=== PATIENT | male | born 1960 | race Caucasian/White ===

== ENCOUNTER 2019-08-24 11:05 | Inpatient (IN) | payer OTHER, SELFPAY ==
--- NOTE | 2019-08-24 11:40 | CT ---
CT BRAIN NONCONTRAST: DATE: 08/24/2019 HISTORY: 59-year-old male with altered mental status: Confusion FINDINGS: There is no evidence of acute intra-axial or extra-axial hemorrhage. There is no midline shift or any other mass effect. There is no extra-axial fluid collection. There is no evidence of obstructive hydrocephalus. Calvarium is intact. IMPRESSION: No acute intracranial findings.
[2019-08-24 11:41] LABS: #Basophils 0.1 thou/uL (0.0-0.2); #Eosinphils 0.4 thou/uL (0.0-0.7); #Lymphocytes 1.4 thou/uL (1.20-3.40); #Monocytes 0.5 thou/uL (0.11-0.59); #Neutrophils 2.5 thou/uL (1.40-6.50); %Basophils 1.4 % (0.0-1.0); %Eosinophils 8.7 % (0.0-10.0); %Lymphocytes 28.4 % (21.0-51.0); %Monocytes 10.5 % (0.0-10.0); %Neutrophils 51.1 % (42.0-75.0); Hemoglobin 10.7 g/dL (14.0-18.0); Mean Corpuscular HGB CONC 34.1 g/dL (32.0-36.0); Mean Corpuscular Hemoglobin 32.4 pg (27.0-31.0); Mean Corpuscular Volume 95.1 fL (78.0-98.0); Mean Platelet Volume 8.2 fL (7.4-10.4); Platelet Count 139 thou/uL (130-400); RBC Distribution Width 14.3 % (11.5-14.5)
[2019-08-24 12:03] LABS: ALT (SGPT) 17 U/L (8-55); AST (SGOT) 37 U/L (5-34); Albumin 2.2 g/dL (3.4-4.8); Alkaline Phosphatase 198 U/L (40-110); Anion Gap 8 mmol/L (10-20); BUN (Urea Nitrogen) 26 mg/dL (8.4-25.7); Bilirubin, Total 1.4 mg/dL (0.2-1.2); Calc. Creatinine Clearance 0 mL/min (70-130); Calcium 7.7 mg/dL (7.8-10.44); Carbon Dioxide 24 mmol/L (23-31); Chloride 112 mmol/L (98-107); Estimated GFR-MDRD 32; Globulin 3.9 g/dL (2.4-3.5); Glucose 101 mg/dL (80-115); Lipase 39 U/L (8-78); Protein, Total 6.1 g/dL (5.8-8.1); Sodium 140 mmol/L (136-145)
--- NOTE | 2019-08-24 12:27 | RAD ---
RADIOGRAPH CHEST 1 VIEW: DATE: 08/24/2019 TIME: 11:43 AM HISTORY: 59-year-old male with dyspnea COMPARISON: none FINDINGS: Dense opacification of lower half to lower two thirds of right lung, heterogeneously so at the right midlung zone. Right apex and all visualized left lung nunez are grossly clear of consolidation and edema. On one of the 2 AP images, there is an approximately 1.7 cm irregularly-shaped nodular densit y with stellate appearance overlying the left midlung zone. It is difficult to visualize on the other image. It could represent calcification at left fifth costochondral junction. However, a pulmon yoselin nodule is a possibility. No pneumothorax. IMPRESSION: 1. Opacification of right mid and lower lung zones. Possibilities include large right pleural effusio n and underlying consolidation or severe atelectasis, large diaphragmatic hernia, or elevated right hemidiaphragm. 2. Questionable spiculated left pulmonary nodule versus artifact. 3. Consider chest CT.
[2019-08-24 13:10] LABS: Bacteria/HPF None Seen HPF (None Seen); Bilirubin Negative (Negative); Blood, Urine 2+ (Negative); Clarity Clear (Clear); Glucose, Urine (Dipstick) Normal (Negative); Leukocyte Negative Leu/uL (Negative); Nitrite Negative (Negative); Protein, Urine (Dipstick) 70 mg/dL (Neg-Trace); RBC/HPF 21-50 HPF (0-3); Squamous Epithelial None Seen HPF (0-3); Urobilinogen 3 mg/dL (Less than 2); WBC/HPF 0-3 HPF (0-3); Yeast-Budding 1+ HPF (None Seen)
--- NOTE | 2019-08-24 13:48 | HP ---
PRIMARY CARE PHYSICIAN: [facility] Call admission. REASON FOR ADMISSION: Hepatic encephalopathy, anasarca. HISTORY OF PRESENT ILLNESS: A 59-year-old male who has underlying history of alcoholic cirrhosis of liver with portal hypertension, who is originally from [place] and he moved to [facility] about two weeks ago. Before coming to the [facility], the patient was admitted at [facility]. The patient required paracentesis and thoracentesis for hepatic hydrothorax and ascites. The patient was given Lasix and Aldactone after discharged from the hospital. The patient came two weeks ago at [facility]. Initially, he was doing okay, but for last 3 to 5 days, the patient has increasing shortness of breath and increasing confusion. The patient was more shaky. The patient did not have any fever. He denies any constipation or melena or hematochezia. He denies any having upper or lower endoscopy. The patient denies any hematemesis in the past. The patient denies any fever or chills or abdominal pain. The patient was evaluated at [facility] and from there, the patient was sent to emergency room. In the emergency room, his CT brain is negative. Chest x-ray showed right-sided pleural effusion. The patient had routine blood test, which showed anemia, chronic kidney disease with creatinine 2.10, but baseline kidney function is not known. The patient also has abnormal LFT. His ammonia level was elevated. The patient was also having asterixis in the emergency room and the patient is being admitted for further evaluation. REVIEW OF SYSTEMS: CONSTITUTIONAL: Negative for weight loss or gain, ability to conduct usual activities. SKIN: Negative for rash, itching. EYES: Negative for double vision, pain. ENT/MOUTH: Negative for nose bleeding, neck stiffness, pain, tenderness. CARDIOVASCULAR: Negative for palpitations, dyspnea on exertion, orthopnea. RESPIRATORY: Negative for shortness of breath, wheezing, cough, hemoptysis, fever or night sweats. GASTROINTESTINAL: Negative for poor appetite, abdominal pain, heartburn, nausea, vomiting, constipation, or diarrhea. GENITOURINARY: Negative for urgency, frequency, dysuria, nocturia. MUSCULOSKELETAL: Negative for pain, swelling. NEUROLOGIC/PSYCHIATRIC: Negative for anxiety, depression. ALLERGY/IMMUNOLOGIC: Negative for skin rash, bleeding tendency. Please see my HPI for pertinent positive and negative. All other review of systems reviewed and negative except as mentioned in the HPI. PAST MEDICAL HISTORY: Alcoholic liver disease with alcoholic cirrhosis with portal hypertension, pleural effusion and ascites, chronic kidney disease. PAST SURGICAL HISTORY: The patient had thoracentesis and paracentesis, but no other surgery. ALLERGIES: NO KNOWN DRUG ALLERGIES. CURRENT HOME MEDICATIONS: 1. Lasix 40 mg daily. 2. Aldactone 100 mg p.o. daily. FAMILY HISTORY: No strong family history of premature coronary artery disease, stroke, or cancer. SOCIAL HISTORY: The patient is originally from [place] and he recently moved to this town for new work, no smoking, he was very heavy alcoholic, but lately he reduced and quit drinking. He denies any other illicit drug abuse. EMERGENCY ROOM COURSE: Reviewed. PHYSICAL EXAMINATION: VITAL SIGNS: Currently, blood pressure 144/66, pulse 72, respiratory rate 16, temperature 98.8, saturation 99% on room air. Weight 99 kg. GENERAL: The patient is alert, awake, confused, chronically ill, no acute distress. HEAD: Normocephalic, atraumatic. EYES: Icterus noted. No nystagmus. Extraocular muscle intact. ENT: Oropharynx within normal limits. Moist mucous membranes. No pharyngeal erythema. No exudate. NECK: Supple. No JVD. No meningeal signs of irritation. LUNGS: Air entry reduced at the right side, no rales, no wheeze. No accessory muscles of respiration in use. CARDIAC: S1 and S2 regular, soft systolic murmur noted, PVCs noted on phototypesetting equipment monitor. ABDOMEN: Soft, bowel sounds present, nontender. No organomegaly. Ascites noted. No peritoneal sign. BACK: Unremarkable. No CVA tenderness. EXTREMITIES: Upper extremity; passive movement of all joints are normal. Asterixis noted. Lower extremity; bilateral lower extremity pitting edema noted. Good distal pulsation. SKIN: No skin rash. HEMATOLOGICAL SYSTEM: No lymphadenopathy. PSYCHIATRIC: Normal affect. NEUROLOGIC: Grossly nonfocal examination, but asterixis noted. SIGNIFICANT LABORATORY DATA: EKG showing bigeminy. Chest x-ray showing right pleural effusion. CT brain showing no acute intracranial process. CT chest also showing spiculated left pulmonary nodule. CBC; WBC 5.0, hemoglobin 10.7, platelet 139. BMP; sodium 140, potassium 4.0, chloride 112, carbon dioxide 24, anion gap 8, BUN 26, creatinine 2.10, glucose 101, calcium 7.7. LFT; AST 37, ALT 17, alkaline phosphatase 198, albumin 2.2, lipase 39. Troponin negative. Ammonia 98. Lactic acid 1.10. Alcohol level less than 10. ASSESSMENT: 1. Hepatic encephalopathy. 2. Acute kidney failure. 3. Anasarca due to cirrhosis of liver. 4. Hepatic hydrothorax. 5. Ascites. 6. Abnormal LFTs due to chronic liver disease. 7. Spiculated pulmonary nodule. PLAN: 1. Full admission to telemetry floor. Nephrologic consultation for acute kidney failure. Gastroenterology consultation for cirrhosis of liver. Lactulose 20 g q.i.d., rifaximin [address] chest without contrast to rule out a pulmonary nodule. The patient may need pulmonary consultation for thoracentesis if needed. We will monitor renal function. We will empirically start Rocephin 1 g q.24 hour. We will check alpha-fetoprotein level, HIV, hepatitis profile. Further investigation will defer to Neph regional engagement consultant. The patient will need medical records to be obtained from other hospital before deciding more testing. 2. Deep venous thrombosis prophylaxis, SCD boots. We will check coagulation panel. 3. Gastrointestinal prophylaxis, Protonix 40 mg IV daily. CODE STATUS: The patient is full code. DISPOSITION PLAN: Based on clinical course. We are expecting the patient stay in hospital more than 2 midnights. Plan of care discussed with the patient and family member at bedside. Job ID: [id number]
[2019-08-24] MEDS ORDERED: Sodium Chloride 0.65% Nasal 44 ML BOT EA NARE PRN (15:36)
[2019-08-24] MEDS ORDERED: Artificial Tears 18 DROP/0.9 ML EA EYE PRN (15:36)
[2019-08-24] MEDS ORDERED: Bisacodyl 10 MG SUPP PR PRN (15:36)
[2019-08-24] MEDS ORDERED: hydrALAZINE 20 MG/ML VIAL SLOW IVP PRN (15:36)
[2019-08-24] MEDS ORDERED: Calcium Carbonate 500 MG ChewTAB PO PRN (15:36)
[2019-08-24] MEDS ORDERED: Acetaminophen 325 MG TAB PO PRN (15:36)
[2019-08-24] MEDS ORDERED: Cepastat Lozenges 1 LOZ PO PRN (15:36)
[2019-08-24] MEDS ORDERED: Senokot S 8.6-50 MG TAB PO PRN (15:36)
[2019-08-24] MEDS ORDERED: Ondansetron ODT 4 MG TAB PO PRN (15:36)
[2019-08-24] MEDS ORDERED: Ondansetron PF 4 MG/2 ML Vial IVP PRN (15:36)
[2019-08-24 15:46] VITALS: BMI 32.1
[2019-08-24] MEDS ORDERED: Furosemide 40 MG/4 ML VIAL SLOW IVP SCH (16:45)
[2019-08-24 16:49] LABS: Creatinine, Urine 120.29 mg/dL (63-166)
[2019-08-24 16:59] LABS: INR-International Normal Ratio 1.2; Prothrombin Time 14.9 sec (12.0-14.7)
[2019-08-24] MEDS: cefTRIAXone\\ROCEPHIN 1 GM in Sodium Chloride 0.9% 100 ML IVPB SCH (17:00)
[2019-08-24 17:20] LABS: Protein, Urine Random Quant 107 mg/dL (1-14); Urea Nitrogen, Random Urine 636 mg/dl
[2019-08-24 17:37] LABS: Ferritin 287.29 ng/mL (22-322)
[2019-08-24 17:43] LABS: Vitamin B12 729 pg/mL (211-911)
[2019-08-24 17:51] LABS: HBCM Index 0.09 S/CO (0-0.79); HBSAg Index 0.17 S/CO (0-0.99); HIV (1/2) Antibody/Antigen Non-Reactive (NonReactive); HIV 1/2 INDEX 0.13 S/CO (<1.00); Hep A IgM AB Non-Reactive (NonReactive); Hep A IgM S/CO 0.12 S/CO (0-0.79); Hep B Surf Ag Non-Reactive S/CO (NonReactive); Hep C IgG Ab Non-Reactive (NonReactive); Hep C Index 0.39 S/CO (0-0.79); Hepatitis B Core IgM Abs Non-Reactive (NonReactive)
--- NOTE | 2019-08-24 21:00 | CON ---
DATE OF CONSULTATION: 08/24/2019 SERVICE: Nephrology. REASON FOR CONSULTATION: Renal failure and volume overload. REQUESTING PHYSICIAN: Dr. Awais Apodaca. HISTORY OF PRESENT ILLNESS: A 59-year-old male patient with known history of cirrhotic liver disease, chronic kidney disease, and anasarca requiring prior thoracentesis and paracentesis, brought into the hospital due to altered mental sensorium of worsening forgetfulness and some confusion as well as some shortness of breath. The patient reportedly was diagnosed with liver disease and chronic kidney disease in 2016 when he was hospitalized in a [place] [facility]. He was subsequently discharged, but has been off medication up until about 3 weeks ago when he was hospitalized in a hospital in [place] when he was diuresed and also had paracenteses and thoracentesis for anasarca and shortness of breath. Patient reportedly has been doing well since discharge from the hospital in [place], but in the last few days was noted to be having increasing shortness of breath as well as some increasing confusion and memory lapses, hence was asked to come to the hospital for further evaluation and treatment. The patient denied nausea, vomiting, abdominal pain, chest pain, change in bowel habits, dizziness, headache, dysuria, hematuria, hematochezia, hematemesis, or dizziness. He admitted to generalized swelling, but reported that it markedly improved compared to his situation before hospitalization in [place]. On evaluation in the emergency room, the patient was found to have abnormal LFT as well as elevated creatinine of 2.1, hence was admitted to the hospital. He also was found to have elevated ammonia, hence diagnosis of hepatic encephalopathy as well as renal failure was made and the patient was admitted for further evaluation and treatment. He denied fever, chills, or cough. PAST MEDICAL HISTORY: 1. Alcohol liver disease with cirrhosis associated with decompensation, portal hypertension, and paracentesis as well as recurrent pleural effusion. 2. Chronic kidney disease. 3. Prior history of diabetes as well as morbid obesity. 4. Chronic alcohol use. PAST SURGICAL HISTORY: 1. Thoracentesis. 2. Paracentesis. FAMILY HISTORY: No strong family history of premature coronary artery disease, stroke, or cancer. SOCIAL HISTORY: The patient is . He used to live in [place], but now in [place] living with friends. He used to be a heavy alcohol user, but quit about 3-1/2 years ago. He also denied recreational drug use. ALLERGIES: NO KNOWN DRUG ALLERGIES REPORTED. CURRENT HOME MEDICATIONS: 1. Lasix 40 mg p.o. daily. 2. Aldactone 100 mg p.o. daily. 3. The patient also reported having some lactulose at home that he may not be taking it regularly. REVIEW OF SYSTEMS: A 12-point review of system performed was negative other than pertinent positives and negatives included in the history of present illness. PHYSICAL EXAMINATION: VITAL SIGNS: Temperature 98.1, pulse 74, respiratory rate 20, SpO2 of 97% on room air, blood pressure is 159/78. GENERAL: Middle-age male, in no obvious distress. Afebrile, acyanotic. HEENT: Normocephalic, atraumatic. Oral mucosa is moist. NECK: Supple with no JVD. CARDIOVASCULAR: Irregularly irregular with bigeminal PVCs. Normal. heart sounds 1 and 2. RESPIRATORY SYSTEM: Good air entry bilaterally except right base posteriorly with decreased air entry. No obvious rhonchi or use of accessory muscles appreciated. GASTROINTESTINAL: Abdomen is enlarged, but nontender. Bowel sound is normoactive. EXTREMITIES: [id number] bilateral leg edema noted. No erythema or cyanosis was appreciated. CENTRAL NERVOUS SYSTEM: Conscious, alert, oriented x3 with appropriate mental status. Memory lapses were appreciated. Cranial nerves 2 through 12 are grossly intact. No obvious asterixis or tremor appreciated. DIAGNOSTIC DATA: LABORATORY RESULTS: CBC showed WBC count of 5.0, hemoglobin of 10.7, MCV of 95.1, platelets of 139. Coagulation panel showed PT 14.9, INR 1.2. Chemistry showed sodium 140, potassium 4.0 chloride 112, CO2 of 24, BUN 26, creatinine 2.10, glucose 101, calcium 7.7, total bilirubin 1.4, AST 37, ALT was 17, alkaline phosphatase 198, total protein 6.1, albumin 2.2. Ammonia level is 98. Troponin is less than 0.010. Lactic acid is 1.1. Urinalysis showed clear yellow urine with pH of 6.5, specific gravity of 1.015, urine protein 70, normal glucose, negative ketone, 2+ blood, negative nitrite, bilirubin, and leukocyte esterase. Microscopy showed 21 to 50 rbc's and 0 to 3 wbc's with no bacteria noted. IMAGING STUDIES: Chest x-ray showed opacification of the right mid and lower lung zones with possibilities including large right pleural effusion and underlining consolidation or severe atelectasis, large diaphragmatic hernia or elevated right hemidiaphragm. There is a questionable spiculated left pulmonary nodule versus artifact noted, hence CT scan of the chest is recommended. CT scan of the brain showed no acute intracranial finding. ASSESSMENT: 1. Elevated creatinine: The patient has known history of chronic kidney disease. Baseline creatinine is unknown. due to acute on chronic renal failure or stable chronic kidney disease. Renal insufficiency is most likely due to hepatorenal syndrome or diabetic nephropathy given prior history of diabetes, which has subsided when patient lost significant amount of weight. 2. Known chronic kidney disease of unclear baseline creatinine. 3. Anasarca: Due to decompensated liver cirrhosis. 4. Liver cirrhosis with portal hypertension: Decompensated associated with right hydrothorax and recurrent ascites, status post recent thoracentesis and paracentesis. 5. Hypoalbuminemia. 6. Hepatic encephalopathy: This seems to be mild mostly due to memory lapses. PLAN: 1. Agree with diuretic therapy with Lasix and Aldactone. 2. We will also get him urine protein creatinine ratio as well as urine electrolytes to calculate the fractional excretion of urea and sodium. 3. We will monitor intake and output as well as renal function and electrolytes. 4. Albumin therapy is contemplated. 5. We will also get medical records from [facility] as well as the hospital in [place]. 6. Further treatment to follow depending on hospital course. Job ID: [id number]
[2019-08-24] MEDS: Rifaximin 550 MG TAB PO SCH (21:05)
[2019-08-25 04:58] LABS: #Basophils 0.1 thou/uL (0.0-0.2); #Eosinphils 0.5 thou/uL (0.0-0.7); #Lymphocytes 1.4 thou/uL (1.20-3.40); #Monocytes 0.5 thou/uL (0.11-0.59); #Neutrophils 2.2 thou/uL (1.40-6.50); %Basophils 1.5 % (0.0-1.0); %Eosinophils 9.9 % (0.0-10.0); %Lymphocytes 29.6 % (21.0-51.0); Hemoglobin 9.7 g/dL (14.0-18.0); Mean Corpuscular HGB CONC 33.6 g/dL (32.0-36.0); Mean Corpuscular Hemoglobin 32.4 pg (27.0-31.0); Mean Corpuscular Volume 96.3 fL (78.0-98.0); Mean Platelet Volume 8.2 fL (7.4-10.4); Platelet Count 121 thou/uL (130-400); RBC Distribution Width 14.4 % (11.5-14.5); Red Blood Cell (RBC) Count 3.01 mill/uL (4.70-6.10); White Blood Cell (WBC) Count 4.6 thou/uL (4.8-10.8)
[2019-08-25] MEDS: Furosemide 40 MG/4 ML VIAL SLOW IVP SCH ×2 (05:12→13:19)
[2019-08-25 05:18] LABS: ALT (SGPT) 14 U/L (8-55); AST (SGOT) 32 U/L (5-34); Albumin 1.8 g/dL (3.4-4.8); Alkaline Phosphatase 143 U/L (40-110); Anion Gap 11 mmol/L (10-20); BUN (Urea Nitrogen) 25 mg/dL (8.4-25.7); Bilirubin, Total 1.3 mg/dL (0.2-1.2); Calc. Creatinine Clearance 57 mL/min (70-130); Calcium 7.3 mg/dL (7.8-10.44); Carbon Dioxide 21 mmol/L (23-31); Chloride 112 mmol/L (98-107); Estimated GFR-MDRD 34; Globulin 3.4 g/dL (2.4-3.5); Glucose 130 mg/dL (80-115); Potassium 3.7 mmol/L (3.5-5.1); Protein, Total 5.2 g/dL (5.8-8.1); Sodium 140 mmol/L (136-145)
[2019-08-25] MEDS: Albumin 25% 25 GM/100 ML BOT IVPB SCH ×3 (07:17→21:45)
[2019-08-25] MEDS ORDERED: Spironolactone 100 MG TAB PO SCH (08:00)
[2019-08-25] MEDS: Sodium Bicarbonate Tab 325 MG TAB PO SCH ×3 (08:29→21:44)
[2019-08-25] MEDS: Rifaximin 550 MG TAB PO SCH ×2 (08:29→21:44)
--- NOTE | 2019-08-25 13:15 | PDOC.HOSPP ---
- Subjective Encounter Date: 08/25/19 Encounter Time: 13:10 Subjective: f/u for decompensated hepatic cirrhosis with NIKI likely due to hepatorenal syndrome. States feeling better, no confusion, less swelling on legs. - Objective Vital Signs & Weight: Vital Signs (12 hours) Temp Pulse Resp BP BP Pulse Ox 08/25/19 11:16 98.0 F 70 16 139/77 96 08/25/19 07:43 98.0 F 72 16 130/76 97 08/25/19 03:31 97.7 F 54 L 20 118/72 98 Weight Weight 220 lb I&O: 08/24/19 08/25/19 08/26/19 06:59 06:59 06:59 Intake Total 400 Balance 400 Result Diagrams: 08/25/19 04:30 08/25/19 04:30 Additional Labs: Laboratory Tests 08/24/19 08/24/19 08/24/19 11:27 11:27 16:34 Creatinine 2.10 H Ammonia 98 H Lipase 39 Tumor Marker AFP Less than 2.0 Vitamin B12 Folate Hepatitis A IgM Ab Hep Bs Antigen Hep B Core IgM Ab Hepatitis C Antibody HIV 1&2 Antigen & Ab 08/24/19 08/24/19 16:34 16:35 Creatinine Ammonia Lipase Tumor Marker AFP Vitamin B12 729 Folate 8.60 Hepatitis A IgM Ab Non-Reactive Hep Bs Antigen Non-Reactive Hep B Core IgM Ab Non-Reactive Hepatitis C Antibody Non-Reactive HIV 1&2 Antigen & Ab Non-Reactive Radiology Reviewed by me: Yes (CT brain - no acute process) EKG Reviewed by me: Yes (Tele - SR) Hospitalist ROS - Medication Medications: Active Medications Generic Name Dose Route Start Last Admin Trade Name Freq PRN Reason Stop Dose Admin Albumin Human 25 gm 08/25/19 06:30 08/25/19 07:17 Albumin 25% IVPB 08/25/19 22:31 25 gm Q8H GUSTABO Administration Furosemide 40 mg 08/25/19 06:00 08/25/19 05:12 Lasix SLOW IVP 40 mg 0600,1400 GUSTABO Administration Ceftriaxone Sodium 1 gm/ 100 mls @ 200 mls/hr 08/24/19 17:00 08/24/19 17:00 Sodium Chloride IVPB 100 mls Q24HR GUSTABO Administration Lactulose 20 gm 08/24/19 17:00 08/25/19 08:29 Lactulose PO 20 gm QID GUSTABO Administration Pantoprazole Sodium 40 mg 08/25/19 09:00 08/25/19 08:29 Protonix PO 40 mg DAILY GUSTABO Administration Rifaximin 550 mg 08/24/19 21:00 08/25/19 08:29 Xifaxan PO 550 mg BID GUSTABO Administration Sodium Bicarbonate 650 mg 08/25/19 09:00 08/25/19 08:29 Bicarbonate, Sodium PO 650 mg TID GUSTABO Administration Spironolactone 100 mg 08/25/19 08:00 08/25/19 08:29 Aldactone PO 100 mg QAM-WM GUSTABO Administration - Exam General Appearance: NAD, awake alert Eye: PERRL, anicteric sclera ENT: normocephalic atraumatic, no oropharyngeal lesions Neck: supple, symmetric, no JVD, no thyromegaly Heart: RRR, no murmur, no gallops, no rubs, normal peripheral pulses Heart - other findings: S1, S2 Respiratory: CTAB, no wheezes, no rales, no ronchi, normal chest expansion, no tachypnea Gastrointestinal: soft, non-tender, normal bowel sounds, no guarding, no rigidity Gastrointestinal - other findings: mild distention Extremities: no cyanosis, no clubbing, 1+ LE edema Skin: normal turgor, no lesions Neurological: cranial nerve grossly intact, no new deficit Musculoskeletal: normal tone, normal strength Psychiatric: normal affect, A&O x 3 Hosp A/P (1) Acute hepatic encephalopathy Code(s): K72.00 - ACUTE AND SUBACUTE HEPATIC FAILURE WITHOUT COMA Status: Acute Plan: Improved, continue Lactulose, serial monitoring (2) Hepatic cirrhosis Code(s): K74.60 - UNSPECIFIED CIRRHOSIS OF LIVER Status: Chronic Qualifiers: Hepatic cirrhosis type: alcoholic cirrhosis Plan: Continue Aldactone/Rifaximin, low-Na+ diet (3) NIKI (acute kidney injury) Code(s): N17.9 - ACUTE KIDNEY FAILURE, UNSPECIFIED Status: Acute Plan: Slow improvement, continue current rx, avoid nephrotoxic meds/limit contrast exposure (4) Normocytic anemia Code(s): D64.9 - ANEMIA, UNSPECIFIED Status: Chronic Plan: No evidence of acute blood loss, serial H/H monitoring, PPI - Plan perinatal social worker, out of bed/ambulate, DVT proph w/SCDs Stable currently Continue Aldactone/Lasix Continue Xifaxan OOB/ambulate AM lab: CMP, CBC, Ammonia Likely home in 24h
--- NOTE | 2019-08-25 14:13 | CON ---
DATE OF CONSULTATION: 08/24/2019 REASON FOR CONSULTATION: Liver cirrhosis, mild tremors of the hands, and also swelling of the legs. HISTORY OF PRESENT ILLNESS: Mr. Diego Carlin is a 59-year-old male with history of liver cirrhosis due to alcohol abuse that was diagnosed about 3-1/2 years ago. The patient lived in [place] at that time. The patient was hospitalized after he ingested some alcohol and some medication and he was in . The patient tells me for several days. At that time, he was diagnosed with liver cirrhosis due to alcohol abuse. He also had done at that time and had to go back one more time. He also of the pleural effusion on the right side. The patient had done well after he stopped drinking. The patient has moved to [place] for a couple of years from [place]. He was taking diuretics before, but he stopped taking diuretics . The patient has done well over the last couple of years. He moved to [facility] two weeks ago. The patient's friend told him that he has leg swelling and also abdominal swelling and he told him to come to the ER. In the ER, he was also found to have mild asterixis of the upper extremities. Serum ammonia levels are elevated and he was hospitalized. The patient has no prior history of . No prior history of GI bleeding. He never had a colonoscopy, but he tells me he had EGD done 3-1/2 years ago in [place]. He does not recall varicose veins. The patient was drinking very heavily until about 3 years ago. After diagnosis of liver cirrhosis, he quit drinking completely. He is awake, alert, and communicative. He is able to give me a reasonably good history. He has no history of any drug use. His lab data showed serum ammonia level of 98, which is elevated. His Chem-7 is normal except for BUN of 26, creatinine of 2.10. His calcium level is 7.7, bilirubin 1.4, AST 37, ALT 17. He has no relevant history. ALLERGIES: NONE. SOCIAL HISTORY: The patient is . He does not smoke, but has history of alcohol abuse until three years ago. No history of drug abuse. MEDICAL ILLNESSES: Liver cirrhosis, ascites due to alcohol abuse. No history of hypertension. No diabetes. No kidney disease. No lung disease. PAST SURGICAL HISTORY: None except for the paracentesis and also EGD done. FAMILY HISTORY: No family history of cancer. No family history of liver cirrhosis, heart attack, or lung disease. MEDICATIONS: Reviewed, which include: 1. Aldactone 100 once a day. 2. Furosemide 40 once a day. REVIEW OF SYSTEMS: Ten-point system review: CONSTITUTIONAL: No history of any fever or chills. Has good exercise tolerance. However, he has been losing weight and lost about 10 pounds. HEAD: No chronic headache. EYES: No impaired vision. No diplopia. EARS: No hearing loss. No discharge. NOSE: No nose bleed. THROAT: No sore throat. No dysphagia. NECK: No stiffness or limitation of movement. LUNGS: No chronic coughing, hemoptysis, dyspnea. CARDIOVASCULAR SYSTEM: No chest pain. No palpitation. No dyspnea, orthopnea, PND. GI: No abdominal pain. No nausea, no vomiting. No hematochezia or melena. : No dysuria, hematuria. MUSCULOSKELETAL, NEUROLOGIC, ENDOCRINE, HEMATOLOGICAL: Not known. PHYSICAL EXAMINATION: GENERAL: He is a very pleasant male. He appears comfortable. He is able to give me a reasonably good history. He is awake, alert, and communicative. He knows the date, time, place and where he is at. VITAL SIGNS: Afebrile, pulse is 74, blood pressure 159/78. HEENT: Conjunctivae are clear. NECK: Supple. No adenitis or thyromegaly noted. CARDIOVASCULAR SYSTEM: First and second heart sounds heard. LUNGS: Clear to auscultation. ABDOMEN: Distended, but soft. Abdomen is not firm, nontender. No organomegaly. No masses. EXTREMITIES: Reveal 2+ edema. SECOND VP HR ASSESSMENT: Grossly within normal limits, however, he has mild tremors on both upper extremities. LABORATORY DATA: Lytes are normal. BUN is 26, creatinine 2.10, glucose 101, calcium 7.7. Bilirubin 1.4, AST 37, ALT 17, alkaline phosphatase 198. Ammonia is elevated at 98. Albumin is 2.2. CBC shows mild anemia, hemoglobin 10.7, hematocrit 31.4, MCV 95.1, platelet count 139,000, polymorphs 51, lymphocytes 28, monocytes 10. CLINICAL IMPRESSION: A 59-year-old male with liver cirrhosis, ascites. Liver cirrhosis because of alcohol abuse. The patient presents with high ammonia level and also mild tremors of upper extremities. It is possible RECOMMENDATIONS: Lactulose 30 mL every 2 to 3 hours until he has multiple stools. If he starts having multiple loose stools, may cut down the lactulose to may be every 6 hours. At the present time, he is not septic and he has no evidence of any bleeding. I will make further recommendation depending on the hospital course. Job ID: [id number]
--- NOTE | 2019-08-25 14:39 | PRG ---
DATE OF SERVICE: 08/25/2019 SUBJECTIVE: This is a 59-year-old male, hospitalized with anasarca and mild encephalopathy. His ammonia level was 98. He is on lactulose . He is doing much better today. He has had 2 stools today. There is no abdominal pain, no nausea or vomiting. OBJECTIVE: GENERAL: He is awake, alert, oriented to time, place and person. VITAL SIGNS: Temperature is 98 degrees Fahrenheit, pulse is 70, and blood pressure is 139/77. CARDIOVASCULAR: Normal heart sounds. LUNGS: Clear to auscultation. ABDOMEN: Distended, but soft to palpate. No organomegaly. No tenderness. EXTREMITIES: Trace edema. IMPRESSION: 1. Liver cirrhosis. 2. Ascites. 3. Right pleural effusion. 4. Mild encephalopathy. RECOMMENDATION: 1. Continue lactulose. 2. Continue Xifaxan. 3. Low-sodium diet and continue diuretics. Also, recommend liver parenchyma. Job ID: [id number]
--- NOTE | 2019-08-25 15:33 | PRG ---
DATE OF SERVICE: 08/25/2019 SERVICE: Nephrology. SUBJECTIVE: A 59-year-old male with liver cirrhosis, admitted due to shortness of breath and mental status change of confusion and memory lapses. Nephrology is seeing the patient for renal insufficiency and edema. The patient reports feeling better. Shortness of breath has subsided. Denied nausea, vomiting, dysuria, hematuria, hematemesis, change in bowel habit, headache, dizziness, and difficulty urinating. OBJECTIVE: VITAL SIGNS: Temperature 98.0, pulse rate 72, respiratory rate 16, SpO2 of 97% on room air, and blood pressure is 130/72. I and O in the last 24 hours showed only total intake of 400. No urine output was measured. GENERAL: Comfortable male patient, in no obvious distress. Afebrile. Anicteric. Acyanotic. HEENT: Normocephalic and atraumatic. Oral mucosa is moist. NECK: Supple with no JVD. CARDIOVASCULAR: Regular rhythm and rate with normal heart sounds 1 and 2. RESPIRATORY: Fair air entry bilaterally with no obvious rhonchi or use of accessory muscles. Air entry decreased posteriorly, right base. GI: Abdomen is enlarged, soft, nontender, and nondistended with normal bowel sounds. EXTREMITIES: [id number] bilateral leg edema noted. No erythema appreciated. 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 Cranial nerves II through XII are grossly intact. No obvious asterixis noted. DIAGNOSTIC DATA: CBC today showed WBC count of 4.6, hemoglobin of 9.7, MCV of 96.3, and platelet of 121. Chemistry today showed sodium 140, potassium 3.7, chloride 112, CO2 of 21, BUN 25, creatinine 2.02, glucose 130, calcium 7.3, total bilirubin 1.3, AST 32, ALT 14, alkaline phosphatase 143, total protein 5.2, and albumin 1.8. ASSESSMENT: 1. Renal insufficiency: Most likely chronic kidney disease. However, acute kidney injury cannot be ruled out. The patient reported knowledge of chronic kidney disease since 2016. 2. Presumed chronic kidney disease, stage 3. Baseline creatinine is unknown. 3. Volume overload: Due to decompensated liver cirrhosis. 4. Metabolic acidosis. 5. Hypoalbuminemia. 6. Hypocalcemia. 7. Decompensated liver cirrhosis with anasarca. PLAN: 1. We will continue diuretic therapy. We will however increase spironolactone to 100 mg b.i.d. while continuing current dose of Lasix. 2. We will also start the patient on albumin infusion. 3. We will also get vitamin D level and start vitamin D supplementation if indicated. 4. We will also start sodium bicarbonate due to metabolic acidosis. 5. We will recheck CMP in the morning. 6. Further treatment to follow depending on hospital course. Job ID: [id number]
[2019-08-25] MEDS: cefTRIAXone\\ROCEPHIN 1 GM in Sodium Chloride 0.9% 100 ML IVPB SCH (16:33)
[2019-08-25] MEDS ORDERED: Melatonin 3 MG TAB PO PRN (21:37)
[2019-08-25] MEDS: Spironolactone 100 MG TAB PO SCH (21:44)
[2019-08-26 04:37] LABS: ALT (SGPT) 13 U/L (8-55); AST (SGOT) 31 U/L (5-34); Albumin 2.5 g/dL (3.4-4.8); Alkaline Phosphatase 155 U/L (40-110); Anion Gap 10 mmol/L (10-20); BUN (Urea Nitrogen) 26 mg/dL (8.4-25.7); Bilirubin, Total 1.1 mg/dL (0.2-1.2); Calc. Creatinine Clearance 43 mL/min (70-130); Calcium 7.8 mg/dL (7.8-10.44); Carbon Dioxide 22 mmol/L (23-31); Chloride 112 mmol/L (98-107); Estimated GFR-MDRD 26; Globulin 3.3 g/dL (2.4-3.5); Glucose 116 mg/dL (80-115); Potassium 3.7 mmol/L (3.5-5.1); Protein, Total 5.8 g/dL (5.8-8.1); Sodium 140 mmol/L (136-145)
[2019-08-26] MEDS: Furosemide 40 MG/4 ML VIAL SLOW IVP SCH (05:32)
[2019-08-26 05:49] LABS: Band 2 % (5-11); Eosinophils 9 % (0-10); Hemoglobin 9.3 g/dL (14.0-18.0); Lymphocytes 29 % (21-51); MDiff Complete? YES; Mean Corpuscular HGB CONC 32.7 g/dL (32.0-36.0); Mean Corpuscular Volume 94.9 fL (78.0-98.0); Mean Platelet Volume 8.4 fL (7.4-10.4); Monocytes 8 % (0-10); Neutrophil 51 % (42-75); Platelet Count 121 thou/uL (130-400); Platelet Morphology Comment Appears Decreased; RBC Distribution Width 14.3 % (11.5-14.5); Red Blood Cell (RBC) Count 2.99 mill/uL (4.70-6.10)
[2019-08-26] MEDS: Sodium Bicarbonate Tab 325 MG TAB PO SCH (08:39)
[2019-08-26] MEDS: Spironolactone 100 MG TAB PO SCH (08:39)
[2019-08-26] MEDS: Rifaximin 550 MG TAB PO SCH (08:40)
[2019-08-26] MEDS ORDERED: Ergocalciferol 1.25 MG(50,000 UNITS) CAP PO SCH (09:00)
[2019-08-26 11:20] VITALS: BP 119/58; TEMP 98
--- NOTE | 2019-08-26 13:35 | PRG ---
DATE OF SERVICE: 08/26/2019 SERVICE: Nephrology. SUBJECTIVE: A 59-year-old male patient seen in followup for CKD management. The patient reports significant improvement in bilateral leg edema. Denied nausea, vomiting. Confusion and memory lapses have subsided. The patient desires to be discharged home today. OBJECTIVE: VITAL SIGNS: Temperature 98.0, pulse 73, respiratory rate 16, SpO2 of 96% on room air, blood pressure is 119/58. I and O in the last 24 hours showed total intake of 1972 with total output of 1150. Weight is down from 220 pounds yesterday to 217 pounds today. GENERAL: Middle-age male, in no distress. Afebrile. Anicteric. Acyanotic. HEENT: Normocephalic, atraumatic. Oral mucosa is moist. CARDIOVASCULAR: Regular rhythm and rate. Normal heart sounds 1 and 2. RESPIRATORY: Decreased air entry, right base posteriorly. Other lung zones have good air entry bilaterally. No obvious crackle or use of accessory muscles appreciated. GI: Mildly enlarged, soft, nontender, nondistended with normal bowel sounds. EXTREMITIES: Mild bilateral leg edema noted. No erythema appreciated. 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 Cranial nerves 2 through 12 are grossly intact. DIAGNOSTIC DATA: CBC showed WBC count of 4.0, hemoglobin of 9.3, platelet of 121. Chemistry showed sodium 140, potassium 3.7, chloride 112 CO2 of 22, BUN 26, creatinine 2.56, glucose 116, calcium 7.8, total bilirubin 1.1, AST 31, ALT 13, alkaline phosphatase 155, total protein 5.8, albumin 2.5. Ammonia is 61. Vitamin D level is 6.2. Of note, yesterday August 25, 2019, CO2 was 21, BUN 25, creatinine 2.02. ASSESSMENT: 1. Chronic kidney disease with acute reversible component. Acute elevation in creatinine from 2.02 to 2.56, most likely related to diuretic therapy. 2. Chronic kidney disease of unclear stage, most likely chronic kidney disease 3. 3. Hypoalbuminemia. 4. Metabolic acidosis. 5. Vitamin D deficiency. 6. Acute encephalopathy: Resolved. 7. Decompensated liver cirrhosis with mild ascites and right hydrothorax as well as volume overload. PLAN: 1. We will discontinue Lasix for now. We will however continue spironolactone. 2. We will start vitamin D supplementation. 3. Salt restriction was discussed with the patient. 4. Disposition: The patient can be discharged from Nephrology point of view. Outpatient followup in 2 weeks is recommended with repeat labs. Please call for any clarification or questions. If the patient; however, is not discharged today, we will get CMP in the morning. Job ID: [id number]
--- NOTE | 2019-08-26 13:44 | ULT ---
ABDOMINAL ULTRASOUND: Indications: Ascites with liver cirrhosis. Comparison: None FINDINGS: Gallbladder is not identified. Recommend correlation with history of cholecystectomy. Common bile duct is upper normal caliber measuring 7 mm. This may be normal if patient is post cholec ystectomy. Images of the liver reveal a lobular hypoechoic mass like area which appears to project medially from the right lobe of the liver measuring approximately 4 x 10 cm. Hepatic mass should be excluded and r ecommend further evaluation with CT abdomen with and without contrast. Spleen unremarkable. Visualized aorta and IVC unremarkable. The pancreas is obscured. Mild hydro involving the right kidney. The kidneys are otherwise unremarkable. Low volume ascites is noted. IMPRESSION: 1. Evidence of liver mass projecting medially. Recommend further evaluation with CT abdomen with and without contrast. 2. Mild right hydronephrosis. Recommend this be evaluated with CT abdomen and pelvis exam, which coul d be performed at the same time. 3. Small volume ascites. 4. The gallbladder is not identified. Recommend correlation regarding surgical history. POS: AGW
--- NOTE | 2019-08-26 13:45 | PRG ---
DATE OF SERVICE: 08/26/2019 SUBJECTIVE: This is a 59-year-old male hospitalized for 3 days ago with anasarca and also mild asterixis felt to be due to hepatic encephalopathy. The patient is on lactulose and also rifaximin. His mental status is back to baseline. He is alert, awake, and oriented to time, place, and person. He has no complaints. OBJECTIVE: VITAL SIGNS: His pulse is 73, blood pressure 119/58, afebrile. CARDIOVASCULAR SYSTEM: Normal heart sounds. LUNGS: Clear to auscultation. ABDOMEN: Soft to palpate. No organomegaly. No tenderness. No masses. Abdomen is mildly distended with minimal ascites. EXTREMITIES: He has 1+ edema. LABORATORY DATA: Today CBC: WBC 4000, hemoglobin 9.3, hematocrit 28.4, platelet count 121,000. Lytes normal. Chem-7; BUN is 26, creatinine 2.56, glucose 116, calcium 7.8, bilirubin 1.1, AST 31, ALT 39, alkaline phosphatase is 155. IMPRESSION: 1. Liver cirrhosis, ascites. 2. Hepatic encephalopathy, resolved. 3. Mild anemia. 4. Chronic kidney disease. RECOMMENDATION: 1. Continue lactulose and rifaximin. 2. Continue diuretics. 3. Low-sodium diet. 4. Fluid restriction to 1800 mL over 24 hours. The patient advised to come back to me in a week to 10 days time as outpatient. I have given my office number to call back for followup. Job ID: [id number]
--- NOTE | 2019-08-26 14:20 | DIS ---
DATE OF ADMISSION: 08/24/2019 DATE OF DISCHARGE: 08/26/2019 DISCHARGE DIAGNOSES: 1. Acute hepatic encephalopathy secondary to hepatic cirrhosis. 2. Hepatic cirrhosis, decompensated. 3. Acute kidney injury on chronic kidney disease, stage 3. 4. Normocytic anemia. 5. Metabolic acidosis. CONSULTATIONS: 1. Dr. Rosario with GI Service. 2. Dr. Sandoval with Nephrology Service. PERTINENT LABORATORY AND X-RAY FINDINGS: Carbon dioxide level ranged between 21 to 24. Creatinine ranged between 2.02 to 2.56. Estimated GFR ranged between 26 to 34. Ferritin 287. AST ranged between 31 to 32, ALT ranged between 13 to 14, alkaline phosphatase ranged between 143 to 155. Serum ammonia level ranged between 61 to 98. Albumin ranged between 1.8 to 2.5. AFP less than 2. Vitamin B12 level 729. Folate level 8.6. 25-hydroxy related vitamin D level 6.2. CBC showed a white blood cell count ranging between 4.0 to 5.0, hemoglobin ranged between 9.3 to 10.7. Hepatitis A, B, and C panel negative. HIV-1 and HIV-2 antigen and antibody nonreactive. Portable chest x-ray dated 08/24/2019 showed infiltrate of the right mid and lower lung zones, likely due to pleural effusion. CT of the brain without contrast dated 08/24/2019 showed no acute intracranial process. 2D transthoracic echocardiogram dated 08/25/2019 showed ejection fraction of 55% to 60%. Moderate mitral regurgitation. Abdominal ultrasound dated 08/26/2019, pending at the time of this dictation. HOSPITAL COURSE: The patient was initially admitted after presenting with altered mental status in the context of hepatic encephalopathy and hepatic cirrhosis. The patient was noted with elevated ammonia levels in the 90 range and placed on lactulose and rifaximin. The patient clinically improved with the addition of the rifaximin and lactulose and general supportive management. The patient was also treated with diuretic therapy including IV Lasix and spironolactone due to lower extremity edema and ascites. The patient's overall edema had improved by the time of discharge with medical therapy. The patient was evaluated by the GI Service with recommendations for ongoing medical management and no acute intervention recommended currently. The patient was also noted with elevated creatinine with concern for acute kidney injury and hepatorenal syndrome. The patient was titrated on his diuretic regimen with overall stabilization of the creatinine in the 2 to 2.5 range. Current recommendations are for serial monitoring and surveillance on an outpatient basis. The patient did receive albumin infusions to assist with edema management with overall weight loss of approximately 13 pounds by the time of discharge. Overall, the patient did remain clinically stable during the hospital course, tolerating regular oral intake. I have examined the patient and discussed followup instructions, which the patient verbalizes understanding and in agreement. The patient overall clinically stable and ready for discharge on 08/26/2019. DISCHARGE MEDICATIONS: 1. Ergocalciferol 1.25 mg p.o. q.7 days. 2. Lactulose 20 g p.o. b.i.d. 3. Sodium bicarbonate 650 mg p.o. t.i.d. 4. Lasix 20 mg p.o. daily. 5. Spironolactone 100 mg p.o. b.i.d. FOLLOWUP: The patient may follow up with [facility] in the [place], [place] area within 7 days of discharge. The patient will follow up with Dr. Sandoval with Nephrology Service on 09/11/2019 at 11:00 a.m. The patient may follow up with Dr. Rosario with GI Service. CONDITION ON DISCHARGE: Fair. ACTIVITY: Ad-rimma. DIET: Heart healthy. CODE STATUS: Full. DISPOSITION: Home on 08/26/2019. TIME SPENT: Total time preparing and coordinating discharge, 32 minutes. Job ID: [id number]
== END 2019-08-26 12:33 | disposition home or self-care (01) | DRG 441 ==
LOC: ERS 11:05 → ERHOLD 12:43 → 2NO 15:30
PROVIDERS: ADMIT Internal Medicine; ATTEND Internal Medicine
DX: K72.00 Acute and subacute hepatic failure without coma (principal); K76.7 Hepatorenal syndrome; N17.9 Acute kidney failure, unspecified; E87.2 Acidosis; K76.6 Portal hypertension; J94.8 Other specified pleural conditions; K70.31 Alcoholic cirrhosis of liver with ascites; N18.3 Chronic kidney disease, stage 3 (moderate); D63.1 Anemia in chronic kidney disease; F10.10 Alcohol abuse, uncomplicated; E55.9 Vitamin D deficiency, unspecified; E66.01 Morbid (severe) obesity due to excess calories; Z68.30 Body mass index [BMI] 30.0-30.9, adult; Z79.899 Other long term (current) drug therapy
CPT/HCPCS: 36415; 70450; 71045; 80053; 80074; 80307; 81003; 81015; 82105; 82140; 82306; 82390; 82570; 82607; 82728; 82746; 83605; 83690; 84156; 84300; 84484; 84540; 85007; 85025; 85027; 85610; 87389; 93005; 93306; 93975; 94760; J0696; J1940; J3490; P9047

== ENCOUNTER 2021-05-11 05:37 | Inpatient (IN) | payer MEDICARE, SELFPAY ==
[2021-05-11 07:44] LABS: #Basophils 0.1 thou/uL (0.0-0.2); #Eosinphils 0.6 thou/uL (0.0-0.7); #Lymphocytes 1.1 thou/uL (1.20-3.40); #Monocytes 0.7 thou/uL (0.11-0.59); #Neutrophils 3.7 thou/uL (1.40-6.50); %Eosinophils 9.4 % (0.0-10.0); %Lymphocytes 17.4 % (21.0-51.0); %Monocytes 11.2 % (0.0-10.0); %Neutrophils 60.9 % (42.0-75.0); Hemoglobin 8.7 g/dL (14.0-18.0); Mean Corpuscular HGB CONC 33.1 g/dL (32.0-36.0); Mean Corpuscular Hemoglobin 35.2 pg (27.0-31.0); Mean Platelet Volume 7.7 fL (7.4-10.4); Platelet Count 147 thou/uL (130-400); RBC Distribution Width 15.9 % (11.5-14.5); Red Blood Cell (RBC) Count 2.48 mill/uL (4.70-6.10)
[2021-05-11 07:59] LABS: ALT (SGPT) 13 U/L (8-55); AST (SGOT) 29 U/L (5-34); Albumin 1.9 g/dL (3.4-4.8); Alkaline Phosphatase 156 U/L (40-110); Anion Gap 12 mmol/L (10-20); BUN (Urea Nitrogen) 53 mg/dL (8.4-25.7); Bilirubin, Total 1.3 mg/dL (0.2-1.2); Calc. Creatinine Clearance 0 mL/min (70-130); Calcium 7.3 mg/dL (7.8-10.44); Carbon Dioxide 16 mmol/L (23-31); Chloride 115 mmol/L (98-107); Globulin 3.9 g/dL (2.4-3.5); Glucose 120 mg/dL (80-115); Magnesium 2.2 mg/dL (1.6-2.6); Potassium 4.8 mmol/L (3.5-5.1); Protein, Total 5.8 g/dL (5.8-8.1); Sodium 138 mmol/L (136-145)
[2021-05-11 08:17] LABS: MDiff Complete? YES; Macrocytosis SLIGHT = 6-15 cells (100X) (0-5/hpf); Platelet Morphology Comment Appears Adequate; Polychromasia SLIGHT = 2-3 cells (100X) (0-2/hpf)
[2021-05-11] MEDS ORDERED: Magnesium 2 GM/50 ML BAG (IN WATER) ONE (08:42)
[2021-05-11] MEDS ORDERED: Ondansetron PF 4 MG/2 ML Vial IVP PRN (09:12)
[2021-05-11] MEDS ORDERED: Morphine 2 MG/ML VIAL SLOW IVP PRN (09:14)
[2021-05-11 10:55] LABS: SARS-CoV-2 NAA Rapid Test Not Detected (NotDetected)
[2021-05-11] MEDS ORDERED: Albumin 25% 25 GM/100 ML BOT IVPB SCH (12:00)
[2021-05-11 12:57] LABS: INR-International Normal Ratio 1.3; Prothrombin Time 15.9 sec (12.0-14.7)
[2021-05-11 12:58] LABS: PTT 30.4 sec (22.9-36.1)
[2021-05-11 13:46] VITALS: BMI 34.5
[2021-05-11] MEDS ORDERED: Sodium Bicarbonate 2.5 MEQ/5 ML VIAL ONE ×2 (14:00→15:19)
[2021-05-11] MEDS ORDERED: Lidocaine 1% PF 5 ML VIAL ONE ×2 (14:00→15:19)
[2021-05-11] MEDS: Albumin 25% 25 GM/100 ML BOT IVPB SCH ×2 (17:32→23:09)
[2021-05-11] MEDS ORDERED: FLU VACC QS2021-22(6MOS UP)/PF 60 MCG/0.5 ML SYRINGE IM ONE (18:00)
[2021-05-11 19:37] LABS: Bacteria/HPF None Seen HPF (None Seen); Bilirubin Negative (Negative); Blood, Urine 2+ (Negative); Clarity Clear (Clear); Glucose, Urine (Dipstick) Normal (Negative); Ketone, Urine Negative (Negative); Leukocyte Negative Leu/uL (Negative); Nitrite Negative (Negative); Protein, Urine (Dipstick) 100 mg/dL (Neg-Trace); Specific Gravity, Urine 1.013 (1.002-1.036); Squamous Epithelial 0-3 HPF (0-3); Urobilinogen Normal mg/dL (Less than 2); WBC/HPF 0-3 HPF (0-3); pH, Urine 6.5 (5.0-9.0)
[2021-05-11 19:38] LABS: Urine Culture Reflex No No
[2021-05-11 19:56] LABS: Creatinine, Urine 60.42 mg/dL (63-166)
[2021-05-11] MEDS ORDERED: Melatonin 3 MG TAB PO PRN (20:03)
[2021-05-11] MEDS: Morphine 4 MG/ML VIAL SLOW IVP PRN (21:12)
[2021-05-11] MEDS: Metoprolol Tartrate 25 MG TAB PO SCH (21:13)
[2021-05-12] MEDS: Albumin 25% 25 GM/100 ML BOT IVPB SCH ×2 (05:02→12:12)
[2021-05-12 05:49] LABS: #Eosinphils 0.5 thou/uL (0.0-0.7); #Monocytes 0.6 thou/uL (0.11-0.59); #Neutrophils 2.7 thou/uL (1.40-6.50); %Basophils 0.9 % (0.0-1.0); %Eosinophils 9.6 % (0.0-10.0); %Lymphocytes 20.3 % (21.0-51.0); %Monocytes 13.1 % (0.0-10.0); %Neutrophils 56.2 % (42.0-75.0); Hemoglobin 7.7 g/dL (14.0-18.0); Mean Corpuscular HGB CONC 32.7 g/dL (32.0-36.0); Mean Corpuscular Hemoglobin 35.3 pg (27.0-31.0); Mean Platelet Volume 7.5 fL (7.4-10.4); Platelet Count 122 thou/uL (130-400); RBC Distribution Width 15.6 % (11.5-14.5); Red Blood Cell (RBC) Count 2.19 mill/uL (4.70-6.10); White Blood Cell (WBC) Count 4.9 thou/uL (4.8-10.8)
[2021-05-12 06:06] LABS: Iron 51 ug/dL (65-175); Iron Binding Capacity, Total 123 mcg/dL (261-462)
[2021-05-12 06:14] LABS: ALT (SGPT) 11 U/L (8-55); AST (SGOT) 24 U/L (5-34); Alkaline Phosphatase 109 U/L (40-110); Anion Gap 9 mmol/L (10-20); BUN (Urea Nitrogen) 50 mg/dL (8.4-25.7); Bilirubin, Total 1.2 mg/dL (0.2-1.2); Calc. Creatinine Clearance 26 mL/min (70-130); Calcium 7.4 mg/dL (7.8-10.44); Carbon Dioxide 18 mmol/L (23-31); Chloride 115 mmol/L (98-107); Glucose 109 mg/dL (80-115); Potassium 4.6 mmol/L (3.5-5.1); Sodium 137 mmol/L (136-145)
[2021-05-12] MEDS: Spironolactone 100 MG TAB PO SCH (08:34)
[2021-05-12] MEDS: Metoprolol Tartrate 25 MG TAB PO SCH ×2 (08:34→21:08)
[2021-05-12] MEDS: Morphine 4 MG/ML VIAL SLOW IVP PRN (08:34)
[2021-05-12] MEDS ORDERED: Furosemide 40 MG/4 ML VIAL SLOW IVP SCH (09:00)
[2021-05-13 04:49] LABS: #Eosinphils 0.5 thou/uL (0.0-0.7); #Monocytes 0.6 thou/uL (0.11-0.59); #Neutrophils 2.7 thou/uL (1.40-6.50); %Basophils 0.9 % (0.0-1.0); %Eosinophils 10.2 % (0.0-10.0); %Lymphocytes 20.9 % (21.0-51.0); %Neutrophils 56.1 % (42.0-75.0); Hemoglobin 7.6 g/dL (14.0-18.0); Mean Corpuscular HGB CONC 32.7 g/dL (32.0-36.0); Mean Corpuscular Hemoglobin 35.2 pg (27.0-31.0); Mean Platelet Volume 7.5 fL (7.4-10.4); Platelet Count 131 thou/uL (130-400); RBC Distribution Width 15.6 % (11.5-14.5); Red Blood Cell (RBC) Count 2.15 mill/uL (4.70-6.10); White Blood Cell (WBC) Count 4.7 thou/uL (4.8-10.8)
[2021-05-13 05:14] LABS: ALT (SGPT) 9 U/L (8-55); AST (SGOT) 22 U/L (5-34); Albumin 2.2 g/dL (3.4-4.8); Alkaline Phosphatase 98 U/L (40-110); Anion Gap 10 mmol/L (10-20); BUN (Urea Nitrogen) 49 mg/dL (8.4-25.7); Bilirubin, Total 1.4 mg/dL (0.2-1.2); Calc. Creatinine Clearance 26 mL/min (70-130); Calcium 7.6 mg/dL (7.8-10.44); Carbon Dioxide 17 mmol/L (23-31); Chloride 116 mmol/L (98-107); Globulin 2.7 g/dL (2.4-3.5); Glucose 111 mg/dL (80-115); Protein, Total 4.9 g/dL (5.8-8.1); Sodium 138 mmol/L (136-145)
[2021-05-13] MEDS: Metoprolol Tartrate 25 MG TAB PO SCH ×2 (09:15→21:36)
[2021-05-13] MEDS: Spironolactone 100 MG TAB PO SCH (09:16)
[2021-05-13] MEDS: Albumin 25% 25 GM/100 ML BOT IVPB SCH ×3 (11:44→21:36)
[2021-05-13] MEDS ORDERED: Ergocalciferol 1.25 MG(50,000 UNITS) CAP PO SCH (13:00)
[2021-05-13] MEDS: Sodium Bicarbonate Tab 325 MG TAB PO SCH ×2 (14:16→21:36)
[2021-05-13] MEDS ORDERED: Melatonin 3 MG TAB PO SCH (21:03)
[2021-05-14] MEDS: Albumin 25% 25 GM/100 ML BOT IVPB SCH ×4 (04:32→23:20)
[2021-05-14] MEDS: Spironolactone 100 MG TAB PO SCH (09:23)
[2021-05-14 09:24] LABS: Albumin 2.9 g/dL (3.4-4.8); Anion Gap 9 mmol/L (10-20); BUN (Urea Nitrogen) 53 mg/dL (8.4-25.7); Calc. Creatinine Clearance 27 mL/min (70-130); Calcium 8.3 mg/dL (7.8-10.44); Carbon Dioxide 18 mmol/L (23-31); Chloride 115 mmol/L (98-107); Glucose 126 mg/dL (80-115); Phosphorus 4.6 mg/dL (2.3-4.7); Potassium 5.1 mmol/L (3.5-5.1); Sodium 137 mmol/L (136-145)
[2021-05-14] MEDS: Metoprolol Tartrate 25 MG TAB PO SCH ×2 (09:24→20:33)
[2021-05-14] MEDS: Sodium Bicarbonate Tab 325 MG TAB PO SCH ×3 (09:24→20:33)
[2021-05-14] MEDS ORDERED: Amlodipine 5 MG TAB PO SCH (10:00)
[2021-05-14] MEDS: Heparin 5,000 UNITS/ML VIAL SC SCH (20:42)
[2021-05-14] MEDS ORDERED: traMADol HCl 50 MG TAB PO SCH (21:15)
[2021-05-15] MEDS: Albumin 25% 25 GM/100 ML BOT IVPB SCH ×3 (05:51→19:21)
[2021-05-15 06:43] LABS: Hemoglobin 7.4 g/dL (14.0-18.0); Mean Corpuscular HGB CONC 33.2 g/dL (32.0-36.0); Mean Corpuscular Hemoglobin 36.1 pg (27.0-31.0); Mean Platelet Volume 7.3 fL (7.4-10.4); Platelet Count 96 thou/uL (130-400); RBC Distribution Width 15.4 % (11.5-14.5); Red Blood Cell (RBC) Count 2.05 mill/uL (4.70-6.10); White Blood Cell (WBC) Count 5.1 thou/uL (4.8-10.8)
[2021-05-15 07:01] LABS: ALT (SGPT) 7 U/L (8-55); AST (SGOT) 18 U/L (5-34); Albumin 3.3 g/dL (3.4-4.8); Alkaline Phosphatase 80 U/L (40-110); Anion Gap 14 mmol/L (10-20); BUN (Urea Nitrogen) 51 mg/dL (8.4-25.7); Bilirubin, Total 2.3 mg/dL (0.2-1.2); Calc. Creatinine Clearance 29 mL/min (70-130); Calcium 8.2 mg/dL (7.8-10.44); Carbon Dioxide 14 mmol/L (23-31); Chloride 114 mmol/L (98-107); Globulin 2.5 g/dL (2.4-3.5); Glucose 113 mg/dL (80-115); Potassium 4.9 mmol/L (3.5-5.1); Protein, Total 5.8 g/dL (5.8-8.1); Sodium 137 mmol/L (136-145)
[2021-05-15] MEDS: Amlodipine 5 MG TAB PO SCH (08:58)
[2021-05-15] MEDS: Metoprolol Tartrate 25 MG TAB PO SCH ×2 (09:00→20:13)
[2021-05-15] MEDS: Sodium Bicarbonate Tab 325 MG TAB PO SCH ×3 (09:04→20:13)
[2021-05-15 11:15] LABS: Iron 29 ug/dL (65-175); Iron Binding Capacity, Total 96 mcg/dL (261-462)
[2021-05-15] MEDS: Heparin 5,000 UNITS/ML VIAL SC SCH ×2 (14:09→20:13)
[2021-05-15] MEDS ORDERED: Acetaminophen 325 MG TAB PO PRN (23:26)
[2021-05-16] MEDS: Albumin 25% 25 GM/100 ML BOT IVPB SCH ×2 (06:00)
[2021-05-16 06:31] LABS: ALT (SGPT) 7 U/L (8-55); AST (SGOT) 16 U/L (5-34); Albumin 3.3 g/dL (3.4-4.8); Alkaline Phosphatase 73 U/L (40-110); Anion Gap 12 mmol/L (10-20); BUN (Urea Nitrogen) 57 mg/dL (8.4-25.7); Bilirubin, Total 2.3 mg/dL (0.2-1.2); Calc. Creatinine Clearance 28 mL/min (70-130); Carbon Dioxide 16 mmol/L (23-31); Chloride 116 mmol/L (98-107); Globulin 2.3 g/dL (2.4-3.5); Glucose 135 mg/dL (80-115); Potassium 4.7 mmol/L (3.5-5.1); Protein, Total 5.6 g/dL (5.8-8.1); Sodium 139 mmol/L (136-145)
[2021-05-16] MEDS: Heparin 5,000 UNITS/ML VIAL SC SCH ×2 (08:27→20:48)
[2021-05-16] MEDS: Amlodipine 5 MG TAB PO SCH (08:29)
[2021-05-16] MEDS: Sodium Bicarbonate Tab 325 MG TAB PO SCH ×3 (08:30→20:48)
[2021-05-16] MEDS: Metoprolol Tartrate 25 MG TAB PO SCH ×2 (08:31→20:48)
[2021-05-16] MEDS ORDERED: EPOETIN ALFA-EPBX (ESRD) 10,000 UNIT/ML VIAL SC SCH (14:00)
[2021-05-16 14:40] LABS: INR-International Normal Ratio 1.5; PTT 37.4 sec (22.9-36.1); Prothrombin Time 17.9 sec (12.0-14.7)
[2021-05-16] MEDS ORDERED: Lidocaine 1% PF 5 ML VIAL ONE (16:43)
[2021-05-16] MEDS ORDERED: Sodium Bicarbonate 2.5 MEQ/5 ML VIAL ONE (16:43)
[2021-05-17 06:11] LABS: Hemoglobin 7.1 g/dL (14.0-18.0); Mean Platelet Volume 8.3 fL (7.4-10.4); Platelet Count 115 thou/uL (130-400); RBC Distribution Width 15.6 % (11.5-14.5); Red Blood Cell (RBC) Count 2.03 mill/uL (4.70-6.10)
[2021-05-17 06:30] LABS: Anion Gap 14 mmol/L (10-20); BUN (Urea Nitrogen) 56 mg/dL (8.4-25.7); BUN/Creatinine Ratio 14.89; Calc. Creatinine Clearance 28 mL/min (70-130); Carbon Dioxide 16 mmol/L (23-31); Chloride 116 mmol/L (98-107); Glucose 101 mg/dL (80-115); Phosphorus 3.9 mg/dL (2.3-4.7); Potassium 4.7 mmol/L (3.5-5.1); Sodium 141 mmol/L (136-145)
[2021-05-17 06:31] LABS: #Eosinphils 0.2 thou/uL (0.0-0.7); #Lymphocytes 0.8 thou/uL (1.20-3.40); #Monocytes 0.6 thou/uL (0.11-0.59); #Neutrophils 3.3 thou/uL (1.40-6.50); %Basophils 0.9 % (0.0-1.0); %Eosinophils 4.7 % (0.0-10.0); %Lymphocytes 16.3 % (21.0-51.0); %Monocytes 12.6 % (0.0-10.0); %Neutrophils 65.6 % (42.0-75.0); MDiff Complete? YES; Macrocytosis SLIGHT = 6-15 cells (100X) (0-5/hpf); Platelet Morphology Comment Appears Decreased
[2021-05-17] MEDS ORDERED: Furosemide 40 MG TAB PO SCH (07:30)
[2021-05-17] MEDS ORDERED: Spironolactone 100 MG TAB PO SCH (08:00)
[2021-05-17] MEDS ORDERED: Spironolactone 25 MG TAB PO SCH (08:00)
[2021-05-17] MEDS: Sodium Bicarbonate Tab 325 MG TAB PO SCH ×3 (09:23→20:41)
[2021-05-17] MEDS: Metoprolol Tartrate 25 MG TAB PO SCH ×2 (09:24→20:41)
[2021-05-17] MEDS: Amlodipine 5 MG TAB PO SCH (09:24)
[2021-05-17] MEDS: Heparin 5,000 UNITS/ML VIAL SC SCH ×2 (09:25→20:42)
[2021-05-17] MEDS: Torsemide 10 MG TAB PO SCH (12:30)
[2021-05-17] MEDS: Ferrex 150 Plus (iron poly cmplx) PO SCH (12:56)
[2021-05-18 00:33] LABS: SARS-CoV-2 PCR by NAA Not Detected (NotDetected)
[2021-05-18 08:09] LABS: Hemoglobin 7.3 g/dL (14.0-18.0); Mean Corpuscular HGB CONC 32.4 g/dL (32.0-36.0); Mean Corpuscular Hemoglobin 35.5 pg (27.0-31.0); Mean Platelet Volume 7.8 fL (7.4-10.4); Platelet Count 136 thou/uL (130-400); RBC Distribution Width 15.4 % (11.5-14.5); Red Blood Cell (RBC) Count 2.05 mill/uL (4.70-6.10); White Blood Cell (WBC) Count 4.8 thou/uL (4.8-10.8)
[2021-05-18] MEDS: Amlodipine 5 MG TAB PO SCH (08:10)
[2021-05-18] MEDS: Heparin 5,000 UNITS/ML VIAL SC SCH (08:13)
[2021-05-18] MEDS: Metoprolol Tartrate 25 MG TAB PO SCH (08:15)
[2021-05-18 08:21] VITALS: TEMP 98.2
[2021-05-18 08:25] LABS: Anion Gap 14 mmol/L (10-20); BUN (Urea Nitrogen) 55 mg/dL (8.4-25.7); Calc. Creatinine Clearance 28 mL/min (70-130); Calcium 8.2 mg/dL (7.8-10.44); Carbon Dioxide 17 mmol/L (23-31); Chloride 113 mmol/L (98-107); Glucose 92 mg/dL (80-115); Phosphorus 4.3 mg/dL (2.3-4.7); Potassium 4.7 mmol/L (3.5-5.1); Sodium 139 mmol/L (136-145)
[2021-05-18] MEDS ORDERED: Sodium Bicarbonate 2.5 MEQ/5 ML VIAL ONE (12:40)
[2021-05-18] MEDS ORDERED: Lidocaine 1% PF 5 ML VIAL ONE (12:40)
[2021-05-18] MEDS: Sodium Bicarbonate Tab 325 MG TAB PO SCH ×2 (14:51→14:56)
[2021-05-18] MEDS: Ferrex 150 Plus (iron poly cmplx) PO SCH (14:56)
[2021-05-18] MEDS: Torsemide 10 MG TAB PO SCH (14:56)
[2021-05-18 16:16] VITALS: BP 130/68
[2021-05-20] MEDS ORDERED: Ergocalciferol 1.25 MG(50,000 UNITS) CAP PO SCH (09:00)
== END 2021-05-18 17:27 | disposition home or self-care (01) | DRG 432 ==
LOC: ERS 05:37 → ERHOLD 08:53 → 2NO 13:27 → T4-B 05-14 14:37
PROVIDERS: ADMIT Internal Medicine; ATTEND Internal Medicine
PROC: 0W9G3ZZ Drainage of Peritoneal Cavity, Percutaneous Approach (ICD-10-PCS; principal; 2021-05-16)
PROC: 0W9G3ZZ Drainage of Peritoneal Cavity, Percutaneous Approach (ICD-10-PCS; 2021-05-18)
DX: K70.31 Alcoholic cirrhosis of liver with ascites (principal); K76.7 Hepatorenal syndrome; N17.9 Acute kidney failure, unspecified; J94.8 Other specified pleural conditions; K76.6 Portal hypertension; D61.818 Other pancytopenia; J90 Pleural effusion, not elsewhere classified; E87.2 Acidosis; Z20.822 Contact with and (suspected) exposure to COVID-19; N18.30 Chronic kidney disease, stage 3 unspecified; D63.1 Anemia in chronic kidney disease; R00.8 Other abnormalities of heart beat; M25.579 Pain in unspecified ankle and joints of unspecified foot; E86.9 Volume depletion, unspecified; E55.9 Vitamin D deficiency, unspecified; E88.09 Other disorders of plasma-protein metabolism, not elsewhere classified; Z28.21 Immunization not carried out because of patient refusal; Z79.899 Other long term (current) drug therapy
CPT/HCPCS: 32555; 36415; 36416; 49083; 71045; 71250; 76705; 80053; 80069; 81001; 82042; 82140; 82306; 82570; 82728; 83540; 83550; 83735; 83880; 84156; 84157; 84300; 84484; 84540; 85014; 85018; 85025; 85027; 85610; 85730; 93005; 96365; J1644; J2270; J3475; P9047; Q5105; U0002; U0003; U0005

== ENCOUNTER 2021-06-10 07:37 | Inpatient (IN) | payer MEDICARE, SELFPAY ==
[2021-06-10 07:53] LABS: #Lymphocytes 0.4 thou/uL (1.20-3.40); #Monocytes 0.3 thou/uL (0.11-0.59); #Neutrophils 3.5 thou/uL (1.40-6.50); %Basophils 0.3 % (0.0-1.0); %Eosinophils 0.9 % (0.0-10.0); %Lymphocytes 8.3 % (21.0-51.0); %Monocytes 6.6 % (0.0-10.0); %Neutrophils 83.9 % (42.0-75.0); Hemoglobin 9.4 g/dL (14.0-18.0); Mean Corpuscular HGB CONC 32.4 g/dL (32.0-36.0); Mean Corpuscular Hemoglobin 34.5 pg (27.0-31.0); Mean Platelet Volume 8.6 fL (7.4-10.4); Platelet Count 153 thou/uL (130-400); RBC Distribution Width 15.7 % (11.5-14.5); Red Blood Cell (RBC) Count 2.73 mill/uL (4.70-6.10); White Blood Cell (WBC) Count 4.2 thou/uL (4.8-10.8)
[2021-06-10 08:09] LABS: ALT (SGPT) 16 U/L (8-55); AST (SGOT) 32 U/L (5-34); Albumin 2.9 g/dL (3.4-4.8); Alkaline Phosphatase 167 U/L (40-110); Anion Gap 14 mmol/L (10-20); BUN (Urea Nitrogen) 61 mg/dL (8.4-25.7); Bilirubin, Total 1.3 mg/dL (0.2-1.2); Calc. Creatinine Clearance 0 mL/min (70-130); Calcium 7.7 mg/dL (7.8-10.44); Carbon Dioxide 14 mmol/L (23-31); Chloride 117 mmol/L (98-107); Globulin 3.9 g/dL (2.4-3.5); Glucose 188 mg/dL (80-115); Potassium 4.8 mmol/L (3.5-5.1); Protein, Total 6.8 g/dL (5.8-8.1); Sodium 140 mmol/L (136-145)
[2021-06-10 08:12] LABS: INR-International Normal Ratio 1.3; Prothrombin Time 16.6 sec (12.0-14.7)
[2021-06-10 08:22] LABS: Actual Bicarbonate (HCO3a) 13.8 mEq/L (22-28); Analyzer IN Cardio ER; Base Excess (BEa) -11.7 mEq/L (-2.0 to +3.0); CO2 Tension 29.7 mmHg (35.0-45.0); Calcium, Ionized (arterial) 1.11 mmol/L (1.12-1.30); Carboxyhemoglobin (COHb) 0.3 gm% (0.0-3.0); Hemoglobin (Hb) 8.9 g/dL (14.0-18.0); O2 Tension (PaO2), arterial 122.1 mmHg (> 80.0); Potassium - ABG Lab 4.89 mmol/L (3.70-5.30); Puncture Site RRA; pH, Arterial 7.29 (7.35-7.45)
[2021-06-10 08:23] LABS: ALV-art Gradient 125.975 mmHg (0-20)
[2021-06-10 08:28] LABS: Acetaminophen Less than 6.0 mcg/mL (10.0-30.0); Alcohol Less than 10 mg/dL (Less than 10); Salicylate Less than 8.0 mg/dL (15.0-30.0)
[2021-06-10 09:01] LABS: Bacteria/HPF None Seen HPF (None Seen); Bilirubin Negative (Negative); Blood, Urine 2+ (Negative); Clarity Clear (Clear); Glucose, Urine (Dipstick) 50 mg/dL (Negative); Ketone, Urine Negative (Negative); Leukocyte Negative Leu/uL (Negative); Nitrite Negative (Negative); Protein, Urine (Dipstick) 300 mg/dL (Neg-Trace); Specific Gravity, Urine 1.018 (1.002-1.036); Squamous Epithelial None Seen HPF (0-3); Urobilinogen Normal mg/dL (Less than 2); WBC/HPF 0-3 HPF (0-3)
[2021-06-10 09:03] LABS: Amphetamine Not Detected (NotDetected); Barbiturates Screen Not Detected (NotDetected); Benzodiazepine Screen Not Detected (NotDetected); Cocaine Metabolite Screen Not Detected (NotDetected); Methadone Not Detected (NotDetected); Methamphetamine Not Detected (NotDetected); Opiate Screen Detected (NotDetected); Oxycodone Screen Not Detected (NotDetected); Phencyclidine (PCP) Not Detected (NotDetected); THC/Cannabinoid Screen Not Detected (NotDetected); Tricyclic Screen Not Detected (NotDetected)
[2021-06-10] MEDS ORDERED: Iopamidol-370 76% 500 ML 1 ML ONE (10:20)
[2021-06-10] MEDS ORDERED: Propofol 1,000 MG/100 ML VIAL IV ONE (10:20)
[2021-06-10] MEDS ORDERED: Ondansetron PF 4 MG/2 ML Vial IVP PRN (10:21)
[2021-06-10] MEDS ORDERED: Ondansetron ODT 4 MG TAB PO PRN (10:21)
[2021-06-10] MEDS ORDERED: Electrolyte Replacement Protocol 1 EACH FS ONE (10:21)
[2021-06-10] MEDS ORDERED: Sodium Chloride 0.9% 1,000 ML IV SCH (10:21)
[2021-06-10] MEDS ORDERED: Vancomycin 1.5 GRAM/300 ML BAG 1.5 GM in Premix Bag 1 BAG IVPB SCH (10:30)
[2021-06-10] MEDS ORDERED: Furosemide 20 MG/2 ML VIAL SLOW IVP SCH (10:30)
[2021-06-10] MEDS ORDERED: Ventilator Sedation Protocol 1 EACH FS ONE (10:49)
[2021-06-10] MEDS ORDERED: VANC IVPB PRN (10:54)
[2021-06-10] MEDS ORDERED: [UNRECOGNIZED DRUG - OTHER] IVPB PRN (10:54)
[2021-06-10] MEDS ORDERED: Fentanyl BOLUS 250 ML IVPB PRN (11:00)
[2021-06-10] MEDS ORDERED: Propofol BOLUS 1,000 MG/100 ML VIAL IV PRN (11:00)
[2021-06-10] MEDS: Propofol 1,000 MG/100 ML VIAL IV PRN ×2 (11:06→23:31)
[2021-06-10 12:39] LABS: SARS-CoV-2 PCR by NAA DETECTED (NotDetected)
[2021-06-10] MEDS ORDERED: FLU VACC QS2021-22(6MOS UP)/PF 60 MCG/0.5 ML SYRINGE IM ONE (12:45)
[2021-06-10] MEDS ORDERED: Prevnar 13-Val Conj/PF 0.5 ML SYRINGE IM ONE (12:45)
[2021-06-10] MEDS ORDERED: Meropenem 1 GM in Sodium Chloride 0.9% 100 ML IVPB SCH (13:00)
[2021-06-10] MEDS: Thiamine HCl 200 MG/2 ML VIAL SLOW IVP SCH (13:28)
[2021-06-10] MEDS: Sodium Bicarbonate Tab 325 MG TAB PER TUBE SCH ×2 (13:28→20:10)
[2021-06-10] MEDS: Furosemide 20 MG/2 ML VIAL SLOW IVP SCH (13:30)
[2021-06-10] MEDS: Lidocaine 1% (PF) 30 ML VIAL ONE ×3 (13:36→15:53)
[2021-06-10] MEDS: Lidocaine 2% 20 ml MDV SC SCH ×2 (13:37→13:57)
[2021-06-10] MEDS ORDERED: Fentanyl 100 MCG/2 ML VIAL ONE (14:41)
[2021-06-10] MEDS ORDERED: Fentanyl 100 MCG/2 ML VIAL SLOW IVP SCH (15:30)
[2021-06-10 16:33] LABS: RBC Count-Automated (BF) 4742 /cu.mm; WBC/Nucleated-Auto (BF) 171 /cu.mm
[2021-06-10 16:34] LABS: BF Color Yellow; Body Fluid Source Pleural Fluid; Clarity Hazy (Clear); Tube # EDTA
[2021-06-10 16:35] LABS: Pleural Fluid, Protein 1.6 g/dL
[2021-06-10 16:55] LABS: BF Segmented Neutrophils 6 %; Cell Count Non Hematic 31 %; Lymphocytes 63 %
[2021-06-10] MEDS: Sodium Bicarbonate 150 MEQ in Dextrose 5% in Water 1,000 ML IV SCH (20:09)
[2021-06-10] MEDS: Famotidine/PF 20 mg/2ml Vial SLOW IVP SCH (20:10)
[2021-06-10] MEDS: Rifaximin 550 MG TAB PO SCH (20:10)
[2021-06-10] MEDS: Meropenem 500 MG in Sodium Chloride 0.9% 100 ML IVPB SCH (20:10)
[2021-06-11 03:42] LABS: #Basophils 0.1 thou/uL (0.0-0.2); #Eosinphils 0.5 thou/uL (0.0-0.7); #Lymphocytes 1.1 thou/uL (1.20-3.40); #Monocytes 0.6 thou/uL (0.11-0.59); #Neutrophils 2.6 thou/uL (1.40-6.50); %Basophils 1.3 % (0.0-1.0); %Eosinophils 9.5 % (0.0-10.0); %Lymphocytes 23.2 % (21.0-51.0); %Monocytes 11.4 % (0.0-10.0); %Neutrophils 54.6 % (42.0-75.0); Hemoglobin 8.4 g/dL (14.0-18.0); Mean Corpuscular HGB CONC 34.1 g/dL (32.0-36.0); Mean Corpuscular Hemoglobin 36.2 pg (27.0-31.0); Mean Platelet Volume 8.7 fL (7.4-10.4); Platelet Count 111 thou/uL (130-400); RBC Distribution Width 15.7 % (11.5-14.5); Red Blood Cell (RBC) Count 2.31 mill/uL (4.70-6.10); White Blood Cell (WBC) Count 4.8 thou/uL (4.8-10.8)
[2021-06-11 03:49] LABS: Hemoglobin A1c 4.5 % (4.0-6.0)
[2021-06-11 03:52] LABS: INR-International Normal Ratio 1.4; Prothrombin Time 17.6 sec (12.0-14.7)
[2021-06-11 03:53] LABS: PTT 31.4 sec (22.9-36.1)
[2021-06-11 04:16] LABS: ALT (SGPT) 13 U/L (8-55); AST (SGOT) 25 U/L (5-34); Alkaline Phosphatase 102 U/L (40-110); Anion Gap 13 mmol/L (10-20); BUN (Urea Nitrogen) 55 mg/dL (8.4-25.7); Calc. Creatinine Clearance 25 mL/min (70-130); Calcium 7.3 mg/dL (7.8-10.44); Carbon Dioxide 15 mmol/L (23-31); Chloride 120 mmol/L (98-107); Glucose 112 mg/dL (80-115); Magnesium 2.3 mg/dL (1.6-2.6); Phosphorus 4.9 mg/dL (2.3-4.7); Potassium 3.9 mmol/L (3.5-5.1); Sodium 144 mmol/L (136-145)
[2021-06-11] MEDS: Lorazepam 2 MG/ML VIAL SLOW IVP PRN ×3 (04:58→22:42)
[2021-06-11] MEDS: Propofol 1,000 MG/100 ML VIAL IV PRN ×4 (04:58→21:07)
[2021-06-11] MEDS: Furosemide 20 MG/2 ML VIAL SLOW IVP SCH (05:42)
[2021-06-11] MEDS: Sodium Bicarbonate 150 MEQ in Dextrose 5% in Water 1,000 ML IV SCH (07:49)
[2021-06-11] MEDS: Sodium Bicarbonate Tab 325 MG TAB PER TUBE SCH (07:50)
[2021-06-11] MEDS: Multivit, Therapeutic 1 TAB PO SCH (07:50)
[2021-06-11] MEDS: Folic Acid 1 MG TAB PO SCH (07:50)
[2021-06-11] MEDS: Rifaximin 550 MG TAB PO SCH ×2 (07:50→21:09)
[2021-06-11 08:49] LABS: Actual Bicarbonate (HCO3a) 17.4 mEq/L (22-28); Base Excess (BEa) -4.4 mEq/L (-2.0 to +3.0); Calcium, Ionized (arterial) 1.09 mmol/L (1.12-1.30); Hemoglobin (Hb) 7.9 g/dL (14.0-18.0); O2 Tension (PaO2), arterial 169.2 mmHg (> 80.0); Potassium - ABG Lab 3.48 mmol/L (3.70-5.30); pH, Arterial 7.53 (7.35-7.45)
[2021-06-11 08:58] LABS: CO2 Tension 21.6 mmHg (35.0-45.0); Puncture Site RRA
[2021-06-11] MEDS ORDERED: Pantoprazole 40 MG VIAL IVP SCH (09:00)
[2021-06-11] MEDS: Meropenem 500 MG in Sodium Chloride 0.9% 100 ML IVPB SCH ×2 (09:20→21:08)
[2021-06-11] MEDS: Thiamine HCl 200 MG/2 ML VIAL SLOW IVP SCH (11:37)
[2021-06-11] MEDS: Albumin 25% 25 GM/100 ML BOT IVPB SCH ×3 (11:39→23:55)
[2021-06-11] MEDS: Famotidine/PF 20 mg/2ml Vial SLOW IVP SCH (21:07)
[2021-06-11] MEDS: fentaNYL Citrate-0.9 % NaCl/PF 100 ML IV SCH (21:50)
[2021-06-12] MEDS: Lorazepam 2 MG/ML VIAL SLOW IVP PRN (04:56)
[2021-06-12] MEDS: Albumin 25% 25 GM/100 ML BOT IVPB SCH ×3 (05:00→22:22)
[2021-06-12] MEDS ORDERED: Vancomycin 1.5 GRAM/300 ML BAG 1.5 GM in Premix Bag 1 BAG IVPB SCH (07:30)
[2021-06-12 07:39] LABS: #Basophils 0.1 thou/uL (0.0-0.2); #Eosinphils 0.7 thou/uL (0.0-0.7); #Lymphocytes 0.9 thou/uL (1.20-3.40); #Monocytes 0.8 thou/uL (0.11-0.59); #Neutrophils 3.1 thou/uL (1.40-6.50); %Eosinophils 13.1 % (0.0-10.0); %Monocytes 14.2 % (0.0-10.0); %Neutrophils 55.7 % (42.0-75.0); Hemoglobin 9.8 g/dL (14.0-18.0); Mean Corpuscular HGB CONC 32.1 g/dL (32.0-36.0); Mean Corpuscular Hemoglobin 34.7 pg (27.0-31.0); Mean Platelet Volume 9.1 fL (7.4-10.4); Platelet Count 107 thou/uL (130-400); RBC Distribution Width 15.3 % (11.5-14.5); Red Blood Cell (RBC) Count 2.81 mill/uL (4.70-6.10); White Blood Cell (WBC) Count 5.6 thou/uL (4.8-10.8)
[2021-06-12 07:52] LABS: Actual Bicarbonate (HCO3a) 16.3 mEq/L (22-28); Calcium, Ionized (arterial) 1.14 mmol/L (1.12-1.30); Carboxyhemoglobin (COHb) 0.2 gm% (0.0-3.0); Hemoglobin (Hb) 8.5 g/dL (14.0-18.0); O2 Tension (PaO2), arterial 174.8 mmHg (> 80.0); Potassium - ABG Lab 4.04 mmol/L (3.70-5.30); pH, Arterial 7.43 (7.35-7.45)
[2021-06-12 08:00] LABS: Puncture Site RRA
[2021-06-12] MEDS: Heparin 5,000 UNITS/ML VIAL SC SCH ×2 (10:05→20:56)
[2021-06-12] MEDS: Meropenem 500 MG in Sodium Chloride 0.9% 100 ML IVPB SCH ×2 (10:08→21:34)
[2021-06-12 11:12] LABS: Vancomycin, Random 11.7 ug/mL (See Comment)
[2021-06-12 11:17] LABS: ALT (SGPT) 9 U/L (8-55); AST (SGOT) 21 U/L (5-34); Albumin 2.7 g/dL (3.4-4.8); Alkaline Phosphatase 89 U/L (40-110); BUN (Urea Nitrogen) 58 mg/dL (8.4-25.7); Bilirubin, Total 1.7 mg/dL (0.2-1.2); Calc. Creatinine Clearance 24 mL/min (70-130); Calcium 7.8 mg/dL (7.8-10.44); Carbon Dioxide 17 mmol/L (23-31); Chloride 118 mmol/L (98-107); Globulin 2.7 g/dL (2.4-3.5); Glucose 98 mg/dL (80-115); Magnesium 2.4 mg/dL (1.6-2.6); Phosphorus 5.7 mg/dL (2.3-4.7); Potassium 4.5 mmol/L (3.5-5.1); Protein, Total 5.4 g/dL (5.8-8.1); Sodium 143 mmol/L (136-145)
[2021-06-12] MEDS ORDERED: Vancomycin HCl 750 MG in Sodium Chloride 0.9% 250 ML 250 ML IVPB SCH (11:45)
[2021-06-12] MEDS: Multivit, Therapeutic 1 TAB PO SCH (13:36)
[2021-06-12] MEDS: Thiamine HCl 200 MG/2 ML VIAL SLOW IVP SCH (13:36)
[2021-06-12] MEDS: Folic Acid 1 MG TAB PO SCH (13:36)
[2021-06-12] MEDS: Rifaximin 550 MG TAB PO SCH ×2 (13:36→21:15)
[2021-06-12] MEDS ORDERED: Sodium Bicarbonate 150 MEQ in Dextrose 5% in Water 1,000 ML IV SCH (14:00)
[2021-06-12 18:57] LABS: Anion Gap 13 mmol/L (10-20)
[2021-06-12] MEDS: Famotidine/PF 20 mg/2ml Vial SLOW IVP SCH (20:53)
[2021-06-13] MEDS: fentaNYL Citrate-0.9 % NaCl/PF 100 ML IV SCH (00:03)
[2021-06-13 03:44] LABS: ALT (SGPT) 9 U/L (8-55); AST (SGOT) 24 U/L (5-34); Albumin 2.9 g/dL (3.4-4.8); Alkaline Phosphatase 75 U/L (40-110); Anion Gap 15 mmol/L (10-20); BUN (Urea Nitrogen) 60 mg/dL (8.4-25.7); Bilirubin, Total 1.9 mg/dL (0.2-1.2); Calc. Creatinine Clearance 23 mL/min (70-130); Calcium 7.8 mg/dL (7.8-10.44); Carbon Dioxide 16 mmol/L (23-31); Chloride 120 mmol/L (98-107); Globulin 2.6 g/dL (2.4-3.5); Glucose 87 mg/dL (80-115); Magnesium 2.3 mg/dL (1.6-2.6); Phosphorus 5.9 mg/dL (2.3-4.7); Potassium 4.5 mmol/L (3.5-5.1); Protein, Total 5.5 g/dL (5.8-8.1); Sodium 146 mmol/L (136-145)
[2021-06-13 03:49] LABS: INR-International Normal Ratio 1.5; Prothrombin Time 18.2 sec (12.0-14.7)
[2021-06-13 03:54] LABS: #Basophils 0.1 thou/uL (0.0-0.2); #Eosinphils 0.6 thou/uL (0.0-0.7); #Lymphocytes 0.9 thou/uL (1.20-3.40); #Monocytes 0.7 thou/uL (0.11-0.59); #Neutrophils 3.5 thou/uL (1.40-6.50); %Basophils 1.1 % (0.0-1.0); %Lymphocytes 15.4 % (21.0-51.0); %Monocytes 12.1 % (0.0-10.0); %Neutrophils 61.4 % (42.0-75.0); Hemoglobin 7.8 g/dL (14.0-18.0); Mean Corpuscular HGB CONC 33.5 g/dL (32.0-36.0); Mean Corpuscular Hemoglobin 35.5 pg (27.0-31.0); Mean Platelet Volume 8.8 fL (7.4-10.4); Platelet Count 99 thou/uL (130-400); RBC Distribution Width 14.9 % (11.5-14.5); Red Blood Cell (RBC) Count 2.19 mill/uL (4.70-6.10); White Blood Cell (WBC) Count 5.7 thou/uL (4.8-10.8)
[2021-06-13] MEDS: Levothyroxine 100 MCG SDV IVP SCH (05:55)
[2021-06-13] MEDS: Albumin 25% 25 GM/100 ML BOT IVPB SCH ×3 (05:55→20:27)
[2021-06-13] MEDS ORDERED: Furosemide 40 MG/4 ML VIAL SLOW IVP SCH (06:30)
[2021-06-13 07:54] LABS: Actual Bicarbonate (HCO3a) 18.4 mEq/L (22-28); CO2 Tension 31.8 mmHg (35.0-45.0); Calcium, Ionized (arterial) 1.15 mmol/L (1.12-1.30); Carboxyhemoglobin (COHb) 0.6 gm% (0.0-3.0); Hemoglobin (Hb) 7.9 g/dL (14.0-18.0); O2 Tension (PaO2), arterial 159.5 mmHg (> 80.0); pH, Arterial 7.38 (7.35-7.45)
[2021-06-13] MEDS: Dexmedetomidine In 0.9 % NaCl 100 ML IVPB SCH ×2 (09:49→21:10)
[2021-06-13] MEDS: Folic Acid 1 MG TAB PO SCH (09:49)
[2021-06-13] MEDS: Rifaximin 550 MG TAB PO SCH ×2 (09:49→20:27)
[2021-06-13] MEDS: Heparin 5,000 UNITS/ML VIAL SC SCH ×2 (09:50→21:10)
[2021-06-13] MEDS: Multivit, Therapeutic 1 TAB PO SCH (09:50)
[2021-06-13] MEDS: Meropenem 500 MG in Sodium Chloride 0.9% 100 ML IVPB SCH ×2 (09:51→20:26)
[2021-06-13] MEDS: Lorazepam 2 MG/ML VIAL SLOW IVP PRN (09:53)
[2021-06-13] MEDS: Thiamine 100 MG TAB PO SCH (12:30)
[2021-06-13] MEDS ORDERED: Sodium Bicarbonate 100 MEQ in Dextrose 5% in Water 1,000 ML IV SCH (12:30)
[2021-06-13 13:51] LABS: Vancomycin, Random 15.7 ug/mL (See Comment)
[2021-06-13] MEDS ORDERED: Lactulose 10 GM/15 ML Oral Solution PR SCH (14:30)
[2021-06-13] MEDS: Midodrine HCl 5 MG TAB PO SCH ×2 (14:54→20:27)
[2021-06-13] MEDS: Octreotide Acetate 1,250 MCG in Sodium Chloride 0.9% 250 ML 250 ML IVPB SCH (15:14)
[2021-06-13 16:29] LABS: Hemoglobin 7.2 g/dL (14.0-18.0); Mean Corpuscular HGB CONC 33.5 g/dL (32.0-36.0); Mean Corpuscular Hemoglobin 35.6 pg (27.0-31.0); Mean Platelet Volume 9.3 fL (7.4-10.4); Platelet Count 78 thou/uL (130-400); RBC Distribution Width 14.6 % (11.5-14.5); Red Blood Cell (RBC) Count 2.03 mill/uL (4.70-6.10); White Blood Cell (WBC) Count 4.6 thou/uL (4.8-10.8)
[2021-06-13] MEDS ORDERED: Vancomycin HCl 500 MG in Sodium Chloride 0.9% 100 ML IVPB SCH (18:30)
[2021-06-13] MEDS: Famotidine/PF 20 mg/2ml Vial SLOW IVP SCH (20:27)
[2021-06-14] MEDS: Lorazepam 2 MG/ML VIAL SLOW IVP PRN ×2 (03:52→20:58)
[2021-06-14 04:45] LABS: #Eosinphils 0.5 thou/uL (0.0-0.7); #Lymphocytes 0.7 thou/uL (1.20-3.40); #Monocytes 0.4 thou/uL (0.11-0.59); #Neutrophils 2.3 thou/uL (1.40-6.50); %Basophils 0.8 % (0.0-1.0); %Eosinophils 11.8 % (0.0-10.0); %Lymphocytes 18.7 % (21.0-51.0); %Monocytes 9.7 % (0.0-10.0); %Neutrophils 59.1 % (42.0-75.0); Hemoglobin 7.5 g/dL (14.0-18.0); Mean Corpuscular HGB CONC 33.8 g/dL (32.0-36.0); Mean Corpuscular Hemoglobin 35.4 pg (27.0-31.0); Mean Platelet Volume 9.3 fL (7.4-10.4); Platelet Count 74 thou/uL (130-400); RBC Distribution Width 14.4 % (11.5-14.5); Red Blood Cell (RBC) Count 2.11 mill/uL (4.70-6.10); White Blood Cell (WBC) Count 3.8 thou/uL (4.8-10.8)
[2021-06-14 04:57] LABS: ALT (SGPT) 7 U/L (8-55); AST (SGOT) 22 U/L (5-34); Albumin 3.1 g/dL (3.4-4.8); Alkaline Phosphatase 66 U/L (40-110); Anion Gap 16 mmol/L (10-20); BUN (Urea Nitrogen) 63 mg/dL (8.4-25.7); Bilirubin, Total 2.5 mg/dL (0.2-1.2); Calc. Creatinine Clearance 22 mL/min (70-130); Calcium 8.1 mg/dL (7.8-10.44); Carbon Dioxide 15 mmol/L (23-31); Chloride 120 mmol/L (98-107); Globulin 2.4 g/dL (2.4-3.5); Glucose 88 mg/dL (80-115); Magnesium 2.3 mg/dL (1.6-2.6); Potassium 4.7 mmol/L (3.5-5.1); Protein, Total 5.5 g/dL (5.8-8.1); Sodium 146 mmol/L (136-145)
[2021-06-14] MEDS: Albumin 25% 25 GM/100 ML BOT IVPB SCH ×4 (05:15→23:07)
[2021-06-14] MEDS: Levothyroxine 100 MCG SDV IVP SCH (05:15)
[2021-06-14 08:11] LABS: Actual Bicarbonate (HCO3a) 15.9 mEq/L (22-28); Base Excess (BEa) -7.7 mEq/L (-2.0 to +3.0); Calcium, Ionized (arterial) 1.15 mmol/L (1.12-1.30); Carboxyhemoglobin (COHb) 0.8 gm% (0.0-3.0); Hemoglobin (Hb) 7.6 g/dL (14.0-18.0); O2 Tension (PaO2), arterial 118.9 mmHg (> 80.0); Potassium - ABG Lab 4.75 mmol/L (3.70-5.30); pH, Arterial 7.42 (7.35-7.45)
[2021-06-14 08:14] LABS: CO2 Tension 25.3 mmHg (35.0-45.0)
[2021-06-14 08:15] LABS: ALV-art Gradient 134.675 mmHg (0-20); Puncture Site RRA
[2021-06-14] MEDS: Midodrine HCl 5 MG TAB PO SCH ×3 (08:57→21:55)
[2021-06-14] MEDS: Multivit, Therapeutic 1 TAB PO SCH (08:58)
[2021-06-14] MEDS: Folic Acid 1 MG TAB PO SCH (08:58)
[2021-06-14] MEDS: Rifaximin 550 MG TAB PO SCH ×2 (08:58→21:55)
[2021-06-14] MEDS: Meropenem 500 MG in Sodium Chloride 0.9% 100 ML IVPB SCH ×2 (08:59→21:54)
[2021-06-14] MEDS ORDERED: Sodium Bicarbonate Tab 325 MG TAB PER TUBE PRN (09:45)
[2021-06-14] MEDS ORDERED: Pancrelipase DR 12,000 1 CAP FS PRN (09:45)
[2021-06-14] MEDS ORDERED: Albumin 25% 25 GM/100 ML BOT IVPB SCH (10:45)
[2021-06-14] MEDS: Thiamine 100 MG TAB PO SCH (11:37)
[2021-06-14] MEDS: Dexmedetomidine In 0.9 % NaCl 100 ML IVPB SCH (11:39)
[2021-06-14 13:27] LABS: Vancomycin, Random 14.9 ug/mL (See Comment)
[2021-06-14] MEDS ORDERED: Vancomycin HCl 750 MG in Sodium Chloride 0.9% 250 ML 250 ML IVPB SCH (14:00)
[2021-06-14] MEDS: Sodium Bicarbonate Tab 325 MG TAB PER TUBE SCH ×2 (14:40→21:55)
[2021-06-14 16:13] LABS: Bacteria/HPF None Seen HPF (None Seen); Bilirubin Negative (Negative); Blood, Urine 3+ (Negative); Clarity Clear (Clear); Glucose, Urine (Dipstick) Normal (Negative); Ketone, Urine Negative (Negative); Leukocyte Negative Leu/uL (Negative); Nitrite Negative (Negative); Protein, Urine (Dipstick) 300 mg/dL (Neg-Trace); RBC/HPF 21-50 HPF (0-3); Specific Gravity, Urine 1.018 (1.002-1.036); Squamous Epithelial None Seen HPF (0-3); Urobilinogen Normal mg/dL (Less than 2)
[2021-06-14 16:29] LABS: Sodium, Urine 62 mmol/L (Not Available); Urea Nitrogen, Random Urine 538 mg/dl
[2021-06-14 16:30] LABS: Creatinine, Urine 89.68 mg/dL (63-166)
[2021-06-14] MEDS: Morphine 4 MG/ML VIAL SLOW IVP PRN (21:54)
[2021-06-14] MEDS: Famotidine/PF 20 mg/2ml Vial SLOW IVP SCH (21:55)
[2021-06-14] MEDS: hydrALAZINE 20 MG/ML VIAL SLOW IVP PRN (23:07)
[2021-06-15] MEDS: Dexmedetomidine In 0.9 % NaCl 100 ML IVPB SCH ×3 (00:36→21:34)
[2021-06-15] MEDS: Octreotide Acetate 1,250 MCG in Sodium Chloride 0.9% 250 ML 250 ML IVPB SCH (00:36)
[2021-06-15] MEDS: Albumin 25% 25 GM/100 ML BOT IVPB SCH ×2 (05:12→11:18)
[2021-06-15] MEDS: Levothyroxine 100 MCG SDV IVP SCH (05:12)
[2021-06-15 05:17] LABS: ALT (SGPT) 7 U/L (8-55); AST (SGOT) 21 U/L (5-34); Albumin 3.7 g/dL (3.4-4.8); Alkaline Phosphatase 62 U/L (40-110); Anion Gap 14 mmol/L (10-20); BUN (Urea Nitrogen) 69 mg/dL (8.4-25.7); Bilirubin, Total 2.3 mg/dL (0.2-1.2); Calc. Creatinine Clearance 22 mL/min (70-130); Calcium 8.5 mg/dL (7.8-10.44); Carbon Dioxide 18 mmol/L (23-31); Chloride 120 mmol/L (98-107); Globulin 2.1 g/dL (2.4-3.5); Glucose 129 mg/dL (80-115); Magnesium 2.3 mg/dL (1.6-2.6); Potassium 4.5 mmol/L (3.5-5.1); Protein, Total 5.8 g/dL (5.8-8.1); Sodium 147 mmol/L (136-145)
[2021-06-15 05:41] LABS: #Eosinphils 0.4 thou/uL (0.0-0.7); #Lymphocytes 0.5 thou/uL (1.20-3.40); #Monocytes 0.3 thou/uL (0.11-0.59); #Neutrophils 1.8 thou/uL (1.40-6.50); %Basophils 0.4 % (0.0-1.0); %Eosinophils 12.9 % (0.0-10.0); %Lymphocytes 16.2 % (21.0-51.0); %Monocytes 11.4 % (0.0-10.0); %Neutrophils 59.1 % (42.0-75.0); Hemoglobin 7.3 g/dL (14.0-18.0); Mean Corpuscular HGB CONC 33.9 g/dL (32.0-36.0); Mean Corpuscular Hemoglobin 35.4 pg (27.0-31.0); Mean Platelet Volume 8.6 fL (7.4-10.4); Platelet Count 73 thou/uL (130-400); RBC Distribution Width 14.2 % (11.5-14.5); Red Blood Cell (RBC) Count 2.06 mill/uL (4.70-6.10)
[2021-06-15 07:07] LABS: Actual Bicarbonate (HCO3a) 17.5 mEq/L (22-28); Base Excess (BEa) -5.8 mEq/L (-2.0 to +3.0); Calcium, Ionized (arterial) 1.15 mmol/L (1.12-1.30); O2 Tension (PaO2), arterial 121.9 mmHg (> 80.0); pH, Arterial 7.45 (7.35-7.45)
[2021-06-15 07:23] LABS: CO2 Tension 25.8 mmHg (35.0-45.0); Puncture Site RRA
[2021-06-15] MEDS: Meropenem 500 MG in Sodium Chloride 0.9% 100 ML IVPB SCH ×2 (08:29→21:34)
[2021-06-15] MEDS: Multivit, Therapeutic 1 TAB PO SCH (08:30)
[2021-06-15] MEDS: Sodium Bicarbonate Tab 325 MG TAB PER TUBE SCH ×3 (08:30→21:35)
[2021-06-15] MEDS: Midodrine HCl 5 MG TAB PO SCH ×3 (08:30→21:36)
[2021-06-15] MEDS: Rifaximin 550 MG TAB PO SCH ×2 (08:31→21:35)
[2021-06-15] MEDS: Folic Acid 1 MG TAB PO SCH (08:31)
[2021-06-15] MEDS: Thiamine 100 MG TAB PO SCH (11:18)
[2021-06-15 13:38] LABS: Vancomycin, Random 19.8 ug/mL (See Comment)
[2021-06-15] MEDS ORDERED: Vancomycin HCl 500 MG in Sodium Chloride 0.9% 100 ML IVPB SCH (14:30)
[2021-06-15] MEDS: Lorazepam 2 MG/ML VIAL SLOW IVP PRN ×2 (17:25→21:35)
[2021-06-15] MEDS: Morphine 4 MG/ML VIAL SLOW IVP PRN (20:22)
[2021-06-15] MEDS: Famotidine/PF 20 mg/2ml Vial SLOW IVP SCH (21:35)
[2021-06-16] MEDS: Octreotide Acetate 1,250 MCG in Sodium Chloride 0.9% 250 ML 250 ML IVPB SCH (00:33)
[2021-06-16 04:33] LABS: #Eosinphils 0.4 thou/uL (0.0-0.7); #Lymphocytes 0.6 thou/uL (1.20-3.40); #Monocytes 0.4 thou/uL (0.11-0.59); #Neutrophils 1.9 thou/uL (1.40-6.50); %Basophils 0.2 % (0.0-1.0); %Eosinophils 13.5 % (0.0-10.0); %Lymphocytes 18.6 % (21.0-51.0); %Monocytes 11.1 % (0.0-10.0); %Neutrophils 56.6 % (42.0-75.0); Hemoglobin 7.2 g/dL (14.0-18.0); Mean Corpuscular HGB CONC 33.4 g/dL (32.0-36.0); Mean Corpuscular Hemoglobin 34.9 pg (27.0-31.0); Platelet Count 75 thou/uL (130-400); RBC Distribution Width 14.1 % (11.5-14.5); Red Blood Cell (RBC) Count 2.05 mill/uL (4.70-6.10); White Blood Cell (WBC) Count 3.3 thou/uL (4.8-10.8)
[2021-06-16 04:48] LABS: ALT (SGPT) 8 U/L (8-55); AST (SGOT) 19 U/L (5-34); Albumin 3.5 g/dL (3.4-4.8); Alkaline Phosphatase 58 U/L (40-110); Anion Gap 14 mmol/L (10-20); BUN (Urea Nitrogen) 79 mg/dL (8.4-25.7); Bilirubin, Total 1.8 mg/dL (0.2-1.2); Calc. Creatinine Clearance 23 mL/min (70-130); Calcium 8.2 mg/dL (7.8-10.44); Carbon Dioxide 17 mmol/L (23-31); Chloride 122 mmol/L (98-107); Globulin 2.2 g/dL (2.4-3.5); Glucose 116 mg/dL (80-115); Magnesium 2.4 mg/dL (1.6-2.6); Potassium 4.3 mmol/L (3.5-5.1); Protein, Total 5.7 g/dL (5.8-8.1); Sodium 149 mmol/L (136-145)
[2021-06-16] MEDS: Levothyroxine Sodium 75 MCG TAB PO SCH (06:02)
[2021-06-16] MEDS: Albumin 25% 25 GM/100 ML BOT IVPB SCH ×3 (09:15→20:39)
[2021-06-16] MEDS: Meropenem 500 MG in Sodium Chloride 0.9% 100 ML IVPB SCH ×2 (09:17→20:39)
[2021-06-16] MEDS: Sodium Bicarbonate Tab 325 MG TAB PER TUBE SCH ×3 (09:18→20:39)
[2021-06-16] MEDS: Multivit, Therapeutic 1 TAB PO SCH (09:18)
[2021-06-16] MEDS: Folic Acid 1 MG TAB PO SCH (09:19)
[2021-06-16] MEDS: Rifaximin 550 MG TAB PO SCH ×2 (09:19→20:40)
[2021-06-16] MEDS: Midodrine HCl 5 MG TAB PO SCH ×3 (09:28→20:40)
[2021-06-16] MEDS: Dexmedetomidine In 0.9 % NaCl 100 ML IVPB SCH (10:22)
[2021-06-16] MEDS: Thiamine 100 MG TAB PO SCH (12:24)
[2021-06-16] MEDS: Lorazepam 2 MG/ML VIAL SLOW IVP PRN ×2 (12:38→18:57)
[2021-06-16 14:50] LABS: Vancomycin, Random 20.5 ug/mL (See Comment)
[2021-06-16] MEDS: Morphine 4 MG/ML VIAL SLOW IVP PRN (19:24)
[2021-06-16] MEDS: Famotidine/PF 20 mg/2ml Vial SLOW IVP SCH (20:40)
[2021-06-17] MEDS: Octreotide Acetate 1,250 MCG in Sodium Chloride 0.9% 250 ML 250 ML IVPB SCH (02:07)
[2021-06-17] MEDS: Lorazepam 2 MG/ML VIAL SLOW IVP PRN ×2 (02:07→22:20)
[2021-06-17] MEDS: Albumin 25% 25 GM/100 ML BOT IVPB SCH ×2 (02:07→10:26)
[2021-06-17 04:45] LABS: Iron 17 ug/dL (65-175); Iron Binding Capacity, Total 75 mcg/dL (261-462)
[2021-06-17 04:48] LABS: ALT (SGPT) Less than 7 U/L (8-55); AST (SGOT) 19 U/L (5-34); Albumin 3.9 g/dL (3.4-4.8); Alkaline Phosphatase 58 U/L (40-110); Anion Gap 14 mmol/L (10-20); BUN (Urea Nitrogen) 78 mg/dL (8.4-25.7); Bilirubin, Total 1.8 mg/dL (0.2-1.2); Calc. Creatinine Clearance 23 mL/min (70-130); Calcium 8.3 mg/dL (7.8-10.44); Carbon Dioxide 19 mmol/L (23-31); Chloride 121 mmol/L (98-107); Globulin 2.1 g/dL (2.4-3.5); Glucose 136 mg/dL (80-115); Magnesium 2.5 mg/dL (1.6-2.6); Potassium 4.4 mmol/L (3.5-5.1); Sodium 150 mmol/L (136-145)
[2021-06-17] MEDS: Levothyroxine Sodium 75 MCG TAB PO SCH (06:12)
[2021-06-17] MEDS: Dexmedetomidine In 0.9 % NaCl 100 ML IVPB SCH (06:12)
[2021-06-17 06:25] LABS: #Eosinphils 0.4 thou/uL (0.0-0.7); #Lymphocytes 0.5 thou/uL (1.20-3.40); #Monocytes 0.5 thou/uL (0.11-0.59); #Neutrophils 1.9 thou/uL (1.40-6.50); %Basophils 0.2 % (0.0-1.0); %Eosinophils 11.3 % (0.0-10.0); %Lymphocytes 16.2 % (21.0-51.0); %Monocytes 14.5 % (0.0-10.0); %Neutrophils 57.8 % (42.0-75.0); Anisocytosis SLIGHT = 6-15 cells (100X) (0-5/hpf); Hemoglobin 6.2 g/dL (14.0-18.0); MDiff Complete? YES; Macrocytosis SLIGHT = 6-15 cells (100X) (0-5/hpf); Mean Corpuscular Hemoglobin 35.8 pg (27.0-31.0); Mean Platelet Volume 8.7 fL (7.4-10.4); Platelet Count 63 thou/uL (130-400); RBC Distribution Width 14.1 % (11.5-14.5); Red Blood Cell (RBC) Count 1.74 mill/uL (4.70-6.10); White Blood Cell (WBC) Count 3.3 thou/uL (4.8-10.8)
[2021-06-17] MEDS ORDERED: Iron, Sodium Ferric Gluconate 250 MG in Sodium Chloride 0.9% 100 ML IVPB SCH (09:00)
[2021-06-17] MEDS: Midodrine HCl 5 MG TAB PO SCH ×3 (09:26→20:18)
[2021-06-17] MEDS: Sodium Bicarbonate Tab 325 MG TAB PER TUBE SCH ×3 (09:26→20:19)
[2021-06-17] MEDS: Multivit, Therapeutic 1 TAB PO SCH (09:27)
[2021-06-17] MEDS: Rifaximin 550 MG TAB PO SCH ×2 (09:27→20:18)
[2021-06-17] MEDS: Folic Acid 1 MG TAB PO SCH (09:28)
[2021-06-17] MEDS: Thiamine 100 MG TAB PO SCH (11:34)
[2021-06-17] MEDS: Iron, Sodium Ferric Gluconate 250 MG in Sodium Chloride 0.9% 250 ML 250 ML IVPB SCH (11:35)
[2021-06-17 14:21] LABS: Vancomycin, Random 16.9 ug/mL (See Comment)
[2021-06-17] MEDS ORDERED: Vancomycin HCl 500 MG in Sodium Chloride 0.9% 100 ML IVPB SCH (15:00)
[2021-06-17] MEDS ORDERED: Meropenem 500 MG in Sodium Chloride 0.9% 100 ML IVPB SCH (17:30)
[2021-06-17] MEDS: Meropenem 500 MG in Sodium Chloride 0.9% 100 ML IVPB SCH (17:35)
[2021-06-17] MEDS: Famotidine/PF 20 mg/2ml Vial SLOW IVP SCH (20:18)
[2021-06-18] MEDS: Dexmedetomidine In 0.9 % NaCl 100 ML IVPB SCH (02:10)
[2021-06-18] MEDS: Octreotide Acetate 1,250 MCG in Sodium Chloride 0.9% 250 ML 250 ML IVPB SCH (02:30)
[2021-06-18 03:50] LABS: INR-International Normal Ratio 1.7; Prothrombin Time 19.9 sec (12.0-14.7)
[2021-06-18 03:51] LABS: PTT 46.9 sec (22.9-36.1)
[2021-06-18 03:53] LABS: #Eosinphils 0.3 thou/uL (0.0-0.7); #Lymphocytes 0.7 thou/uL (1.20-3.40); #Monocytes 0.6 thou/uL (0.11-0.59); %Basophils 0.3 % (0.0-1.0); %Eosinophils 6.2 % (0.0-10.0); %Lymphocytes 12.1 % (21.0-51.0); %Monocytes 10.7 % (0.0-10.0); %Neutrophils 70.8 % (42.0-75.0); Hemoglobin 7.2 g/dL (14.0-18.0); Mean Corpuscular HGB CONC 32.7 g/dL (32.0-36.0); Mean Corpuscular Hemoglobin 33.3 pg (27.0-31.0); Platelet Count 71 thou/uL (130-400); RBC Distribution Width 15.1 % (11.5-14.5); Red Blood Cell (RBC) Count 2.16 mill/uL (4.70-6.10); White Blood Cell (WBC) Count 5.6 thou/uL (4.8-10.8)
[2021-06-18 03:54] LABS: ALT (SGPT) 7 U/L (8-55); AST (SGOT) 27 U/L (5-34); Albumin 3.9 g/dL (3.4-4.8); Alkaline Phosphatase 68 U/L (40-110); Anion Gap 16 mmol/L (10-20); BUN (Urea Nitrogen) 93 mg/dL (8.4-25.7); Bilirubin, Total 2.8 mg/dL (0.2-1.2); Calc. Creatinine Clearance 24 mL/min (70-130); Calcium 8.6 mg/dL (7.8-10.44); Carbon Dioxide 17 mmol/L (23-31); Chloride 122 mmol/L (98-107); Globulin 2.1 g/dL (2.4-3.5); Glucose 144 mg/dL (80-115); Magnesium 2.5 mg/dL (1.6-2.6); Potassium 4.3 mmol/L (3.5-5.1); Sodium 151 mmol/L (136-145)
[2021-06-18] MEDS ORDERED: Meropenem 500 MG in Sodium Chloride 0.9% 100 ML IVPB SCH (05:00)
[2021-06-18] MEDS: Levothyroxine Sodium 75 MCG TAB PO SCH (05:31)
[2021-06-18] MEDS: Folic Acid 1 MG TAB PO SCH (09:15)
[2021-06-18] MEDS: Multivit, Therapeutic 1 TAB PO SCH (09:15)
[2021-06-18] MEDS: Midodrine HCl 5 MG TAB PO SCH ×3 (09:15→20:49)
[2021-06-18] MEDS: Rifaximin 550 MG TAB PO SCH ×2 (09:15→20:49)
[2021-06-18] MEDS: Sodium Bicarbonate Tab 325 MG TAB PER TUBE SCH ×3 (09:16→20:49)
[2021-06-18] MEDS ORDERED: Haloperidol Lactate 5 MG/ML VIAL SLOW IVP SCH (11:45)
[2021-06-18] MEDS: Thiamine 100 MG TAB PO SCH (12:00)
[2021-06-18] MEDS: Iron, Sodium Ferric Gluconate 250 MG in Sodium Chloride 0.9% 250 ML 250 ML IVPB SCH (13:55)
[2021-06-18 14:30] LABS: Puncture Site RRA
[2021-06-18] MEDS: Albumin 25% 25 GM/100 ML BOT IVPB SCH ×3 (16:13→20:47)
[2021-06-18] MEDS ORDERED: Vancomycin HCl 500 MG in Sodium Chloride 0.9% 100 ML IVPB SCH (16:30)
[2021-06-18] MEDS: Dextrose 5% in Water 1,000 ML IV SCH (16:43)
[2021-06-18] MEDS: Famotidine/PF 20 mg/2ml Vial SLOW IVP SCH (20:50)
[2021-06-18] MEDS: Lorazepam 2 MG/ML VIAL SLOW IVP PRN (20:50)
[2021-06-18] MEDS: hydrALAZINE 20 MG/ML VIAL SLOW IVP PRN (22:14)
[2021-06-19] MEDS: Dextrose 5% in Water 1,000 ML IV SCH (03:25)
[2021-06-19] MEDS: Octreotide Acetate 1,250 MCG in Sodium Chloride 0.9% 250 ML 250 ML IVPB SCH (03:25)
[2021-06-19] MEDS: Albumin 25% 25 GM/100 ML BOT IVPB SCH (03:25)
[2021-06-19] MEDS: Levothyroxine Sodium 75 MCG TAB PO SCH (05:14)
[2021-06-19 06:02] LABS: INR-International Normal Ratio 1.7; Prothrombin Time 20.1 sec (12.0-14.7)
[2021-06-19 06:03] LABS: PTT 51.3 sec (22.9-36.1)
[2021-06-19 06:06] LABS: #Eosinphils 0.3 thou/uL (0.0-0.7); #Lymphocytes 0.5 thou/uL (1.20-3.40); #Monocytes 0.7 thou/uL (0.11-0.59); %Basophils 0.4 % (0.0-1.0); %Eosinophils 4.2 % (0.0-10.0); %Lymphocytes 7.1 % (21.0-51.0); %Monocytes 10.6 % (0.0-10.0); %Neutrophils 77.7 % (42.0-75.0); Hemoglobin 7.3 g/dL (14.0-18.0); MDiff Complete? YES; Macrocytosis MODERATE=16-30 cells (100X) (0-5/hpf); Mean Corpuscular HGB CONC 33.4 g/dL (32.0-36.0); Mean Corpuscular Hemoglobin 34.6 pg (27.0-31.0); Mean Platelet Volume 8.4 fL (7.4-10.4); Ovalocytes MODERATE= 6-15 cells (100X) (0-1/hpf); Platelet Count 58 thou/uL (130-400); Platelet Morphology Comment Appears Decreased; RBC Distribution Width 14.9 % (11.5-14.5); White Blood Cell (WBC) Count 6.4 thou/uL (4.8-10.8)
[2021-06-19] MEDS: Lorazepam 2 MG/ML VIAL SLOW IVP PRN (06:08)
[2021-06-19 06:13] LABS: ALT (SGPT) 8 U/L (8-55); AST (SGOT) 28 U/L (5-34); Albumin 4.4 g/dL (3.4-4.8); Alkaline Phosphatase 65 U/L (40-110); Anion Gap 17 mmol/L (10-20); BUN (Urea Nitrogen) 95 mg/dL (8.4-25.7); Bilirubin, Total 3.2 mg/dL (0.2-1.2); Calc. Creatinine Clearance 24 mL/min (70-130); Carbon Dioxide 16 mmol/L (23-31); Chloride 117 mmol/L (98-107); Globulin 2.2 g/dL (2.4-3.5); Glucose 155 mg/dL (80-115); Potassium 3.7 mmol/L (3.5-5.1); Protein, Total 6.6 g/dL (5.8-8.1); Sodium 146 mmol/L (136-145)
[2021-06-19 08:47] LABS: Actual Bicarbonate (HCO3a) 16.3 mEq/L (22-28); Base Excess (BEa) -7.3 mEq/L (-2.0 to +3.0); Calcium, Ionized (arterial) 1.17 mmol/L (1.12-1.30); Carboxyhemoglobin (COHb) 0.3 gm% (0.0-3.0); Hemoglobin (Hb) 7.2 g/dL (14.0-18.0); O2 Tension (PaO2), arterial 66.4 mmHg (> 80.0); Potassium - ABG Lab 3.71 mmol/L (3.70-5.30); pH, Arterial 7.42 (7.35-7.45)
[2021-06-19 08:48] LABS: CO2 Tension 25.5 mmHg (35.0-45.0); Puncture Site RRA
[2021-06-19] MEDS: Sodium Bicarbonate Tab 325 MG TAB PER TUBE SCH ×3 (08:56→20:18)
[2021-06-19] MEDS: Folic Acid 1 MG TAB PO SCH (08:56)
[2021-06-19] MEDS: Rifaximin 550 MG TAB PO SCH ×2 (08:56→20:19)
[2021-06-19] MEDS: Multivit, Therapeutic 1 TAB PO SCH (08:56)
[2021-06-19] MEDS ORDERED: Sodium Bicarbonate 150 MEQ in Dextrose 5% in Water 1,000 ML IV SCH (09:00)
[2021-06-19] MEDS: Iron, Sodium Ferric Gluconate 250 MG in Sodium Chloride 0.9% 250 ML 250 ML IVPB SCH (10:12)
[2021-06-19] MEDS ORDERED: Heparin 10,000 UNITS/ 10 ML VIAL ONE (10:15)
[2021-06-19] MEDS: Thiamine 100 MG TAB PO SCH (11:30)
[2021-06-19 12:23] LABS: HBSAB Concentration Less than 8.00 mIU/mL; HBSAg Index 0.24 S/CO (0-0.99); Hep B Core Total Ab Non-Reactive (NonReactive); Hep B Core Total Index 0.17 S/CO (0-0.79); Hep B Surf AB Non-Reactive (NonReactive); Hep B Surf Ag Non-Reactive S/CO (NonReactive)
[2021-06-19 13:11] LABS: Hep C IgG Ab Non-Reactive (NonReactive); Hep C Index 0.77 S/CO (0-0.79)
[2021-06-19] MEDS ORDERED: Lorazepam 0.5 MG TAB PER TUBE PRN (16:31)
[2021-06-19] MEDS: Famotidine/PF 20 mg/2ml Vial SLOW IVP SCH (20:18)
[2021-06-20 03:31] LABS: #Eosinphils 0.3 thou/uL (0.0-0.7); #Lymphocytes 0.6 thou/uL (1.20-3.40); #Monocytes 0.8 thou/uL (0.11-0.59); #Neutrophils 7.6 thou/uL (1.40-6.50); %Basophils 0.3 % (0.0-1.0); %Eosinophils 2.9 % (0.0-10.0); %Monocytes 8.8 % (0.0-10.0); Hemoglobin 7.3 g/dL (14.0-18.0); Mean Corpuscular HGB CONC 34.4 g/dL (32.0-36.0); Mean Corpuscular Hemoglobin 35.4 pg (27.0-31.0); Mean Platelet Volume 9.2 fL (7.4-10.4); Platelet Count 68 thou/uL (130-400); RBC Distribution Width 14.9 % (11.5-14.5); Red Blood Cell (RBC) Count 2.06 mill/uL (4.70-6.10); White Blood Cell (WBC) Count 9.3 thou/uL (4.8-10.8)
[2021-06-20 03:40] LABS: INR-International Normal Ratio 1.8; Prothrombin Time 21.2 sec (12.0-14.7)
[2021-06-20 03:41] LABS: PTT 61.3 sec (22.9-36.1)
[2021-06-20 03:53] LABS: ALT (SGPT) 9 U/L (8-55); AST (SGOT) 30 U/L (5-34); Albumin 3.9 g/dL (3.4-4.8); Alkaline Phosphatase 72 U/L (40-110); Anion Gap 17 mmol/L (10-20); BUN (Urea Nitrogen) 98 mg/dL (8.4-25.7); Bilirubin, Total 3.2 mg/dL (0.2-1.2); Calc. Creatinine Clearance 24 mL/min (70-130); Calcium 8.6 mg/dL (7.8-10.44); Carbon Dioxide 18 mmol/L (23-31); Chloride 116 mmol/L (98-107); Globulin 2.5 g/dL (2.4-3.5); Glucose 162 mg/dL (80-115); Potassium 3.5 mmol/L (3.5-5.1); Protein, Total 6.4 g/dL (5.8-8.1); Sodium 147 mmol/L (136-145)
[2021-06-20] MEDS: Levothyroxine Sodium 75 MCG TAB PO SCH (05:02)
[2021-06-20] MEDS: Multivit, Therapeutic 1 TAB PO SCH (08:18)
[2021-06-20] MEDS: Sodium Bicarbonate Tab 325 MG TAB PER TUBE SCH ×3 (08:18→20:10)
[2021-06-20] MEDS: Rifaximin 550 MG TAB PO SCH ×2 (08:18→20:10)
[2021-06-20] MEDS: Folic Acid 1 MG TAB PO SCH (08:18)
[2021-06-20 08:22] LABS: Actual Bicarbonate (HCO3a) 17.9 mEq/L (22-28); Base Excess (BEa) -5.2 mEq/L (-2.0 to +3.0); Calcium, Ionized (arterial) 1.13 mmol/L (1.12-1.30); Carboxyhemoglobin (COHb) 0.6 gm% (0.0-3.0); Potassium - ABG Lab 3.41 mmol/L (3.70-5.30); pH, Arterial 7.47 (7.35-7.45)
[2021-06-20 08:29] LABS: CO2 Tension 25.3 mmHg (35.0-45.0); Puncture Site RRA
[2021-06-20 08:30] LABS: ALV-art Gradient 61.275 mmHg (0-20)
[2021-06-20] MEDS ORDERED: Heparin 10,000 UNITS/ 10 ML VIAL ONE (10:17)
[2021-06-20] MEDS ORDERED: methylPREDNISolone Sod Succ 40 MG VIAL IVP SCH (10:45)
[2021-06-20] MEDS: Thiamine 100 MG TAB PO SCH (11:04)
[2021-06-20] MEDS ORDERED: Lorazepam 2 MG/ML VIAL SLOW IVP PRN (11:16)
[2021-06-20 12:04] LABS: Base Excess 6.4 mEq/L (-2.0 to +3.0); Calcium, Ionized (venous) 1.12 mmol/L (1.16-1.32); Chloride (VBG) 98 mmol/L (98-106); Hemoglobin (Hb) 8.8 g/dL (13.1-17.2); Potassium (VBG) 2.97 mmol/L (3.70-5.30); Sodium 139.3 mmol/L (133-146); pH (venous) 7.38 (7.32-7.43)
[2021-06-20] MEDS: EPOETIN ALFA-EPBX (ESRD) 40,000 UNIT/ML VIAL IVP SCH (13:46)
[2021-06-20 14:29] LABS: Actual Bicarbonate (HCO3v) 33 mEq/L (22-28)
[2021-06-20] MEDS ORDERED: Potassium Bicarbonate/Cit Ac 20 MEQ TAB PER TUBE SCH (15:00)
[2021-06-20] MEDS: Famotidine/PF 20 mg/2ml Vial SLOW IVP SCH (20:10)
[2021-06-21 04:20] LABS: #Lymphocytes 0.6 thou/uL (1.20-3.40); #Monocytes 0.8 thou/uL (0.11-0.59); #Neutrophils 6.6 thou/uL (1.40-6.50); %Eosinophils 0.2 % (0.0-10.0); %Lymphocytes 7.1 % (21.0-51.0); %Neutrophils 82.8 % (42.0-75.0); Mean Corpuscular HGB CONC 32.9 g/dL (32.0-36.0); Mean Corpuscular Hemoglobin 33.8 pg (27.0-31.0); Mean Platelet Volume 9.1 fL (7.4-10.4); Platelet Count 78 thou/uL (130-400); RBC Distribution Width 14.6 % (11.5-14.5); Red Blood Cell (RBC) Count 2.06 mill/uL (4.70-6.10)
[2021-06-21 04:35] LABS: ALT (SGPT) 9 U/L (8-55); AST (SGOT) 28 U/L (5-34); Albumin 3.6 g/dL (3.4-4.8); Alkaline Phosphatase 80 U/L (40-110); Anion Gap 14 mmol/L (10-20); BUN (Urea Nitrogen) 72 mg/dL (8.4-25.7); Bilirubin, Total 2.5 mg/dL (0.2-1.2); Calc. Creatinine Clearance 31 mL/min (70-130); Calcium 8.4 mg/dL (7.8-10.44); Carbon Dioxide 28 mmol/L (23-31); Chloride 105 mmol/L (98-107); Globulin 2.5 g/dL (2.4-3.5); Glucose 176 mg/dL (80-115); Potassium 3.6 mmol/L (3.5-5.1); Protein, Total 6.1 g/dL (5.8-8.1); Sodium 143 mmol/L (136-145)
[2021-06-21] MEDS: Levothyroxine Sodium 75 MCG TAB PO SCH (06:46)
[2021-06-21] MEDS: Sodium Bicarbonate Tab 325 MG TAB PER TUBE SCH ×3 (08:13→21:52)
[2021-06-21] MEDS: Multivit, Therapeutic 1 TAB PO SCH (08:13)
[2021-06-21] MEDS: Folic Acid 1 MG TAB PO SCH (08:13)
[2021-06-21] MEDS: methylPREDNISolone Sod Succ 40 MG VIAL IVP SCH (08:14)
[2021-06-21] MEDS ORDERED: Heparin 10,000 UNITS/ 10 ML VIAL ONE (10:13)
[2021-06-21] MEDS ORDERED: Iron Sucrose Complex 200 MG in Sodium Chloride 0.9% 100 ML IVPB SCH (10:30)
[2021-06-21] MEDS: Thiamine 100 MG TAB PO SCH (10:49)
[2021-06-21] MEDS: Dextrose 5% in Water 1,000 ML IV SCH (10:50)
[2021-06-21] MEDS ORDERED: Iron, Sodium Ferric Gluconate 250 MG, Admixture Fee 1 EACH in Sodium Chloride 0.9% 250 ... IVPB SCH (12:00)
[2021-06-21] MEDS: Famotidine/PF 20 mg/2ml Vial SLOW IVP SCH (21:52)
[2021-06-21] MEDS: Rifaximin 550 MG TAB PO SCH (21:52)
[2021-06-22 03:57] LABS: #Lymphocytes 0.6 thou/uL (1.20-3.40); #Monocytes 0.7 thou/uL (0.11-0.59); #Neutrophils 7.6 thou/uL (1.40-6.50); %Eosinophils 0.1 % (0.0-10.0); %Lymphocytes 6.3 % (21.0-51.0); %Neutrophils 85.6 % (42.0-75.0); Mean Corpuscular HGB CONC 31.6 g/dL (32.0-36.0); Mean Corpuscular Hemoglobin 32.6 pg (27.0-31.0); Mean Platelet Volume 9.2 fL (7.4-10.4); Platelet Count 91 thou/uL (130-400); Red Blood Cell (RBC) Count 2.15 mill/uL (4.70-6.10); White Blood Cell (WBC) Count 8.8 thou/uL (4.8-10.8)
[2021-06-22 04:16] LABS: ALT (SGPT) 12 U/L (8-55); AST (SGOT) 27 U/L (5-34); Albumin 3.4 g/dL (3.4-4.8); Alkaline Phosphatase 93 U/L (40-110); Anion Gap 14 mmol/L (10-20); BUN (Urea Nitrogen) 53 mg/dL (8.4-25.7); Bilirubin, Total 1.7 mg/dL (0.2-1.2); Calc. Creatinine Clearance 34 mL/min (70-130); Calcium 8.2 mg/dL (7.8-10.44); Carbon Dioxide 27 mmol/L (23-31); Chloride 101 mmol/L (98-107); Globulin 2.4 g/dL (2.4-3.5); Glucose 177 mg/dL (80-115); Potassium 3.5 mmol/L (3.5-5.1); Protein, Total 5.8 g/dL (5.8-8.1); Sodium 138 mmol/L (136-145)
[2021-06-22] MEDS: Dextrose 5% in Water 1,000 ML IV SCH (04:48)
[2021-06-22] MEDS: Levothyroxine Sodium 75 MCG TAB PO SCH (05:57)
[2021-06-22] MEDS: Rifaximin 550 MG TAB PO SCH ×2 (08:18→21:54)
[2021-06-22] MEDS: Folic Acid 1 MG TAB PO SCH (08:18)
[2021-06-22] MEDS: Multivit, Therapeutic 1 TAB PO SCH (08:18)
[2021-06-22] MEDS: methylPREDNISolone Sod Succ 40 MG VIAL IVP SCH (08:18)
[2021-06-22] MEDS: Sodium Bicarbonate Tab 325 MG TAB PER TUBE SCH (08:18)
[2021-06-22] MEDS ORDERED: Tuberculin PPD 0.1 ML VIAL I-DERMAL SCH (10:00)
[2021-06-22] MEDS: Thiamine 100 MG TAB PO SCH (12:43)
[2021-06-22] MEDS: Famotidine 20 MG TAB PER TUBE SCH (21:54)
[2021-06-23] MEDS: Dextrose 5% in Water 1,000 ML IV SCH (01:01)
[2021-06-23] MEDS: Levothyroxine Sodium 75 MCG TAB PO SCH (05:27)
[2021-06-23 05:39] LABS: #Lymphocytes 0.7 thou/uL (1.20-3.40); #Monocytes 0.7 thou/uL (0.11-0.59); #Neutrophils 6.5 thou/uL (1.40-6.50); %Basophils 0.1 % (0.0-1.0); %Eosinophils 0.3 % (0.0-10.0); %Lymphocytes 8.4 % (21.0-51.0); %Monocytes 8.5 % (0.0-10.0); %Neutrophils 82.8 % (42.0-75.0); Mean Corpuscular HGB CONC 32.9 g/dL (32.0-36.0); Mean Corpuscular Hemoglobin 34.2 pg (27.0-31.0); Mean Platelet Volume 8.9 fL (7.4-10.4); Platelet Count 85 thou/uL (130-400); Red Blood Cell (RBC) Count 2.06 mill/uL (4.70-6.10); White Blood Cell (WBC) Count 7.8 thou/uL (4.8-10.8)
[2021-06-23 06:00] LABS: ALT (SGPT) 12 U/L (8-55); AST (SGOT) 25 U/L (5-34); Albumin 3.3 g/dL (3.4-4.8); Alkaline Phosphatase 91 U/L (40-110); Anion Gap 13 mmol/L (10-20); BUN (Urea Nitrogen) 73 mg/dL (8.4-25.7); Bilirubin, Total 1.5 mg/dL (0.2-1.2); Calc. Creatinine Clearance 24 mL/min (70-130); Calcium 7.9 mg/dL (7.8-10.44); Carbon Dioxide 27 mmol/L (23-31); Chloride 99 mmol/L (98-107); Globulin 2.4 g/dL (2.4-3.5); Glucose 174 mg/dL (80-115); Potassium 3.3 mmol/L (3.5-5.1); Protein, Total 5.7 g/dL (5.8-8.1); Sodium 136 mmol/L (136-145)
[2021-06-23] MEDS ORDERED: Potassium Chloride 20 MEQ TAB PO SCH (06:30)
[2021-06-23] MEDS: Folic Acid 1 MG TAB PO SCH (08:42)
[2021-06-23] MEDS: Multivit, Therapeutic 1 TAB PO SCH (08:42)
[2021-06-23] MEDS: Rifaximin 550 MG TAB PO SCH ×2 (08:42→21:23)
[2021-06-23] MEDS ORDERED: Heparin 10,000 UNITS/ 10 ML VIAL ONE (09:13)
[2021-06-23] MEDS: Thiamine 100 MG TAB PO SCH (15:15)
[2021-06-23] MEDS: EPOETIN ALFA-EPBX (ESRD) 40,000 UNIT/ML VIAL IVP SCH (15:16)
[2021-06-23] MEDS: Acetaminophen 500 MG TAB PO PRN (21:22)
[2021-06-23] MEDS: Famotidine 20 MG TAB PER TUBE SCH (21:23)
[2021-06-24] MEDS: Levothyroxine Sodium 75 MCG TAB PO SCH (05:31)
[2021-06-24] MEDS ORDERED: CEFAZOLIN 2 GM, Admixture Fee 1 EACH in Sodium Chloride 0.9% 100 ML IVPB SCH (08:30)
[2021-06-24] MEDS: Rifaximin 550 MG TAB PO SCH ×2 (09:03→21:04)
[2021-06-24] MEDS: Multivit, Therapeutic 1 TAB PO SCH (09:03)
[2021-06-24] MEDS: Folic Acid 1 MG TAB PO SCH (09:03)
[2021-06-24 10:11] LABS: Anion Gap 11 mmol/L (10-20); BUN (Urea Nitrogen) 49 mg/dL (8.4-25.7); Calc. Creatinine Clearance 27 mL/min (70-130); Calcium 7.5 mg/dL (7.8-10.44); Carbon Dioxide 28 mmol/L (23-31); Chloride 102 mmol/L (98-107); Glucose 104 mg/dL (80-115); Magnesium 2.1 mg/dL (1.6-2.6); Potassium 3.3 mmol/L (3.5-5.1); Sodium 138 mmol/L (136-145)
[2021-06-24 10:13] LABS: Hemoglobin 7.7 g/dL (14.0-18.0); Mean Corpuscular HGB CONC 33.7 g/dL (32.0-36.0); Mean Corpuscular Hemoglobin 35.3 pg (27.0-31.0); Mean Platelet Volume 8.6 fL (7.4-10.4); Platelet Count 102 thou/uL (130-400); RBC Distribution Width 15.8 % (11.5-14.5); Red Blood Cell (RBC) Count 2.19 mill/uL (4.70-6.10); White Blood Cell (WBC) Count 6.4 thou/uL (4.8-10.8)
[2021-06-24] MEDS: Thiamine 100 MG TAB PO SCH (10:38)
[2021-06-24 12:08] VITALS: BMI 28.6
[2021-06-24] MEDS ORDERED: Polyethylene Glycol 3350 17 GM Packet PO PRN (12:26)
[2021-06-24] MEDS ORDERED: Docusate 100 MG CAP PO PRN (12:26)
[2021-06-24] MEDS ORDERED: Potassium Chloride 20 MEQ TAB PO SCH (12:30)
[2021-06-24] MEDS ORDERED: Spironolactone 25 MG TAB PO SCH (12:30)
[2021-06-24] MEDS ORDERED: Heparin 5,000 UNITS/ML VIAL ONE (16:35)
[2021-06-24] MEDS ORDERED: ceFAZolin 2 GM/Dextrose 50 ML 2 GM in Premix Bag 1 BAG IVPB SCH (16:45)
[2021-06-24] MEDS: Famotidine 20 MG TAB PER TUBE SCH (21:04)
[2021-06-24] MEDS: Acetaminophen 500 MG TAB PO PRN (21:10)
[2021-06-25] MEDS: Levothyroxine Sodium 75 MCG TAB PO SCH (05:06)
[2021-06-25 05:22] LABS: Hemoglobin 7.7 g/dL (14.0-18.0); Mean Corpuscular HGB CONC 33.3 g/dL (32.0-36.0); Mean Corpuscular Hemoglobin 34.7 pg (27.0-31.0); Mean Platelet Volume 8.5 fL (7.4-10.4); Platelet Count 109 thou/uL (130-400); Red Blood Cell (RBC) Count 2.23 mill/uL (4.70-6.10)
[2021-06-25 05:44] LABS: Anion Gap 13 mmol/L (10-20); BUN (Urea Nitrogen) 58 mg/dL (8.4-25.7); Calc. Creatinine Clearance 21 mL/min (70-130); Calcium 7.6 mg/dL (7.8-10.44); Carbon Dioxide 26 mmol/L (23-31); Chloride 104 mmol/L (98-107); Glucose 107 mg/dL (80-115); Potassium 3.5 mmol/L (3.5-5.1); Sodium 139 mmol/L (136-145)
[2021-06-25] MEDS ORDERED: Lidocaine 1% w/Epinephrine 1:100K 20 ML VIAL ONE (06:31)
[2021-06-25] MEDS ORDERED: Heparin 10,000 UNITS/ 10 ML VIAL ONE ×2 (06:31→08:52)
[2021-06-25] MEDS ORDERED: Bupivacaine 0.25% 10 ML VIAL ONE (06:31)
[2021-06-25] MEDS ORDERED: Heparin 5,000 UNITS/ML VIAL ONE (06:31)
[2021-06-25] MEDS ORDERED: Protamine Sulfate 50 MG/5 ML VIAL ONE (06:31)
[2021-06-25] MEDS ORDERED: PROPOFOL 0 ML ONE (06:53)
[2021-06-25] MEDS ORDERED: Famotidine/PF 20 mg/2ml Vial ONE (06:53)
[2021-06-25] MEDS ORDERED: Fentanyl 100 MCG/2 ML VIAL ONE (06:53)
[2021-06-25] MEDS ORDERED: PHENYLEPHRINE-NS 100 MCG/ML 10 ML SYRINGE ONE ×2 (07:18→07:26)
[2021-06-25] MEDS ORDERED: ceFAZolin (BATCH) 2 GM/100 ML BAG ONE (07:21)
[2021-06-25] MEDS ORDERED: PROPOFOL 200 MG/20 ML VIAL ONE (07:26)
[2021-06-25] MEDS ORDERED: ePHEDrine 50 MG/ML VIAL ONE (07:26)
[2021-06-25] MEDS ORDERED: Ondansetron PF 4 MG/2 ML Vial ONE (07:26)
[2021-06-25] MEDS ORDERED: Lidocaine 1% PF 5 ML VIAL ONE (07:26)
[2021-06-25] MEDS ORDERED: Ondansetron HCl/PF 4 MG/2 ML Vial IVP PRN (08:37)
[2021-06-25] MEDS: Folic Acid 1 MG TAB PO SCH (10:38)
[2021-06-25] MEDS: Rifaximin 550 MG TAB PO SCH ×2 (10:38→19:47)
[2021-06-25] MEDS: Multivit, Therapeutic 1 TAB PO SCH (10:38)
[2021-06-25] MEDS: Spironolactone 25 MG TAB PO SCH (10:38)
[2021-06-25] MEDS ORDERED: Heparin 5,000 UNITS/ML VIAL SLOW IVP SCH (11:15)
[2021-06-25] MEDS: Thiamine 100 MG TAB PO SCH (15:08)
[2021-06-25] MEDS: EPOETIN ALFA-EPBX (ESRD) 40,000 UNIT/ML VIAL IVP SCH (15:09)
[2021-06-25] MEDS: Famotidine 20 MG TAB PER TUBE SCH (19:47)
[2021-06-26] MEDS: Acetaminophen 500 MG TAB PO PRN (01:26)
[2021-06-26] MEDS: Levothyroxine Sodium 75 MCG TAB PO SCH (05:13)
[2021-06-26 05:49] LABS: Anion Gap 13 mmol/L (10-20); BUN (Urea Nitrogen) 39 mg/dL (8.4-25.7); Calc. Creatinine Clearance 21 mL/min (70-130); Calcium 7.4 mg/dL (7.8-10.44); Carbon Dioxide 28 mmol/L (23-31); Chloride 100 mmol/L (98-107); Glucose 182 mg/dL (80-115); Potassium 3.6 mmol/L (3.5-5.1); Sodium 137 mmol/L (136-145)
[2021-06-26] MEDS: Multivit, Therapeutic 1 TAB PO SCH (08:38)
[2021-06-26] MEDS: Spironolactone 25 MG TAB PO SCH (08:38)
[2021-06-26] MEDS: Rifaximin 550 MG TAB PO SCH ×2 (08:38→20:19)
[2021-06-26] MEDS: Folic Acid 1 MG TAB PO SCH (08:39)
[2021-06-26] MEDS ORDERED: Spironolactone 25 MG TAB PO SCH (11:00)
[2021-06-26] MEDS: Thiamine 100 MG TAB PO SCH (12:01)
[2021-06-26] MEDS: Famotidine 20 MG TAB PER TUBE SCH (20:19)
[2021-06-26] MEDS ORDERED: Melatonin 3 MG TAB PO SCH (20:38)
[2021-06-26] MEDS: traMADol HCl 50 MG TAB PO PRN (23:11)
[2021-06-27] MEDS ORDERED: Melatonin 3 MG TAB PO SCH (01:00)
[2021-06-27] MEDS: Levothyroxine Sodium 75 MCG TAB PO SCH (05:19)
[2021-06-27 05:47] LABS: Hemoglobin 6.2 g/dL (14.0-18.0); Mean Corpuscular HGB CONC 33.4 g/dL (32.0-36.0); Mean Corpuscular Hemoglobin 35.7 pg (27.0-31.0); Mean Platelet Volume 8.5 fL (7.4-10.4); Platelet Count 83 thou/uL (130-400); RBC Distribution Width 17.1 % (11.5-14.5); Red Blood Cell (RBC) Count 1.74 mill/uL (4.70-6.10); White Blood Cell (WBC) Count 4.6 thou/uL (4.8-10.8)
[2021-06-27 06:02] LABS: Anion Gap 16 mmol/L (10-20); BUN (Urea Nitrogen) 47 mg/dL (8.4-25.7); Calc. Creatinine Clearance 18 mL/min (70-130); Calcium 7.5 mg/dL (7.8-10.44); Carbon Dioxide 25 mmol/L (23-31); Chloride 101 mmol/L (98-107); Glucose 151 mg/dL (80-115); Potassium 3.8 mmol/L (3.5-5.1); Sodium 138 mmol/L (136-145)
[2021-06-27 06:24] LABS: Hemoglobin 6.2 g/dL (14.0-18.0)
[2021-06-27] MEDS ORDERED: Spironolactone 25 MG TAB PO SCH (08:00)
[2021-06-27] MEDS ORDERED: Heparin 10,000 UNITS/ 10 ML VIAL ONE (08:56)
[2021-06-27] MEDS: Thiamine 100 MG TAB PO SCH (11:00)
[2021-06-27] MEDS: traMADol HCl 50 MG TAB PO PRN (11:00)
[2021-06-27] MEDS: Multivit, Therapeutic 1 TAB PO SCH (11:00)
[2021-06-27] MEDS: Rifaximin 550 MG TAB PO SCH (11:00)
[2021-06-27] MEDS: Folic Acid 1 MG TAB PO SCH (11:00)
[2021-06-27] MEDS: EPOETIN ALFA-EPBX (ESRD) 40,000 UNIT/ML VIAL IVP SCH (11:37)
[2021-06-27] MEDS ORDERED: Ergocalciferol 1.25 MG(50,000 UNITS) CAP PO SCH (13:30)
[2021-06-27 16:04] LABS: Hemoglobin 7.8 g/dL (14.0-18.0)
[2021-06-27 18:11] VITALS: BP 141/57; TEMP 98.5
[2021-07-04] MEDS ORDERED: Ergocalciferol 1.25 MG(50,000 UNITS) CAP PO SCH (09:00)
== END 2021-06-27 19:12 | disposition home or self-care (01) | DRG 981 ==
LOC: ERS 07:37 → CCU 09:52 → IMCU/EMU 06-21 19:28 → T4-A 06-22 17:48
PROVIDERS: ADMIT Family Medicine; ATTEND Internal Medicine
PROC: 5A1955Z Respiratory Ventilation, Greater than 96 Consecutive Hours (ICD-10-PCS; 2021-06-10)
PROC: 8E0ZXY6 Isolation (ICD-10-PCS; 2021-06-10)
PROC: 0D9670Z Drainage of Stomach with Drainage Device, Via Natural or Artificial Opening (ICD-10-PCS; 2021-06-10)
PROC: 0W993ZX Drainage of Right Pleural Cavity, Percutaneous Approach, Diagnostic (ICD-10-PCS; 2021-06-10)
PROC: 3E0G76Z Introduction of Nutritional Substance into Upper GI, Via Natural or Artificial Opening (ICD-10-PCS; 2021-06-10)
PROC: 30233N1 Transfusion of Nonautologous Red Blood Cells into Peripheral Vein, Percutaneous Approach (ICD-10-PCS; 2021-06-17)
PROC: 5A1D70Z Performance of Urinary Filtration, Intermittent, Less than 6 Hours Per Day (ICD-10-PCS; 2021-06-19)
PROC: 5A09357 Assistance with Respiratory Ventilation, Less than 24 Consecutive Hours, Continuous Positive Airway Pressure (ICD-10-PCS; 2021-06-19)
PROC: 06HY33Z Insertion of Infusion Device into Lower Vein, Percutaneous Approach (ICD-10-PCS; 2021-06-19)
PROC: HZ2ZZZZ Detoxification Services for Substance Abuse Treatment (ICD-10-PCS; 2021-06-21)
PROC: 031B0ZF Bypass Right Radial Artery to Lower Arm Vein, Open Approach (ICD-10-PCS; principal; 2021-06-25)
PROC: 0JH63XZ Insertion of Tunneled Vascular Access Device into Chest Subcutaneous Tissue and Fascia, Percutaneous Approach (ICD-10-PCS; 2021-06-25)
PROC: 02HV33Z Insertion of Infusion Device into Superior Vena Cava, Percutaneous Approach (ICD-10-PCS; 2021-06-25)
PROC: B5181ZA Fluoroscopy of Superior Vena Cava using Low Osmolar Contrast, Guidance (ICD-10-PCS; 2021-06-25)
PROC: 02HV33Z Insertion of Infusion Device into Superior Vena Cava, Percutaneous Approach (ICD-10-PCS; 2021-06-25)
PROC: B548ZZA Ultrasonography of Superior Vena Cava, Guidance (ICD-10-PCS; 2021-06-25)
DX: K70.31 Alcoholic cirrhosis of liver with ascites (principal); J96.01 Acute respiratory failure with hypoxia; K72.00 Acute and subacute hepatic failure without coma; U07.1 COVID-19; J12.82 Pneumonia due to coronavirus disease 2019; N18.6 End stage renal disease; K76.7 Hepatorenal syndrome; G92.8 Other toxic encephalopathy; K65.2 Spontaneous bacterial peritonitis; N17.0 Acute kidney failure with tubular necrosis; K56.7 Ileus, unspecified; E87.0 Hyperosmolality and hypernatremia; K76.6 Portal hypertension; J98.11 Atelectasis; E87.2 Acidosis; J94.8 Other specified pleural conditions; E87.3 Alkalosis; I47.2 Ventricular tachycardia; D61.818 Other pancytopenia; E87.1 Hypo-osmolality and hyponatremia; D68.4 Acquired coagulation factor deficiency; F10.239 Alcohol dependence with withdrawal, unspecified; D62 Acute posthemorrhagic anemia; J91.8 Pleural effusion in other conditions classified elsewhere; Z66 Do not resuscitate; D63.1 Anemia in chronic kidney disease; E03.9 Hypothyroidism, unspecified; R68.0 Hypothermia, not associated with low environmental temperature; F15.10 Other stimulant abuse, uncomplicated; I67.1 Cerebral aneurysm, nonruptured; E86.9 Volume depletion, unspecified; I08.3 Combined rheumatic disorders of mitral, aortic and tricuspid valves; E88.09 Other disorders of plasma-protein metabolism, not elsewhere classified; D53.9 Nutritional anemia, unspecified; D50.9 Iron deficiency anemia, unspecified; D73.1 Hypersplenism; E55.9 Vitamin D deficiency, unspecified; I49.3 Ventricular premature depolarization; Z78.1 Physical restraint status; Z99.2 Dependence on renal dialysis; Z79.899 Other long term (current) drug therapy; Z98.890 Other specified postprocedural states
CPT/HCPCS: 36415; 36416; 36430; 36600; 51702; 70450; 70496; 70498; 71045; 71260; 72125; 74018; 74177; 76705; 80048; 80053; 80202; 80306; 80307; 81001; 81003; 81015; 82105; 82140; 82570; 82728; 82805; 82945; 83036; 83540; 83550; 83735; 84100; 84145; 84156; 84157; 84300; 84439; 84443; 84540; 85025; 85027; 85060; 85610; 85730; 86140; 86704; 86706; 86803; 86850; 86900; 86901; 87040; 87070; 87086; 87205; 87340; 88112; 88305; 89051; 90935; 93005; 93306; 93970; 94002; 94003; 94640; 94660; 94760; C1713; C1751; C1752; C1776; G0257; J0360; J0690; J1630; J1642; J1644; J1940; J2001; J2060; J2185; J2270; J2354; J2405; J2704; J2720; J2916; J2920; J3010; J3370; J3411; J3490; J7050; J7070; J7620; P9016; P9047; Q5105; Q9967; S0020; S0028; U0003; U0005

== ENCOUNTER 2022-02-10 05:35 | Day surgery (SDC) | payer MEDICARE ==
[2022-02-09 11:15] VITALS: BMI 28.5
[2022-02-10] MEDS ORDERED: Lidocaine 2% PF 5 ML VIAL ONE (06:36)
[2022-02-10] MEDS ORDERED: Protamine Sulfate 50 MG/5 ML VIAL ONE (06:36)
[2022-02-10] MEDS ORDERED: Heparin 5,000 UNITS/ML VIAL ONE (06:36)
[2022-02-10] MEDS ORDERED: Bupivacaine HCl 0.5%/Epinephrine 1:200,000/PF 30 ml Vial ONE (06:36)
[2022-02-10 06:43] LABS: #Eosinphils 0.5 thou/uL (0.0-0.7); #Monocytes 0.4 thou/uL (0.11-0.59); #Neutrophils 2.8 thou/uL (1.40-6.50); %Basophils 0.7 % (0.0-1.0); %Eosinophils 10.7 % (0.0-10.0); %Lymphocytes 19.9 % (21.0-51.0); %Monocytes 9.3 % (0.0-10.0); %Neutrophils 59.4 % (42.0-75.0); Hemoglobin 8.2 g/dL (14.0-18.0); Mean Corpuscular HGB CONC 32.4 g/dL (32.0-36.0); Mean Corpuscular Hemoglobin 31.3 pg (27.0-31.0); Mean Corpuscular Volume 96.8 fl (78.0-98.0); Mean Platelet Volume 9.6 fL (7.4-10.4); Platelet Count 107 10x3/uL (130-400); RBC Distribution Width 16.7 % (11.5-14.5); Red Blood Cell (RBC) Count 2.61 mill/uL (4.70-6.10); White Blood Cell (WBC) Count 4.8 10x3/uL (4.8-10.8)
[2022-02-10] MEDS ORDERED: Propofol 500 MG/50 ML VIAL ONE (06:52)
[2022-02-10] MEDS ORDERED: Midazolam HCl 2 mg/2 ml Vial ONE (06:52)
[2022-02-10] MEDS ORDERED: fentaNYL PF 100 MCG/2 ML SYRINGE ONE ×2 (06:52→07:31)
[2022-02-10 06:58] LABS: Anion Gap 16 mmol/L (10-20); BUN (Urea Nitrogen) 72 mg/dL (8.4-25.7); Calc. Creatinine Clearance 11 mL/min (70-130); Calcium 7.8 mg/dL (7.8-10.44); Carbon Dioxide 16 mmol/L (23-31); Chloride 113 mmol/L (98-107); Estimated GFR 6; Glucose 112 mg/dL (80-115); Potassium 4.7 mmol/L (3.5-5.1); Sodium 140 mmol/L (136-145)
[2022-02-10] MEDS ORDERED: Lidocaine Jelly 2% Urojet 10 ML ONE (07:04)
[2022-02-10] MEDS ORDERED: CEFAZOLIN 2 GM VIAL ONE (07:14)
[2022-02-10] MEDS ORDERED: Sodium Chloride 0.9% 100 ML ONE (07:14)
[2022-02-10] MEDS ORDERED: Ropivacaine 0.5% HCl/PF (150 MG/30 ML VIAL) ONE (07:30)
[2022-02-10] MEDS ORDERED: Albumin 5% 250 ML ONE (09:13)
[2022-02-10] MEDS ORDERED: HYDROcodone/Acetaminophen 5/325 mg Tablet ONE (11:14)
[2022-02-10] MEDS ORDERED: Heparin 1,000 UNITS/ML VIAL ONE (12:53)
== END 2022-02-10 14:00 | disposition home or self-care (01) ==
LOC: SDC 05:35
PROVIDERS: ATTEND Specialist
PROC: 05SB0ZZ Reposition Right Basilic Vein, Open Approach (ICD-10-PCS; principal; 2022-02-10)
DX: N18.6 End stage renal disease (principal); T82.590A Other mechanical complication of surgically created arteriovenous fistula, initial encounter; Z79.899 Other long term (current) drug therapy; Y81.3 Surgical instruments, materials and general- and plastic-surgery devices (including sutures) associated with adverse incidents
CPT/HCPCS: 36430; 36819; 80048; 85025; 86850; 86900; 86901; 86920; C1713; C1776; P9016; P9045; J1644; J2001; J2250; J2704; J2720; J2795; J3490

== ENCOUNTER 2022-03-01 03:42 | Inpatient (IN) | payer MEDICARE ==
[2022-03-01 04:22] LABS: #Basophils 0.1 thou/uL (0.0-0.2); #Eosinphils 0.6 thou/uL (0.0-0.7); #Monocytes 0.5 thou/uL (0.11-0.59); #Neutrophils 3.6 thou/uL (1.40-6.50); %Basophils 1.1 % (0.0-1.0); %Eosinophils 9.9 % (0.0-10.0); %Lymphocytes 17.3 % (21.0-51.0); %Monocytes 9.3 % (0.0-10.0); %Neutrophils 62.4 % (42.0-75.0); Hemoglobin 8.4 g/dL (14.0-18.0); Mean Corpuscular HGB CONC 33.1 g/dL (32.0-36.0); Mean Corpuscular Hemoglobin 32.4 pg (27.0-31.0); Mean Platelet Volume 10.3 fL (7.4-10.4); Platelet Count 114 10x3/uL (130-400); RBC Distribution Width 19.5 % (11.5-14.5); White Blood Cell (WBC) Count 5.8 10x3/uL (4.8-10.8)
[2022-03-01 04:40] LABS: ALT (SGPT) 21 U/L (8-55); AST (SGOT) 48 U/L (5-34); Albumin 2.3 g/dL (3.4-4.8); Alkaline Phosphatase 188 U/L (40-110); Anion Gap 18 mmol/L (10-20); BUN (Urea Nitrogen) 86 mg/dL (8.4-25.7); Bilirubin, Total 1.4 mg/dL (0.2-1.2); Calc. Creatinine Clearance 0 mL/min (70-130); Calcium 7.5 mg/dL (7.8-10.44); Carbon Dioxide 14 mmol/L (23-31); Chloride 116 mmol/L (98-107); Estimated GFR 7; Globulin 3.5 g/dL (2.4-3.5); Glucose 133 mg/dL (80-115); Potassium 5.1 mmol/L (3.5-5.1); Protein, Total 5.8 g/dL (5.8-8.1); Sodium 143 mmol/L (136-145)
[2022-03-01 05:03] LABS: CKMB 4.7 ng/mL (0-6.6)
[2022-03-01] MEDS ORDERED: Ondansetron PF 4 MG/2 ML Vial IVP PRN (05:39)
[2022-03-01] MEDS ORDERED: Furosemide 100 MG/10 ML VIAL SLOW IVP SCH (06:30)
[2022-03-01] MEDS ORDERED: Furosemide 40 MG/4 ML VIAL ONE (06:36)
[2022-03-01 07:18] LABS: Amphetamine Not Detected (NotDetected); Barbiturates Screen Not Detected (NotDetected); Benzodiazepine Screen Not Detected (NotDetected); Cocaine Metabolite Screen Detected (NotDetected); Methadone Not Detected (NotDetected); Methamphetamine Not Detected (NotDetected); Opiate Screen Detected (NotDetected); Oxycodone Screen Not Detected (NotDetected); Phencyclidine (PCP) Not Detected (NotDetected); THC/Cannabinoid Screen Not Detected (NotDetected); Tricyclic Screen Not Detected (NotDetected)
[2022-03-01 08:09] LABS: Troponin I 0.032 ng/mL (< 0.028)
[2022-03-01 10:00] LABS: INR-International Normal Ratio 1.3; PTT 30.3 sec (22.9-36.1)
[2022-03-01 10:46] LABS: Troponin I 0.029 ng/mL (< 0.028)
[2022-03-01 13:09] LABS: HBSAB Concentration Less than 8.00 mIU/mL; HBSAg Index 0.36 S/CO (0-0.99); Hep B Core Total Ab Non-Reactive (NonReactive); Hep B Core Total Index 0.18 S/CO (0-0.79); Hep B Surf AB Non-Reactive (NonReactive); Hep B Surf Ag Non-Reactive S/CO (NonReactive); Hep C IgG Ab Non-Reactive (NonReactive); Hep C Index 0.21 S/CO (0-0.79)
[2022-03-01] MEDS ORDERED: Lidocaine 2% PF 5 ML VIAL ONE (13:29)
[2022-03-01] MEDS ORDERED: Sodium Bicarbonate 2.5 MEQ/5 ML VIAL ONE (13:29)
[2022-03-01] MEDS ORDERED: Furosemide 40 MG/4 ML VIAL SLOW IVP SCH (14:00)
[2022-03-01] MEDS ORDERED: Heparin 10,000 UNITS/ 10 ML VIAL ONE (14:00)
[2022-03-01 15:55] LABS: RBC Count-Automated (BF) 950 /cu.mm; WBC/Nucleated-Auto (BF) 65 /cu.mm
[2022-03-01 16:15] LABS: BF Color Yellow; Body Fluid Source Pleural Fluid; Clarity Hazy (Clear); Tube # EDTA
[2022-03-01] MEDS ORDERED: Sterile Water 10 ML VIAL IVP SCH ×2 (16:15→16:30)
[2022-03-01] MEDS ORDERED: Activase 2 MG VIAL CATH SCH ×2 (16:15→16:30)
[2022-03-01 16:44] LABS: BF Segmented Neutrophils 7 %; Cell Count Non Hematic 48 %; Eosinophils 1 %; Lymphocytes 44 %
[2022-03-02 04:41] LABS: #Eosinphils 0.3 thou/uL (0.0-0.7); #Lymphocytes 0.9 thou/uL (1.20-3.40); #Monocytes 0.5 thou/uL (0.11-0.59); #Neutrophils 2.7 thou/uL (1.40-6.50); %Eosinophils 7.7 % (0.0-10.0); %Lymphocytes 20.8 % (21.0-51.0); %Monocytes 11.2 % (0.0-10.0); %Neutrophils 59.3 % (42.0-75.0); Hemoglobin 7.8 g/dL (14.0-18.0); Mean Corpuscular HGB CONC 31.7 g/dL (32.0-36.0); Mean Corpuscular Hemoglobin 31.3 pg (27.0-31.0); Mean Corpuscular Volume 98.6 fl (78.0-98.0); Mean Platelet Volume 10.7 fL (7.4-10.4); Platelet Count 87 10x3/uL (130-400); RBC Distribution Width 20.1 % (11.5-14.5); Red Blood Cell (RBC) Count 2.49 mill/uL (4.70-6.10); White Blood Cell (WBC) Count 4.5 10x3/uL (4.8-10.8)
[2022-03-02 04:50] LABS: INR-International Normal Ratio 1.3; PTT 32.8 sec (22.9-36.1)
[2022-03-02 04:56] LABS: Anion Gap 14 mmol/L (10-20); BUN (Urea Nitrogen) 67 mg/dL (8.4-25.7); Calc. Creatinine Clearance 17 mL/min (70-130); Calcium 7.3 mg/dL (7.8-10.44); Carbon Dioxide 20 mmol/L (23-31); Chloride 113 mmol/L (98-107); Estimated GFR 9; Glucose 94 mg/dL (80-115); Potassium 4.9 mmol/L (3.5-5.1); Sodium 142 mmol/L (136-145)
[2022-03-02 05:02] LABS: ALT (SGPT) 18 U/L (8-55); AST (SGOT) 36 U/L (5-34); Alkaline Phosphatase 168 U/L (40-110); Bilirubin, Direct 0.7 mg/dL (0.1-0.3); Bilirubin, Total 1.5 mg/dL (0.2-1.2); Protein, Total 5.4 g/dL (5.8-8.1)
[2022-03-02] MEDS ORDERED: EPOETIN ALFA-EPBX (ESRD) 10,000 UNIT/ML VIAL SC SCH (09:00)
[2022-03-02] MEDS: Spironolactone 25 MG TAB PO SCH (09:09)
[2022-03-02] MEDS: Epoetin (ESRD) 10,000 UNITS/ML VIAL SC SCH (09:09)
[2022-03-02] MEDS: Furosemide 20 MG TAB PO SCH (09:09)
[2022-03-02] MEDS ORDERED: Lidocaine 2% PF 5 ML VIAL ONE (09:40)
[2022-03-02] MEDS ORDERED: Sodium Bicarbonate 2.5 MEQ/5 ML VIAL ONE (09:40)
[2022-03-02] MEDS ORDERED: Ondansetron ODT 4 MG TAB PO PRN (09:48)
[2022-03-02] MEDS ORDERED: Lorazepam 1 MG TAB PO PRN (09:48)
[2022-03-02] MEDS ORDERED: Lorazepam 2 MG/ML VIAL IM PRN (09:48)
[2022-03-02] MEDS ORDERED: Electrolyte Replacement Protocol 1 EACH FS SCH (10:00)
[2022-03-02] MEDS ORDERED: Ergocalciferol 1.25 MG(50,000 UNITS) CAP PO SCH (10:15)
[2022-03-02] MEDS: Lorazepam 1 MG TAB PO SCH ×3 (11:29→23:27)
[2022-03-02] MEDS: Thiamine HCl 200 MG/2 ML VIAL SLOW IVP SCH (11:29)
[2022-03-02] MEDS ORDERED: Heparin 10,000 UNITS/ 10 ML VIAL ONE (14:42)
[2022-03-02] MEDS ORDERED: Tuberculin PPD 0.1 ML VIAL I-DERMAL SCH (16:00)
[2022-03-03 04:42] LABS: #Eosinphils 0.3 thou/uL (0.0-0.7); #Lymphocytes 0.9 thou/uL (1.20-3.40); #Monocytes 0.5 thou/uL (0.11-0.59); #Neutrophils 2.2 thou/uL (1.40-6.50); %Basophils 0.8 % (0.0-1.0); %Eosinophils 7.2 % (0.0-10.0); %Lymphocytes 22.1 % (21.0-51.0); %Monocytes 13.7 % (0.0-10.0); %Neutrophils 56.1 % (42.0-75.0); Hemoglobin 7.5 g/dL (14.0-18.0); Mean Corpuscular HGB CONC 32.7 g/dL (32.0-36.0); Mean Corpuscular Hemoglobin 32.3 pg (27.0-31.0); Mean Corpuscular Volume 98.5 fl (78.0-98.0); Mean Platelet Volume 10.7 fL (7.4-10.4); Platelet Count 75 10x3/uL (130-400); RBC Distribution Width 19.2 % (11.5-14.5); Red Blood Cell (RBC) Count 2.33 mill/uL (4.70-6.10)
[2022-03-03 05:05] LABS: Phosphorus 5.1 mg/dL (2.3-4.7)
[2022-03-03 05:07] LABS: Anion Gap 13 mmol/L (10-20); BUN (Urea Nitrogen) 42 mg/dL (8.4-25.7); Calc. Creatinine Clearance 22 mL/min (70-130); Calcium 7.4 mg/dL (7.8-10.44); Carbon Dioxide 23 mmol/L (23-31); Chloride 108 mmol/L (98-107); Estimated GFR 14; Glucose 96 mg/dL (80-115); Magnesium 1.9 mg/dL (1.6-2.6); Potassium 4.1 mmol/L (3.5-5.1); Sodium 140 mmol/L (136-145)
[2022-03-03] MEDS: Lorazepam 1 MG TAB PO SCH ×3 (06:03→17:55)
[2022-03-03] MEDS: Multivit, Therapeutic 1 TAB PO SCH (09:33)
[2022-03-03] MEDS: Folic Acid 1 MG TAB PO SCH (09:34)
[2022-03-03] MEDS: Thiamine HCl 200 MG/2 ML VIAL SLOW IVP SCH (09:34)
[2022-03-03] MEDS ORDERED: Lorazepam 1 MG TAB PO PRN (09:48)
[2022-03-03] MEDS: Spironolactone 25 MG TAB PO SCH (12:48)
[2022-03-03] MEDS: Furosemide 20 MG TAB PO SCH (12:48)
[2022-03-03] MEDS ORDERED: Heparin 10,000 UNITS/ 10 ML VIAL ONE (14:38)
[2022-03-04] MEDS: Lorazepam 1 MG TAB PO SCH ×3 (00:37→12:07)
[2022-03-04 04:48] LABS: Hemoglobin 7.5 g/dL (14.0-18.0); Mean Corpuscular HGB CONC 32.6 g/dL (32.0-36.0); Mean Corpuscular Hemoglobin 32.4 pg (27.0-31.0); Mean Corpuscular Volume 99.5 fl (78.0-98.0); Platelet Count 73 10x3/uL (130-400); RBC Distribution Width 18.8 % (11.5-14.5); White Blood Cell (WBC) Count 4.2 10x3/uL (4.8-10.8)
[2022-03-04 05:04] LABS: Anion Gap 12 mmol/L (10-20); BUN (Urea Nitrogen) 28 mg/dL (8.4-25.7); Calc. Creatinine Clearance 24 mL/min (70-130); Calcium 7.6 mg/dL (7.8-10.44); Carbon Dioxide 25 mmol/L (23-31); Chloride 104 mmol/L (98-107); Estimated GFR 16; Glucose 85 mg/dL (80-115); Sodium 137 mmol/L (136-145)
[2022-03-04 05:49] LABS: Anisocytosis SLIGHT = 6-15 cells (100X) (0-5/hpf); Band 2 % (5-11); Eosinophils 11 % (0-10); Lymphocytes 16 % (21-51); MDiff Complete? YES; Macrocytosis SLIGHT = 6-15 cells (100X) (0-5/hpf); Monocytes 12 % (0-10); Neutrophil 58 % (42-75); Ovalocytes SLIGHT = 2-5 cells (100X) (0-1/hpf); Platelet Morphology Comment Appears Decreased
[2022-03-04] MEDS: Furosemide 20 MG TAB PO SCH (09:10)
[2022-03-04] MEDS: Multivit, Therapeutic 1 TAB PO SCH (09:10)
[2022-03-04] MEDS: Folic Acid 1 MG TAB PO SCH (09:10)
[2022-03-04] MEDS: Spironolactone 25 MG TAB PO SCH (09:10)
[2022-03-04] MEDS ORDERED: Lorazepam 1 MG TAB PO PRN (09:48)
[2022-03-04] MEDS: Thiamine HCl 200 MG/2 ML VIAL SLOW IVP SCH (10:23)
[2022-03-04] MEDS: Epoetin (ESRD) 10,000 UNITS/ML VIAL SC SCH (10:24)
[2022-03-04] MEDS ORDERED: Spironolactone 25 MG TAB PO SCH (10:30)
[2022-03-04] MEDS ORDERED: Lorazepam 0.5 MG TAB PO SCH (18:00)
[2022-03-05 03:35] LABS: INR-International Normal Ratio 1.2; Prothrombin Time 15.6 sec (12.0-14.7)
[2022-03-05 03:45] LABS: ALT (SGPT) 14 U/L (8-55); AST (SGOT) 33 U/L (5-34); Albumin 2.1 g/dL (3.4-4.8); Alkaline Phosphatase 160 U/L (40-110); Anion Gap 13 mmol/L (10-20); BUN (Urea Nitrogen) 36 mg/dL (8.4-25.7); Bilirubin, Total 1.5 mg/dL (0.2-1.2); Calc. Creatinine Clearance 18 mL/min (70-130); Carbon Dioxide 24 mmol/L (23-31); Chloride 106 mmol/L (98-107); Estimated GFR 11; Globulin 3.7 g/dL (2.4-3.5); Glucose 127 mg/dL (80-115); Magnesium 2.2 mg/dL (1.6-2.6); Phosphorus 5.7 mg/dL (2.3-4.7); Potassium 4.1 mmol/L (3.5-5.1); Protein, Total 5.8 g/dL (5.8-8.1); Sodium 139 mmol/L (136-145)
[2022-03-05 05:20] LABS: Anisocytosis SLIGHT = 6-15 cells (100X) (0-5/hpf); Band 6 % (5-11); Eosinophils 7 % (0-10); Hemoglobin 7.7 g/dL (14.0-18.0); Lymphocytes 24 % (21-51); MDiff Complete? YES; Mean Corpuscular HGB CONC 32.2 g/dL (32.0-36.0); Mean Corpuscular Hemoglobin 31.9 pg (27.0-31.0); Mean Corpuscular Volume 98.9 fl (78.0-98.0); Mean Platelet Volume 5.3 fL (7.4-10.4); Monocytes 5 % (0-10); Neutrophil 58 % (42-75); Ovalocytes SLIGHT = 2-5 cells (100X) (0-1/hpf); Platelet Count 67 10x3/uL (130-400); Platelet Morphology Comment Appears Decreased; RBC Distribution Width 18.8 % (11.5-14.5); Red Blood Cell (RBC) Count 2.41 mill/uL (4.70-6.10); White Blood Cell (WBC) Count 4.2 10x3/uL (4.8-10.8)
[2022-03-05] MEDS ORDERED: READ PPD TEST SITE PO SCH (09:00)
[2022-03-05] MEDS ORDERED: Rifaximin 550 MG TAB PO SCH (09:30)
[2022-03-05] MEDS ORDERED: Lorazepam 0.5 MG TAB PO PRN (09:48)
[2022-03-05] MEDS: Spironolactone 25 MG TAB PO SCH ×2 (10:54→14:25)
[2022-03-05] MEDS: Multivit, Therapeutic 1 TAB PO SCH ×2 (10:55→14:25)
[2022-03-05] MEDS: Furosemide 20 MG TAB PO SCH ×2 (10:55→14:25)
[2022-03-05] MEDS: Thiamine 100 MG TAB PO SCH ×2 (10:55→14:26)
[2022-03-05] MEDS: Folic Acid 1 MG TAB PO SCH ×2 (10:55→14:25)
[2022-03-05] MEDS ORDERED: Lactulose 10 GM/15 ML Oral Solution PO SCH (13:00)
[2022-03-05] MEDS: Lactulose 10 GM/15 ML Oral Solution PR SCH ×2 (14:24→23:23)
[2022-03-05] MEDS ORDERED: Haloperidol Lactate 5 MG/ML VIAL IM SCH (14:45)
[2022-03-05] MEDS ORDERED: Lorazepam 2 MG/ML VIAL SLOW IVP SCH (17:15)
[2022-03-05] MEDS: Rifaximin 550 MG TAB PO SCH (22:51)
[2022-03-06] MEDS ORDERED: Lorazepam 2 MG/ML VIAL SLOW IVP SCH (02:00)
[2022-03-06 03:40] LABS: #Eosinphils 0.2 thou/uL (0.0-0.7); #Lymphocytes 0.8 thou/uL (1.20-3.40); #Monocytes 0.7 thou/uL (0.11-0.59); %Basophils 0.8 % (0.0-1.0); %Eosinophils 2.9 % (0.0-10.0); %Lymphocytes 13.7 % (21.0-51.0); %Monocytes 12.2 % (0.0-10.0); %Neutrophils 70.5 % (42.0-75.0); Hemoglobin 8.4 g/dL (14.0-18.0); Mean Corpuscular HGB CONC 31.8 g/dL (32.0-36.0); Mean Corpuscular Hemoglobin 31.3 pg (27.0-31.0); Mean Corpuscular Volume 98.6 fl (78.0-98.0); Mean Platelet Volume 10.7 fL (7.4-10.4); Platelet Count 91 10x3/uL (130-400); RBC Distribution Width 18.7 % (11.5-14.5); Red Blood Cell (RBC) Count 2.66 mill/uL (4.70-6.10); White Blood Cell (WBC) Count 5.7 10x3/uL (4.8-10.8)
[2022-03-06 04:13] LABS: ALT (SGPT) 15 U/L (8-55); AST (SGOT) 37 U/L (5-34); Albumin 2.4 g/dL (3.4-4.8); Alkaline Phosphatase 158 U/L (40-110); Anion Gap 17 mmol/L (10-20); BUN (Urea Nitrogen) 17 mg/dL (8.4-25.7); Calc. Creatinine Clearance 24 mL/min (70-130); Calcium 8.7 mg/dL (7.8-10.44); Carbon Dioxide 25 mmol/L (23-31); Chloride 101 mmol/L (98-107); Estimated GFR 18; Globulin 4.1 g/dL (2.4-3.5); Glucose 117 mg/dL (80-115); Potassium 3.9 mmol/L (3.5-5.1); Protein, Total 6.5 g/dL (5.8-8.1); Sodium 139 mmol/L (136-145)
[2022-03-06 06:38] LABS: Bilirubin, Total 2.5 mg/dL (0.2-1.2)
[2022-03-06] MEDS: Lactulose 10 GM/15 ML Oral Solution PR SCH (08:02)
[2022-03-06] MEDS: Epoetin (ESRD) 10,000 UNITS/ML VIAL SC SCH (08:34)
[2022-03-06] MEDS: Furosemide 20 MG TAB PO SCH (08:35)
[2022-03-06] MEDS: Folic Acid 1 MG TAB PO SCH (08:41)
[2022-03-06] MEDS: Spironolactone 25 MG TAB PO SCH (08:42)
[2022-03-06] MEDS: Multivit, Therapeutic 1 TAB PO SCH (08:43)
[2022-03-06] MEDS: Rifaximin 550 MG TAB PO SCH ×2 (08:43→21:39)
[2022-03-06] MEDS: Thiamine 100 MG TAB PO SCH (08:43)
[2022-03-06] MEDS ORDERED: Amlodipine 5 MG TAB PO SCH (13:00)
[2022-03-06] MEDS: Amlodipine 5 MG TAB PO SCH (14:08)
[2022-03-07] MEDS: Melatonin 3 MG TAB PO PRN (00:22)
[2022-03-07 04:35] LABS: ALT (SGPT) 13 U/L (8-55); AST (SGOT) 35 U/L (5-34); Alkaline Phosphatase 132 U/L (40-110); Anion Gap 13 mmol/L (10-20); BUN (Urea Nitrogen) 25 mg/dL (8.4-25.7); Bilirubin, Total 1.6 mg/dL (0.2-1.2); Calc. Creatinine Clearance 15 mL/min (70-130); Calcium 8.1 mg/dL (7.8-10.44); Carbon Dioxide 27 mmol/L (23-31); Chloride 104 mmol/L (98-107); Estimated GFR 11; Globulin 3.5 g/dL (2.4-3.5); Glucose 135 mg/dL (80-115); Potassium 3.5 mmol/L (3.5-5.1); Protein, Total 5.5 g/dL (5.8-8.1); Sodium 140 mmol/L (136-145)
[2022-03-07] MEDS: Folic Acid 1 MG TAB PO SCH (10:03)
[2022-03-07] MEDS: Multivit, Therapeutic 1 TAB PO SCH (10:04)
[2022-03-07] MEDS: Spironolactone 25 MG TAB PO SCH (10:04)
[2022-03-07] MEDS: Thiamine 100 MG TAB PO SCH (10:04)
[2022-03-07] MEDS: Amlodipine 5 MG TAB PO SCH (10:05)
[2022-03-07] MEDS: Furosemide 20 MG TAB PO SCH (10:06)
[2022-03-07] MEDS: Rifaximin 550 MG TAB PO SCH ×2 (10:06→21:44)
[2022-03-07 10:33] LABS: Bacteria/HPF 2+ HPF (None Seen); Bilirubin Negative (Negative); Blood, Urine 1+ (Negative); CAUTI Indications for Culture Alt mental st,lethar; Clarity Clear (Clear); Glucose, Urine (Dipstick) 30 mg/dL (Negative); Ketone, Urine Negative (Negative); Leukocyte Negative Leu/uL (Negative); Nitrite Negative (Negative); Protein, Urine (Dipstick) 300 mg/dL (Neg-Trace); Specific Gravity, Urine 1.013 (1.002-1.036); Squamous Epithelial 0-3 HPF (0-3); WBC/HPF 0-3 HPF (0-3); pH, Urine 7.5 (5.0-9.0)
[2022-03-07 10:35] LABS: Urine Culture Reflex No No
[2022-03-08] MEDS ORDERED: traZODone HCl 50 MG TAB PO SCH (01:00)
[2022-03-08] MEDS: Acetaminophen 500 MG TAB PO PRN ×2 (04:59→22:07)
[2022-03-08 06:17] LABS: Anion Gap 14 mmol/L (10-20); BUN (Urea Nitrogen) 28 mg/dL (8.4-25.7); Calc. Creatinine Clearance 12 mL/min (70-130); Calcium 7.8 mg/dL (7.8-10.44); Carbon Dioxide 25 mmol/L (23-31); Chloride 99 mmol/L (98-107); Estimated GFR 9; Glucose 167 mg/dL (80-115); Potassium 3.7 mmol/L (3.5-5.1); Sodium 134 mmol/L (136-145)
[2022-03-08] MEDS ORDERED: Ergocalciferol 1.25 MG(50,000 UNITS) CAP PO SCH (09:00)
[2022-03-08] MEDS: Furosemide 20 MG TAB PO SCH (09:07)
[2022-03-08] MEDS: Folic Acid 1 MG TAB PO SCH (09:08)
[2022-03-08] MEDS: Multivit, Therapeutic 1 TAB PO SCH (09:08)
[2022-03-08] MEDS: Spironolactone 25 MG TAB PO SCH (09:08)
[2022-03-08] MEDS: Thiamine 100 MG TAB PO SCH (09:08)
[2022-03-08] MEDS: Amlodipine 5 MG TAB PO SCH (09:09)
[2022-03-08] MEDS: Rifaximin 550 MG TAB PO SCH ×2 (09:09→22:08)
[2022-03-08] MEDS ORDERED: Heparin 10,000 UNITS/ 10 ML VIAL ONE (10:25)
[2022-03-08 11:03] VITALS: BMI 25.0
[2022-03-08] MEDS: Melatonin 3 MG TAB PO PRN (22:07)
[2022-03-09 04:21] LABS: ALT (SGPT) 13 U/L (8-55); AST (SGOT) 29 U/L (5-34); Alkaline Phosphatase 149 U/L (40-110); Anion Gap 11 mmol/L (10-20); BUN (Urea Nitrogen) 18 mg/dL (8.4-25.7); Bilirubin, Total 0.9 mg/dL (0.2-1.2); Calc. Creatinine Clearance 18 mL/min (70-130); Calcium 7.3 mg/dL (7.8-10.44); Carbon Dioxide 26 mmol/L (23-31); Chloride 103 mmol/L (98-107); Estimated GFR 13; Globulin 3.5 g/dL (2.4-3.5); Glucose 130 mg/dL (80-115); Potassium 4.2 mmol/L (3.5-5.1); Protein, Total 5.5 g/dL (5.8-8.1); Sodium 136 mmol/L (136-145)
[2022-03-09] MEDS: Acetaminophen 500 MG TAB PO PRN (04:29)
[2022-03-09] MEDS: Thiamine 100 MG TAB PO SCH (09:50)
[2022-03-09] MEDS: Multivit, Therapeutic 1 TAB PO SCH (09:50)
[2022-03-09] MEDS: Spironolactone 25 MG TAB PO SCH (09:50)
[2022-03-09] MEDS: Folic Acid 1 MG TAB PO SCH (09:51)
[2022-03-09] MEDS: Amlodipine 5 MG TAB PO SCH (09:51)
[2022-03-09] MEDS: Rifaximin 550 MG TAB PO SCH (09:52)
[2022-03-09] MEDS: Furosemide 20 MG TAB PO SCH (09:52)
[2022-03-09 13:18] VITALS: TEMP 97.7
[2022-03-09 13:33] VITALS: BP 115/57
[2022-03-09] MEDS: Epoetin (ESRD) 10,000 UNITS/ML VIAL SC SCH (17:33)
== END 2022-03-09 18:04 | disposition home or self-care (01) | DRG 432 ==
LOC: ERS 03:42 → ERHOLD 05:39 → 2NO 20:54
PROVIDERS: ADMIT Family Medicine; ATTEND Family Medicine
PROC: 0W993ZZ Drainage of Right Pleural Cavity, Percutaneous Approach (ICD-10-PCS; principal; 2022-03-01)
DX: K70.31 Alcoholic cirrhosis of liver with ascites (principal); Z20.822 Contact with and (suspected) exposure to COVID-19; J96.01 Acute respiratory failure with hypoxia; N18.6 End stage renal disease; J94.8 Other specified pleural conditions; J91.8 Pleural effusion in other conditions classified elsewhere; E87.20 Acidosis, unspecified; I50.32 Chronic diastolic (congestive) heart failure; N17.9 Acute kidney failure, unspecified; F14.13 Cocaine abuse, unspecified with withdrawal; F15.13 Other stimulant abuse with withdrawal; K76.82 Hepatic encephalopathy; D63.1 Anemia in chronic kidney disease; E87.70 Fluid overload, unspecified; R77.8 Other specified abnormalities of plasma proteins; Z91.15 Patient's noncompliance with renal dialysis; Z99.2 Dependence on renal dialysis; Z79.899 Other long term (current) drug therapy
CPT/HCPCS: 32555; 36415; 36416; 49083; 71045; 76604; 80048; 80053; 80076; 80306; 81001; 82140; 82553; 83735; 83880; 84100; 84484; 85025; 85060; 85610; 85730; 86580; 86704; 87070; 87205; 87811; 89051; 90935; 93005; G0257; J1630; J1644; J1940; J2001; J2060; J3411; Q4081; U0003; U0005

== ENCOUNTER 2022-03-10 15:56 | Inpatient (IN) | payer MEDICARE ==
[~2022-03-10 15:56] MED LIST: Iopamidol-370 76% 500 ML 1 ML ONE
[2022-03-10 16:53] LABS: Bacteria/HPF None Seen HPF (None Seen); Bilirubin Negative (Negative); Blood, Urine 1+ (Negative); Clarity Clear (Clear); Glucose, Urine (Dipstick) 50 mg/dL (Negative); Ketone, Urine Negative (Negative); Leukocyte Negative Leu/uL (Negative); Nitrite Negative (Negative); Protein, Urine (Dipstick) 300 mg/dL (Neg-Trace); Specific Gravity, Urine 1.014 (1.002-1.036); Squamous Epithelial None Seen HPF (0-3); Urobilinogen Normal mg/dL (Less than 2); WBC/HPF 0-3 HPF (0-3); pH, Urine 7.5 (5.0-9.0)
[2022-03-10 16:58] LABS: INR-International Normal Ratio 1.2; Prothrombin Time 15.4 sec (12.0-14.7)
[2022-03-10 17:06] LABS: ALT (SGPT) 17 U/L (8-55); AST (SGOT) 28 U/L (5-34); Albumin 2.3 g/dL (3.4-4.8); Alkaline Phosphatase 171 U/L (40-110); Anion Gap 20 mmol/L (10-20); BUN (Urea Nitrogen) 31 mg/dL (8.4-25.7); Calc. Creatinine Clearance 0 mL/min (70-130); Calcium 7.4 mg/dL (7.8-10.44); Carbon Dioxide 19 mmol/L (23-31); Chloride 104 mmol/L (98-107); Estimated GFR 8; Globulin 3.9 g/dL (2.4-3.5); Glucose 132 mg/dL (80-115); PTT Less than 17.0 sec (22.9-36.1); Potassium 4.7 mmol/L (3.5-5.1); Protein, Total 6.2 g/dL (5.8-8.1); Sodium 138 mmol/L (136-145)
[2022-03-10 17:08] LABS: #Eosinphils 0.2 thou/uL (0.0-0.7); #Lymphocytes 0.6 thou/uL (1.20-3.40); #Monocytes 0.5 thou/uL (0.11-0.59); #Neutrophils 2.9 thou/uL (1.40-6.50); %Eosinophils 3.6 % (0.0-10.0); %Monocytes 12.9 % (0.0-10.0); %Neutrophils 69.5 % (42.0-75.0); Mean Corpuscular HGB CONC 31.4 g/dL (32.0-36.0); Mean Corpuscular Hemoglobin 30.9 pg (27.0-31.0); Mean Corpuscular Volume 98.6 fl (78.0-98.0); Platelet Count 106 10x3/uL (130-400); RBC Distribution Width 17.6 % (11.5-14.5); White Blood Cell (WBC) Count 4.2 10x3/uL (4.8-10.8)
[2022-03-10 19:51] LABS: Lactic Acid 1.3 mmol/L (0.5-2.2)
[2022-03-11] MEDS: Rifaximin 550 MG TAB PO SCH ×3 (02:56→21:28)
[2022-03-11 04:55] LABS: #Basophils 0.1 thou/uL (0.0-0.2); #Eosinphils 0.3 thou/uL (0.0-0.7); #Lymphocytes 1.4 thou/uL (1.20-3.40); #Monocytes 0.8 thou/uL (0.11-0.59); #Neutrophils 3.1 thou/uL (1.40-6.50); %Basophils 1.2 % (0.0-1.0); %Eosinophils 5.5 % (0.0-10.0); %Lymphocytes 24.7 % (21.0-51.0); %Monocytes 14.4 % (0.0-10.0); %Neutrophils 54.2 % (42.0-75.0); Hemoglobin 9.5 g/dL (14.0-18.0); Mean Corpuscular HGB CONC 31.9 g/dL (32.0-36.0); Mean Corpuscular Hemoglobin 31.7 pg (27.0-31.0); Mean Corpuscular Volume 99.5 fl (78.0-98.0); Mean Platelet Volume 9.9 fL (7.4-10.4); Platelet Count 109 10x3/uL (130-400); RBC Distribution Width 17.8 % (11.5-14.5); White Blood Cell (WBC) Count 5.7 10x3/uL (4.8-10.8)
[2022-03-11 05:05] LABS: Lactic Acid 1.9 mmol/L (0.5-2.2)
[2022-03-11 05:11] LABS: ALT (SGPT) 14 U/L (8-55); AST (SGOT) 24 U/L (5-34); Albumin 2.2 g/dL (3.4-4.8); Alkaline Phosphatase 136 U/L (40-110); Anion Gap 17 mmol/L (10-20); BUN (Urea Nitrogen) 35 mg/dL (8.4-25.7); Bilirubin, Total 1.2 mg/dL (0.2-1.2); Calc. Creatinine Clearance 0 mL/min (70-130); Calcium 7.5 mg/dL (7.8-10.44); Carbon Dioxide 20 mmol/L (23-31); Chloride 107 mmol/L (98-107); Estimated GFR 8; Globulin 3.7 g/dL (2.4-3.5); Glucose 95 mg/dL (80-115); Potassium 4.6 mmol/L (3.5-5.1); Protein, Total 5.9 g/dL (5.8-8.1); Sodium 139 mmol/L (136-145)
[2022-03-11] MEDS ORDERED: Thiamine 100 MG TAB ONE (08:24)
[2022-03-11] MEDS ORDERED: Amlodipine 5 MG TAB ONE (08:24)
[2022-03-11] MEDS ORDERED: Folic Acid 1 MG TAB ONE (08:24)
[2022-03-11 09:22] LABS: Amphetamine Not Detected (NotDetected); Barbiturates Screen Not Detected (NotDetected); Benzodiazepine Screen Detected (NotDetected); Cocaine Metabolite Screen Not Detected (NotDetected); Methadone Not Detected (NotDetected); Methamphetamine Not Detected (NotDetected); Opiate Screen Not Detected (NotDetected); Oxycodone Screen Not Detected (NotDetected); Phencyclidine (PCP) Not Detected (NotDetected); THC/Cannabinoid Screen Not Detected (NotDetected); Tricyclic Screen Not Detected (NotDetected)
[2022-03-11] MEDS: Amlodipine 5 MG TAB PO SCH (09:22)
[2022-03-11] MEDS: Thiamine 100 MG TAB PO SCH (09:23)
[2022-03-11] MEDS: Folic Acid 1 MG TAB PO SCH (09:23)
[2022-03-11] MEDS: Ergocalciferol 1.25 MG(50,000 UNITS) CAP PO SCH (09:23)
[2022-03-12 09:27] LABS: #Eosinphils 0.3 thou/uL (0.0-0.7); #Monocytes 0.6 thou/uL (0.11-0.59); #Neutrophils 2.5 thou/uL (1.40-6.50); %Basophils 0.9 % (0.0-1.0); %Eosinophils 6.6 % (0.0-10.0); %Monocytes 13.8 % (0.0-10.0); %Neutrophils 56.7 % (42.0-75.0); Hemoglobin 8.8 g/dL (14.0-18.0); Mean Corpuscular HGB CONC 33.2 g/dL (32.0-36.0); Mean Corpuscular Hemoglobin 32.2 pg (27.0-31.0); Mean Corpuscular Volume 97.1 fl (78.0-98.0); Mean Platelet Volume 9.5 fL (7.4-10.4); Platelet Count 100 10x3/uL (130-400); RBC Distribution Width 17.6 % (11.5-14.5); Red Blood Cell (RBC) Count 2.75 mill/uL (4.70-6.10); White Blood Cell (WBC) Count 4.3 10x3/uL (4.8-10.8)
[2022-03-12 09:46] LABS: ALT (SGPT) 14 U/L (8-55); AST (SGOT) 22 U/L (5-34); Albumin 2.2 g/dL (3.4-4.8); Alkaline Phosphatase 126 U/L (40-110); Anion Gap 17 mmol/L (10-20); BUN (Urea Nitrogen) 42 mg/dL (8.4-25.7); Bilirubin, Total 1.4 mg/dL (0.2-1.2); Calc. Creatinine Clearance 0 mL/min (70-130); Calcium 8.1 mg/dL (7.8-10.44); Carbon Dioxide 18 mmol/L (23-31); Chloride 107 mmol/L (98-107); Estimated GFR 7; Globulin 3.9 g/dL (2.4-3.5); Glucose 106 mg/dL (80-115); Potassium 4.4 mmol/L (3.5-5.1); Protein, Total 6.1 g/dL (5.8-8.1); Sodium 138 mmol/L (136-145)
[2022-03-12] MEDS: Amlodipine 5 MG TAB PO SCH (11:37)
[2022-03-12] MEDS: Thiamine 100 MG TAB PO SCH (11:37)
[2022-03-12] MEDS: Rifaximin 550 MG TAB PO SCH ×2 (11:37→21:37)
[2022-03-12] MEDS: Folic Acid 1 MG TAB PO SCH (11:38)
[2022-03-12] MEDS ORDERED: Heparin 10,000 UNITS/ 10 ML VIAL ONE (12:19)
[2022-03-12] MEDS ORDERED: Epoetin (ESRD) 10,000 UNITS/ML VIAL SC SCH (13:00)
[2022-03-12] MEDS: Epoetin (ESRD) 10,000 UNITS/ML VIAL SC SCH (21:38)
[2022-03-13 04:54] LABS: Hemoglobin 9.4 g/dL (14.0-18.0); Mean Corpuscular HGB CONC 32.8 g/dL (32.0-36.0); Mean Corpuscular Hemoglobin 31.7 pg (27.0-31.0); Mean Corpuscular Volume 96.6 fl (78.0-98.0); Platelet Count 116 10x3/uL (130-400); RBC Distribution Width 17.5 % (11.5-14.5); Red Blood Cell (RBC) Count 2.97 mill/uL (4.70-6.10); White Blood Cell (WBC) Count 4.8 10x3/uL (4.8-10.8)
[2022-03-13 05:13] LABS: ALT (SGPT) 15 U/L (8-55); AST (SGOT) 26 U/L (5-34); Albumin 2.3 g/dL (3.4-4.8); Alkaline Phosphatase 137 U/L (40-110); Anion Gap 16 mmol/L (10-20); BUN (Urea Nitrogen) 22 mg/dL (8.4-25.7); Bilirubin, Total 1.6 mg/dL (0.2-1.2); Calc. Creatinine Clearance 0 mL/min (70-130); Calcium 8.1 mg/dL (7.8-10.44); Carbon Dioxide 22 mmol/L (23-31); Chloride 103 mmol/L (98-107); Estimated GFR 11; Globulin 4.1 g/dL (2.4-3.5); Glucose 108 mg/dL (80-115); Potassium 4.1 mmol/L (3.5-5.1); Protein, Total 6.4 g/dL (5.8-8.1); Sodium 137 mmol/L (136-145)
[2022-03-13 05:39] LABS: Band 2 % (5-11); Eosinophils 4 % (0-10); Hypochromia SLIGHT = 6-15 cells (100X) (0-5/hpf); Lymphocytes 24 % (21-51); MDiff Complete? YES; Metamyelocyte 1 % (0-0); Monocytes 13 % (0-10); Neutrophil 55 % (42-75); Nucleated RBC 2 % (0); Platelet Morphology Comment Appears Decreased; Reactive Lymphocytes 1 % (0-10)
[2022-03-13] MEDS: Rifaximin 550 MG TAB PO SCH ×2 (10:09→22:15)
[2022-03-13] MEDS: Amlodipine 5 MG TAB PO SCH (10:09)
[2022-03-13] MEDS: Folic Acid 1 MG TAB PO SCH (10:09)
[2022-03-13] MEDS: Thiamine 100 MG TAB PO SCH (10:10)
[2022-03-14 04:02] LABS: Anisocytosis SLIGHT = 6-15 cells (100X) (0-5/hpf); Eosinophils 11 % (0-10); Hemoglobin 8.6 g/dL (14.0-18.0); Lymphocytes 30 % (21-51); MDiff Complete? YES; Mean Corpuscular HGB CONC 34.4 g/dL (32.0-36.0); Mean Corpuscular Volume 96.1 fl (78.0-98.0); Mean Platelet Volume 10.2 fL (7.4-10.4); Monocytes 10 % (0-10); Neutrophil 49 % (42-75); Platelet Count 88 10x3/uL (130-400); Platelet Morphology Comment Appears Decreased; RBC Distribution Width 16.9 % (11.5-14.5); Tear Drops SLIGHT = 2-5 cells (100X) (0-1/hpf); White Blood Cell (WBC) Count 4.8 10x3/uL (4.8-10.8)
[2022-03-14 06:28] LABS: ALT (SGPT) 14 U/L (8-55); AST (SGOT) 25 U/L (5-34); Albumin 2.1 g/dL (3.4-4.8); Alkaline Phosphatase 109 U/L (40-110); Anion Gap 15 mmol/L (10-20); BUN (Urea Nitrogen) 31 mg/dL (8.4-25.7); Bilirubin, Total 1.2 mg/dL (0.2-1.2); Calc. Creatinine Clearance 0 mL/min (70-130); Calcium 7.6 mg/dL (7.8-10.44); Carbon Dioxide 23 mmol/L (23-31); Chloride 102 mmol/L (98-107); Estimated GFR 8; Globulin 3.4 g/dL (2.4-3.5); Glucose 123 mg/dL (80-115); Magnesium 2.2 mg/dL (1.6-2.6); Potassium 3.7 mmol/L (3.5-5.1); Protein, Total 5.5 g/dL (5.8-8.1); Sodium 136 mmol/L (136-145)
[2022-03-14] MEDS: Rifaximin 550 MG TAB PO SCH ×2 (09:49→19:53)
[2022-03-14] MEDS: Amlodipine 5 MG TAB PO SCH (09:49)
[2022-03-14] MEDS: Thiamine 100 MG TAB PO SCH (09:49)
[2022-03-14] MEDS: Folic Acid 1 MG TAB PO SCH (09:49)
[2022-03-15 05:05] VITALS: BMI 24.0
[2022-03-15 05:07] LABS: Anion Gap 17 mmol/L (10-20); BUN (Urea Nitrogen) 35 mg/dL (8.4-25.7); Calc. Creatinine Clearance 10 mL/min (70-130); Calcium 7.9 mg/dL (7.8-10.44); Carbon Dioxide 19 mmol/L (23-31); Chloride 101 mmol/L (98-107); Estimated GFR 7; Glucose 140 mg/dL (80-115); Potassium 3.5 mmol/L (3.5-5.1); Sodium 133 mmol/L (136-145)
[2022-03-15 05:15] LABS: Mean Corpuscular HGB CONC 32.2 g/dL (32.0-36.0); Mean Corpuscular Hemoglobin 31.2 pg (27.0-31.0); Mean Corpuscular Volume 96.9 fl (78.0-98.0); Mean Platelet Volume 9.9 fL (7.4-10.4); Platelet Count 114 10x3/uL (130-400); RBC Distribution Width 16.6 % (11.5-14.5); Red Blood Cell (RBC) Count 2.89 mill/uL (4.70-6.10); White Blood Cell (WBC) Count 5.6 10x3/uL (4.8-10.8)
[2022-03-15 05:16] LABS: Band 4 % (5-11); Eosinophils 2 % (0-10); Hypochromia SLIGHT = 6-15 cells (100X) (0-5/hpf); Lymphocytes 14 % (21-51); MDiff Complete? YES; Monocytes 12 % (0-10); Neutrophil 67 % (42-75); Platelet Morphology Comment Appears Decreased; Reactive Lymphocytes 1 % (0-10)
[2022-03-15] MEDS ORDERED: Heparin 10,000 UNITS/ 10 ML VIAL ONE (12:24)
[2022-03-15] MEDS: Amlodipine 5 MG TAB PO SCH (15:37)
[2022-03-15] MEDS: Folic Acid 1 MG TAB PO SCH (15:38)
[2022-03-15] MEDS: Thiamine 100 MG TAB PO SCH (15:39)
[2022-03-15] MEDS: Rifaximin 550 MG TAB PO SCH ×2 (15:39→22:34)
[2022-03-16] MEDS: Melatonin 3 MG TAB PO PRN ×2 (01:27→23:08)
[2022-03-16 04:09] LABS: Hemoglobin 9.1 g/dL (14.0-18.0); Mean Corpuscular HGB CONC 33.2 g/dL (32.0-36.0); Mean Corpuscular Hemoglobin 32.4 pg (27.0-31.0); Mean Corpuscular Volume 97.6 fl (78.0-98.0); Mean Platelet Volume 10.3 fL (7.4-10.4); Platelet Count 98 10x3/uL (130-400); RBC Distribution Width 16.7 % (11.5-14.5); Red Blood Cell (RBC) Count 2.81 mill/uL (4.70-6.10); White Blood Cell (WBC) Count 4.4 10x3/uL (4.8-10.8)
[2022-03-16 04:27] LABS: ALT (SGPT) 16 U/L (8-55); AST (SGOT) 24 U/L (5-34); Albumin 2.1 g/dL (3.4-4.8); Alkaline Phosphatase 140 U/L (40-110); Anion Gap 12 mmol/L (10-20); BUN (Urea Nitrogen) 31 mg/dL (8.4-25.7); Calc. Creatinine Clearance 12 mL/min (70-130); Calcium 7.8 mg/dL (7.8-10.44); Carbon Dioxide 24 mmol/L (23-31); Chloride 104 mmol/L (98-107); Estimated GFR 9; Globulin 3.9 g/dL (2.4-3.5); Glucose 134 mg/dL (80-115); Magnesium 2.3 mg/dL (1.6-2.6); Potassium 3.9 mmol/L (3.5-5.1); Sodium 136 mmol/L (136-145)
[2022-03-16 04:50] LABS: Anisocytosis SLIGHT = 6-15 cells (100X) (0-5/hpf); Eosinophils 7 % (0-10); Lymphocytes 23 % (21-51); MDiff Complete? YES; Monocytes 10 % (0-10); Neutrophil 60 % (42-75); Platelet Morphology Comment Appears Decreased
[2022-03-16] MEDS: Folic Acid 1 MG TAB PO SCH (10:07)
[2022-03-16] MEDS: Amlodipine 5 MG TAB PO SCH (10:07)
[2022-03-16] MEDS: Thiamine 100 MG TAB PO SCH (10:08)
[2022-03-16] MEDS: Rifaximin 550 MG TAB PO SCH ×2 (10:08→21:10)
[2022-03-16] MEDS ORDERED: Acetaminophen 500 MG TAB PO SCH (22:45)
[2022-03-17] MEDS ORDERED: hydrOXYzine 25 MG TAB PO SCH (03:15)
[2022-03-17] MEDS ORDERED: Sterile Water 10 ML VIAL FS PRN (03:30)
[2022-03-17] MEDS ORDERED: OLANZapine 10 MG VIAL IM SCH (03:30)
[2022-03-17 04:45] LABS: Mean Corpuscular HGB CONC 32.6 g/dL (32.0-36.0); Mean Corpuscular Hemoglobin 31.4 pg (27.0-31.0); Mean Corpuscular Volume 96.5 fl (78.0-98.0); Mean Platelet Volume 9.9 fL (7.4-10.4); Platelet Count 107 10x3/uL (130-400); RBC Distribution Width 16.5 % (11.5-14.5); Red Blood Cell (RBC) Count 2.86 mill/uL (4.70-6.10); White Blood Cell (WBC) Count 5.2 10x3/uL (4.8-10.8)
[2022-03-17 04:56] LABS: ALT (SGPT) 13 U/L (8-55); AST (SGOT) 26 U/L (5-34); Albumin 2.2 g/dL (3.4-4.8); Alkaline Phosphatase 158 U/L (40-110); Anion Gap 14 mmol/L (10-20); BUN (Urea Nitrogen) 39 mg/dL (8.4-25.7); Bilirubin, Total 0.9 mg/dL (0.2-1.2); Calc. Creatinine Clearance 11 mL/min (70-130); Calcium 7.6 mg/dL (7.8-10.44); Carbon Dioxide 24 mmol/L (23-31); Chloride 102 mmol/L (98-107); Estimated GFR 7; Globulin 3.7 g/dL (2.4-3.5); Glucose 127 mg/dL (80-115); Magnesium 2.4 mg/dL (1.6-2.6); Potassium 4.2 mmol/L (3.5-5.1); Protein, Total 5.9 g/dL (5.8-8.1); Sodium 136 mmol/L (136-145)
[2022-03-17 05:19] LABS: Eosinophils 2 % (0-10); Hypochromia SLIGHT = 6-15 cells (100X) (0-5/hpf); Lymphocytes 28 % (21-51); MDiff Complete? YES; Monocytes 7 % (0-10); Neutrophil 62 % (42-75); Platelet Morphology Comment Appears Decreased; Reactive Lymphocytes 1 % (0-10)
[2022-03-17] MEDS: Thiamine 100 MG TAB PO SCH (09:49)
[2022-03-17] MEDS: Rifaximin 550 MG TAB PO SCH ×2 (09:49→19:56)
[2022-03-17] MEDS: Amlodipine 5 MG TAB PO SCH (09:49)
[2022-03-17] MEDS: Folic Acid 1 MG TAB PO SCH (09:49)
[2022-03-17] MEDS ORDERED: Heparin 10,000 UNITS/ 10 ML VIAL ONE (12:35)
[2022-03-18 04:19] LABS: #Eosinphils 0.2 thou/uL (0.0-0.7); #Lymphocytes 1.5 thou/uL (1.20-3.40); #Monocytes 0.7 thou/uL (0.11-0.59); #Neutrophils 2.6 thou/uL (1.40-6.50); %Basophils 0.8 % (0.0-1.0); %Eosinophils 4.7 % (0.0-10.0); %Lymphocytes 29.2 % (21.0-51.0); %Monocytes 14.6 % (0.0-10.0); %Neutrophils 50.7 % (42.0-75.0); Hemoglobin 9.2 g/dL (14.0-18.0); Mean Corpuscular HGB CONC 32.9 g/dL (32.0-36.0); Mean Corpuscular Hemoglobin 31.9 pg (27.0-31.0); Mean Corpuscular Volume 96.9 fl (78.0-98.0); Mean Platelet Volume 9.5 fL (7.4-10.4); Platelet Count 109 10x3/uL (130-400); RBC Distribution Width 16.5 % (11.5-14.5); Red Blood Cell (RBC) Count 2.88 mill/uL (4.70-6.10); White Blood Cell (WBC) Count 5.1 10x3/uL (4.8-10.8)
[2022-03-18] MEDS: Thiamine 100 MG TAB PO SCH (08:28)
[2022-03-18] MEDS: Folic Acid 1 MG TAB PO SCH (08:28)
[2022-03-18] MEDS: Amlodipine 5 MG TAB PO SCH (08:31)
[2022-03-18] MEDS: Rifaximin 550 MG TAB PO SCH ×2 (08:31→21:28)
[2022-03-18] MEDS: Ergocalciferol 1.25 MG(50,000 UNITS) CAP PO SCH (08:34)
[2022-03-19 09:30] LABS: #Eosinphils 0.4 thou/uL (0.0-0.7); #Lymphocytes 1.2 thou/uL (1.20-3.40); #Monocytes 0.7 thou/uL (0.11-0.59); #Neutrophils 2.4 thou/uL (1.40-6.50); %Basophils 0.9 % (0.0-1.0); %Eosinophils 8.2 % (0.0-10.0); %Lymphocytes 25.4 % (21.0-51.0); %Monocytes 14.6 % (0.0-10.0); Hemoglobin 8.4 g/dL (14.0-18.0); Mean Corpuscular HGB CONC 32.4 g/dL (32.0-36.0); Mean Corpuscular Hemoglobin 31.2 pg (27.0-31.0); Mean Corpuscular Volume 96.4 fl (78.0-98.0); Mean Platelet Volume 10.2 fL (7.4-10.4); Platelet Count 89 10x3/uL (130-400); RBC Distribution Width 16.2 % (11.5-14.5); Red Blood Cell (RBC) Count 2.68 mill/uL (4.70-6.10); White Blood Cell (WBC) Count 4.7 10x3/uL (4.8-10.8)
[2022-03-19 09:53] LABS: ALT (SGPT) 14 U/L (8-55); AST (SGOT) 20 U/L (5-34); Albumin 1.9 g/dL (3.4-4.8); Alkaline Phosphatase 150 U/L (40-110); Anion Gap 9 mmol/L (10-20); BUN (Urea Nitrogen) 24 mg/dL (8.4-25.7); Calc. Creatinine Clearance 20 mL/min (70-130); Calcium 7.5 mg/dL (7.8-10.44); Carbon Dioxide 28 mmol/L (23-31); Chloride 100 mmol/L (98-107); Estimated GFR 15; Globulin 3.8 g/dL (2.4-3.5); Glucose 115 mg/dL (80-115); Potassium 3.1 mmol/L (3.5-5.1); Protein, Total 5.7 g/dL (5.8-8.1); Sodium 134 mmol/L (136-145)
[2022-03-19] MEDS ORDERED: Heparin 10,000 UNITS/ 10 ML VIAL ONE (10:25)
[2022-03-19] MEDS ORDERED: Potassium Chloride 20 MEQ TAB PO SCH (11:00)
[2022-03-19] MEDS ORDERED: Iron Sucrose Complex 200 MG in Sodium Chloride 0.9% 100 ML IVPB SCH (12:00)
[2022-03-19] MEDS: Rifaximin 550 MG TAB PO SCH ×2 (13:38→23:31)
[2022-03-19] MEDS: Amlodipine 5 MG TAB PO SCH (13:38)
[2022-03-19] MEDS: Folic Acid 1 MG TAB PO SCH (13:38)
[2022-03-19] MEDS: Thiamine 100 MG TAB PO SCH (13:38)
[2022-03-19] MEDS: Melatonin 3 MG TAB PO PRN (23:31)
[2022-03-19] MEDS: Epoetin (ESRD) 10,000 UNITS/ML VIAL SC SCH (23:31)
[2022-03-20 06:45] LABS: ALT (SGPT) 14 U/L (8-55); AST (SGOT) 20 U/L (5-34); Albumin 1.8 g/dL (3.4-4.8); Alkaline Phosphatase 141 U/L (40-110); Anion Gap 11 mmol/L (10-20); BUN (Urea Nitrogen) 25 mg/dL (8.4-25.7); BUN/Creatinine Ratio 5.11; Calc. Creatinine Clearance 17 mL/min (70-130); Calcium 7.5 mg/dL (7.8-10.44); Carbon Dioxide 26 mmol/L (23-31); Chloride 102 mmol/L (98-107); Estimated GFR 13; Globulin 3.6 g/dL (2.4-3.5); Glucose 166 mg/dL (80-115); Phosphorus 4.8 mg/dL (2.3-4.7); Potassium 3.9 mmol/L (3.5-5.1); Protein, Total 5.4 g/dL (5.8-8.1); Sodium 135 mmol/L (136-145)
[2022-03-20 06:48] LABS: INR-International Normal Ratio 1.3; Prothrombin Time 16.3 sec (12.0-14.7)
[2022-03-20 08:01] LABS: Band 6 % (5-11); Eosinophils 3 % (0-10); Hemoglobin 8.4 g/dL (14.0-18.0); Lymphocytes 27 % (21-51); MDiff Complete? YES; Mean Corpuscular HGB CONC 33.5 g/dL (32.0-36.0); Mean Corpuscular Volume 95.6 fl (78.0-98.0); Mean Platelet Volume 10.1 fL (7.4-10.4); Monocytes 8 % (0-10); Neutrophil 56 % (42-75); Platelet Count 89 10x3/uL (130-400); Platelet Morphology Comment Appears Decreased; RBC Distribution Width 16.1 % (11.5-14.5); Red Blood Cell (RBC) Count 2.63 mill/uL (4.70-6.10); White Blood Cell (WBC) Count 4.8 10x3/uL (4.8-10.8)
[2022-03-20] MEDS: Rifaximin 550 MG TAB PO SCH ×2 (09:03→22:20)
[2022-03-20] MEDS: Thiamine 100 MG TAB PO SCH (09:03)
[2022-03-20] MEDS: Folic Acid 1 MG TAB PO SCH (09:03)
[2022-03-20] MEDS: Amlodipine 5 MG TAB PO SCH (09:03)
[2022-03-20] MEDS: Melatonin 3 MG TAB PO PRN (22:20)
[2022-03-21 07:04] LABS: Hemoglobin 8.6 g/dL (14.0-18.0); Mean Corpuscular HGB CONC 32.8 g/dL (32.0-36.0); Mean Corpuscular Hemoglobin 31.6 pg (27.0-31.0); Mean Corpuscular Volume 96.5 fl (78.0-98.0); Mean Platelet Volume 9.7 fL (7.4-10.4); Platelet Count 106 10x3/uL (130-400); White Blood Cell (WBC) Count 4.8 10x3/uL (4.8-10.8)
[2022-03-21 07:11] LABS: ALT (SGPT) 12 U/L (8-55); AST (SGOT) 28 U/L (5-34); Alkaline Phosphatase 172 U/L (40-110); Anion Gap 14 mmol/L (10-20); BUN (Urea Nitrogen) 30 mg/dL (8.4-25.7); Bilirubin, Total 0.8 mg/dL (0.2-1.2); Calc. Creatinine Clearance 13 mL/min (70-130); Calcium 7.3 mg/dL (7.8-10.44); Carbon Dioxide 21 mmol/L (23-31); Chloride 104 mmol/L (98-107); Estimated GFR 9; Globulin 3.7 g/dL (2.4-3.5); Glucose 128 mg/dL (80-115); Potassium 3.7 mmol/L (3.5-5.1); Protein, Total 5.7 g/dL (5.8-8.1); Sodium 135 mmol/L (136-145)
[2022-03-21 07:46] LABS: Band 4 % (5-11); Eosinophils 6 % (0-10); Lymphocytes 26 % (21-51); MDiff Complete? YES; Monocytes 10 % (0-10); Neutrophil 53 % (42-75); Platelet Morphology Comment Appears Decreased; RBC Morphology Normal; Reactive Lymphocytes 1 % (0-10)
[2022-03-21] MEDS: Rifaximin 550 MG TAB PO SCH ×4 (08:41→21:43)
[2022-03-21] MEDS: Folic Acid 1 MG TAB PO SCH (08:41)
[2022-03-21] MEDS: Amlodipine 5 MG TAB PO SCH (08:41)
[2022-03-21] MEDS: Thiamine 100 MG TAB PO SCH (08:41)
[2022-03-21] MEDS: Albumin 25% 25 GM/100 ML BOT IVPB SCH ×3 (08:41→21:44)
[2022-03-21] MEDS: Melatonin 3 MG TAB PO PRN (21:43)
[2022-03-22 07:20] LABS: #Eosinphils 0.2 thou/uL (0.0-0.7); #Monocytes 0.5 thou/uL (0.11-0.59); #Neutrophils 1.9 thou/uL (1.40-6.50); %Basophils 0.8 % (0.0-1.0); %Eosinophils 6.5 % (0.0-10.0); %Lymphocytes 27.1 % (21.0-51.0); %Monocytes 14.3 % (0.0-10.0); %Neutrophils 51.2 % (42.0-75.0); Hemoglobin 8.4 g/dL (14.0-18.0); Mean Corpuscular Hemoglobin 32.2 pg (27.0-31.0); Mean Corpuscular Volume 94.7 fl (78.0-98.0); Mean Platelet Volume 9.9 fL (7.4-10.4); Platelet Count 96 10x3/uL (130-400); RBC Distribution Width 15.7 % (11.5-14.5); Red Blood Cell (RBC) Count 2.61 mill/uL (4.70-6.10); White Blood Cell (WBC) Count 3.6 10x3/uL (4.8-10.8)
[2022-03-22 07:21] LABS: ALT (SGPT) 16 U/L (8-55); AST (SGOT) 19 U/L (5-34); Albumin 2.7 g/dL (3.4-4.8); Alkaline Phosphatase 157 U/L (40-110); Anion Gap 15 mmol/L (10-20); BUN (Urea Nitrogen) 46 mg/dL (8.4-25.7); Bilirubin, Total 1.1 mg/dL (0.2-1.2); Calc. Creatinine Clearance 11 mL/min (70-130); Carbon Dioxide 22 mmol/L (23-31); Chloride 101 mmol/L (98-107); Estimated GFR 7; Globulin 3.5 g/dL (2.4-3.5); Glucose 117 mg/dL (80-115); Potassium 3.8 mmol/L (3.5-5.1); Protein, Total 6.2 g/dL (5.8-8.1); Sodium 134 mmol/L (136-145)
[2022-03-22] MEDS ORDERED: Sterile Water 10 ML VIAL IVP SCH (10:15)
[2022-03-22] MEDS ORDERED: Activase 2 MG VIAL CATH SCH (10:15)
[2022-03-22] MEDS ORDERED: Heparin 10,000 UNITS/ 10 ML VIAL ONE (10:18)
[2022-03-22] MEDS: Thiamine 100 MG TAB PO SCH (13:15)
[2022-03-22] MEDS: Rifaximin 550 MG TAB PO SCH ×4 (13:15→22:39)
[2022-03-22] MEDS: Folic Acid 1 MG TAB PO SCH (13:15)
[2022-03-22] MEDS: Amlodipine 5 MG TAB PO SCH (13:15)
[2022-03-22] MEDS: Melatonin 3 MG TAB PO PRN (20:38)
[2022-03-23] MEDS: Thiamine 100 MG TAB PO SCH (08:14)
[2022-03-23] MEDS: Rifaximin 550 MG TAB PO SCH ×2 (08:14→20:52)
[2022-03-23] MEDS: Amlodipine 10 MG TAB PO SCH (08:14)
[2022-03-23] MEDS: Folic Acid 1 MG TAB PO SCH (08:14)
[2022-03-23] MEDS: Melatonin 3 MG TAB PO PRN (21:00)
[2022-03-24] MEDS: Rifaximin 550 MG TAB PO SCH ×2 (08:13→20:45)
[2022-03-24] MEDS: Folic Acid 1 MG TAB PO SCH (08:13)
[2022-03-24] MEDS: Amlodipine 10 MG TAB PO SCH (08:13)
[2022-03-24] MEDS: Thiamine 100 MG TAB PO SCH (08:14)
[2022-03-24] MEDS ORDERED: Heparin 10,000 UNITS/ 10 ML VIAL ONE (08:21)
[2022-03-24] MEDS ORDERED: Aspirin 325 MG TAB PO SCH (18:00)
[2022-03-24] MEDS: Melatonin 3 MG TAB PO PRN (20:45)
[2022-03-24] MEDS: Atorvastatin Calcium 40 MG TAB PO SCH (20:45)
[2022-03-25 05:51] LABS: #Basophils 0.1 thou/uL (0.0-0.2); #Eosinphils 0.2 thou/uL (0.0-0.7); #Lymphocytes 1.2 thou/uL (1.20-3.40); #Monocytes 0.6 thou/uL (0.11-0.59); %Basophils 1.5 % (0.0-1.0); %Eosinophils 5.3 % (0.0-10.0); %Lymphocytes 30.3 % (21.0-51.0); %Monocytes 13.6 % (0.0-10.0); %Neutrophils 49.3 % (42.0-75.0); Hemoglobin 8.6 g/dL (14.0-18.0); Mean Corpuscular Volume 93.9 fl (78.0-98.0); Mean Platelet Volume 9.1 fL (7.4-10.4); Platelet Count 118 10x3/uL (130-400); RBC Distribution Width 15.4 % (11.5-14.5); Red Blood Cell (RBC) Count 2.75 mill/uL (4.70-6.10)
[2022-03-25 06:05] LABS: Anion Gap 13 mmol/L (10-20); BUN (Urea Nitrogen) 23 mg/dL (8.4-25.7); Calc. Creatinine Clearance 18 mL/min (70-130); Calcium 8.1 mg/dL (7.8-10.44); Carbon Dioxide 25 mmol/L (23-31); Cardiac Risk 3.6 (Less than 4.5); Chloride 102 mmol/L (98-107); Cholesterol 138 mg/dl (< 200 Desired); Estimated GFR 13; Glucose 117 mg/dL (80-115); HDL Cholesterol 38 mg/dL (>60 Neg Risk); LDL Cholesterol, Calculated 91 mg/dL; Potassium 3.4 mmol/L (3.5-5.1); Sodium 137 mmol/L (136-145); Triglycerides 47 mg/dL (Less than 150)
[2022-03-25] MEDS: Amlodipine 10 MG TAB PO SCH (08:54)
[2022-03-25] MEDS: Carvedilol 3.125 MG TAB PO SCH ×2 (08:54→17:00)
[2022-03-25] MEDS: Thiamine 100 MG TAB PO SCH (08:55)
[2022-03-25] MEDS: Rifaximin 550 MG TAB PO SCH ×2 (08:55→20:25)
[2022-03-25] MEDS: Folic Acid 1 MG TAB PO SCH (08:55)
[2022-03-25] MEDS: Aspirin 81 mg Enteric Coated Tablet PO SCH (09:02)
[2022-03-25 11:02] LABS: Syphilis Antibody Index 1.84 S/CO (<1.00 Non-Reactive)
[2022-03-25] MEDS: Ergocalciferol 1.25 MG(50,000 UNITS) CAP PO SCH (12:12)
[2022-03-25 14:11] LABS: Syphilis Antibody INDETERMINATE (Nonreactive)
[2022-03-25] MEDS: Atorvastatin Calcium 40 MG TAB PO SCH (20:25)
[2022-03-26] MEDS ORDERED: Heparin 10,000 UNITS/ 10 ML VIAL ONE (08:27)
[2022-03-26] MEDS: Carvedilol 3.125 MG TAB PO SCH ×2 (13:25→17:02)
[2022-03-26] MEDS: Amlodipine 10 MG TAB PO SCH ×2 (13:25→13:44)
[2022-03-26] MEDS: Folic Acid 1 MG TAB PO SCH (13:26)
[2022-03-26] MEDS: Rifaximin 550 MG TAB PO SCH ×2 (13:26→21:08)
[2022-03-26] MEDS: Thiamine 100 MG TAB PO SCH (13:26)
[2022-03-26] MEDS: Aspirin 81 mg Enteric Coated Tablet PO SCH ×2 (13:26→13:44)
[2022-03-26] MEDS: Atorvastatin Calcium 40 MG TAB PO SCH (21:08)
[2022-03-26] MEDS: Melatonin 3 MG TAB PO PRN (21:08)
[2022-03-26] MEDS: Epoetin (ESRD) 10,000 UNITS/ML VIAL SC SCH (21:08)
[2022-03-27] MEDS: Carvedilol 3.125 MG TAB PO SCH ×2 (08:22→17:50)
[2022-03-27] MEDS: Amlodipine 10 MG TAB PO SCH (08:22)
[2022-03-27] MEDS: Thiamine 100 MG TAB PO SCH (08:23)
[2022-03-27] MEDS: Aspirin 81 mg Enteric Coated Tablet PO SCH (08:23)
[2022-03-27] MEDS: Folic Acid 1 MG TAB PO SCH (08:23)
[2022-03-27] MEDS: Rifaximin 550 MG TAB PO SCH ×2 (08:23→21:32)
[2022-03-27 11:45] LABS: #Basophils 0.1 thou/uL (0.0-0.2); #Eosinphils 0.2 thou/uL (0.0-0.7); #Lymphocytes 1.1 thou/uL (1.20-3.40); #Monocytes 0.7 thou/uL (0.11-0.59); #Neutrophils 3.1 thou/uL (1.40-6.50); %Basophils 1.1 % (0.0-1.0); %Lymphocytes 20.8 % (21.0-51.0); Hemoglobin 8.1 g/dL (14.0-18.0); Mean Corpuscular HGB CONC 32.8 g/dL (32.0-36.0); Mean Corpuscular Hemoglobin 30.9 pg (27.0-31.0); Mean Platelet Volume 8.8 fL (7.4-10.4); Platelet Count 120 10x3/uL (130-400); RBC Distribution Width 15.3 % (11.5-14.5); Red Blood Cell (RBC) Count 2.63 mill/uL (4.70-6.10); White Blood Cell (WBC) Count 5.1 10x3/uL (4.8-10.8)
[2022-03-27 12:01] LABS: Anion Gap 13 mmol/L (10-20); BUN (Urea Nitrogen) 26 mg/dL (8.4-25.7); Calc. Creatinine Clearance 16 mL/min (70-130); Calcium 7.7 mg/dL (7.8-10.44); Carbon Dioxide 25 mmol/L (23-31); Chloride 100 mmol/L (98-107); Estimated GFR 12; Glucose 180 mg/dL (80-115); Magnesium 2.3 mg/dL (1.6-2.6); Potassium 3.6 mmol/L (3.5-5.1); Sodium 134 mmol/L (136-145)
[2022-03-27 14:35] LABS: ALT (SGPT) 9 U/L (8-55); AST (SGOT) 18 U/L (5-34); Albumin 2.4 g/dL (3.4-4.8); Alkaline Phosphatase 168 U/L (40-110); Bilirubin, Direct 0.4 mg/dL (0.1-0.3); Bilirubin, Total 0.8 mg/dL (0.2-1.2); Protein, Total 5.8 g/dL (5.8-8.1)
[2022-03-27] MEDS: Atorvastatin Calcium 40 MG TAB PO SCH (21:32)
[2022-03-28] MEDS: Folic Acid 1 MG TAB PO SCH (10:04)
[2022-03-28] MEDS: Rifaximin 550 MG TAB PO SCH ×2 (10:04→20:26)
[2022-03-28] MEDS: Carvedilol 3.125 MG TAB PO SCH ×2 (10:04→17:03)
[2022-03-28] MEDS: Amlodipine 10 MG TAB PO SCH (10:04)
[2022-03-28] MEDS: Aspirin 81 mg Enteric Coated Tablet PO SCH (10:04)
[2022-03-28] MEDS: Thiamine 100 MG TAB PO SCH (10:04)
[2022-03-28] MEDS ORDERED: Lactulose 10 GM/15 ML Oral Solution PR SCH (17:00)
[2022-03-28] MEDS: Atorvastatin Calcium 40 MG TAB PO SCH (20:26)
[2022-03-29 05:11] LABS: #Eosinphils 0.1 thou/uL (0.0-0.7); #Lymphocytes 0.4 thou/uL (1.20-3.40); #Monocytes 0.4 thou/uL (0.11-0.59); #Neutrophils 3.1 thou/uL (1.40-6.50); %Basophils 0.8 % (0.0-1.0); %Eosinophils 1.7 % (0.0-10.0); %Lymphocytes 9.1 % (21.0-51.0); %Monocytes 10.8 % (0.0-10.0); %Neutrophils 77.6 % (42.0-75.0); Hemoglobin 9.6 g/dL (14.0-18.0); Mean Corpuscular HGB CONC 33.3 g/dL (32.0-36.0); Mean Corpuscular Volume 93.3 fl (78.0-98.0); Mean Platelet Volume 9.2 fL (7.4-10.4); Platelet Count 128 10x3/uL (130-400); RBC Distribution Width 15.4 % (11.5-14.5)
[2022-03-29 05:19] LABS: INR-International Normal Ratio 1.1
[2022-03-29 05:30] LABS: ALT (SGPT) 9 U/L (8-55); AST (SGOT) 17 U/L (5-34); Albumin 2.7 g/dL (3.4-4.8); Alkaline Phosphatase 205 U/L (40-110); Anion Gap 19 mmol/L (10-20); BUN (Urea Nitrogen) 49 mg/dL (8.4-25.7); Bilirubin, Direct 0.5 mg/dL (0.1-0.3); Calc. Creatinine Clearance 10 mL/min (70-130); Calcium 8.3 mg/dL (7.8-10.44); Carbon Dioxide 18 mmol/L (23-31); Chloride 104 mmol/L (98-107); Estimated GFR 7; Glucose 190 mg/dL (80-115); Potassium 3.7 mmol/L (3.5-5.1); Protein, Total 6.8 g/dL (5.8-8.1); Sodium 137 mmol/L (136-145)
[2022-03-29] MEDS ORDERED: Heparin 10,000 UNITS/ 10 ML VIAL ONE (08:34)
[2022-03-29] MEDS ORDERED: Acetaminophen 650 MG Suppository PR SCH (09:30)
[2022-03-29 09:54] LABS: Actual Bicarbonate (HCO3a) 19.1 mEq/L (22-28); Base Excess (BEa) -2.1 mEq/L (-2.0 to +3.0); Calcium, Ionized (arterial) 1.07 mmol/L (1.12-1.30); Carboxyhemoglobin (COHb) 0.3 gm% (0.0-3.0); Hemoglobin (Hb) 9.8 g/dL (14.0-18.0); O2 Tension (PaO2), arterial 74.3 mmHg (> 80.0); Potassium - ABG Lab 3.18 mmol/L (3.70-5.30); pH, Arterial 7.55 (7.35-7.45)
[2022-03-29 09:56] LABS: ALV-art Gradient 47.555 mmHg (0-20); CO2 Tension 22.3 mmHg (35.0-45.0); Puncture Site LRA
[2022-03-29] MEDS ORDERED: Vancomycin Diaylsis Sliding Scale (Wt 71-99) FS SCH (10:00)
[2022-03-29 10:14] LABS: #Lymphocytes 0.2 thou/uL (1.20-3.40); #Monocytes 0.2 thou/uL (0.11-0.59); #Neutrophils 5.2 thou/uL (1.40-6.50); %Basophils 0.2 % (0.0-1.0); %Eosinophils 0.2 % (0.0-10.0); %Lymphocytes 4.2 % (21.0-51.0); %Monocytes 3.8 % (0.0-10.0); %Neutrophils 91.6 % (42.0-75.0); Hemoglobin 9.5 g/dL (14.0-18.0); Mean Corpuscular HGB CONC 32.9 g/dL (32.0-36.0); Mean Corpuscular Hemoglobin 30.6 pg (27.0-31.0); Mean Platelet Volume 9.2 fL (7.4-10.4); Platelet Count 125 10x3/uL (130-400); RBC Distribution Width 15.4 % (11.5-14.5); Red Blood Cell (RBC) Count 3.09 mill/uL (4.70-6.10); White Blood Cell (WBC) Count 5.6 10x3/uL (4.8-10.8)
[2022-03-29] MEDS ORDERED: Vancomycin 1.5 GRAM/300 ML BAG 1.5 GM in Premix Bag 1 BAG IVPB SCH ×2 (10:15→12:00)
[2022-03-29 10:36] LABS: ALT (SGPT) 15 U/L (8-55); AST (SGOT) 19 U/L (5-34); Albumin 2.7 g/dL (3.4-4.8); Alkaline Phosphatase 214 U/L (40-110); Anion Gap 16 mmol/L (10-20); BUN (Urea Nitrogen) 54 mg/dL (8.4-25.7); Bilirubin, Total 1.1 mg/dL (0.2-1.2); Calc. Creatinine Clearance 10 mL/min (70-130); Calcium 8.3 mg/dL (7.8-10.44); Carbon Dioxide 20 mmol/L (23-31); Chloride 104 mmol/L (98-107); Estimated GFR 6; Globulin 4.3 g/dL (2.4-3.5); Glucose 171 mg/dL (80-115); Potassium 3.2 mmol/L (3.5-5.1); Sodium 137 mmol/L (136-145)
[2022-03-29] MEDS ORDERED: Piperacillin/Tazobactam 3.375 GM in Sodium Chloride 0.9% 100 ML IVPB SCH (11:00)
[2022-03-29] MEDS: Carvedilol 3.125 MG TAB PO SCH ×2 (12:43→17:31)
[2022-03-29] MEDS: Thiamine 100 MG TAB PO SCH (12:43)
[2022-03-29] MEDS: Aspirin 81 mg Enteric Coated Tablet PO SCH (12:44)
[2022-03-29] MEDS: Amlodipine 10 MG TAB PO SCH (12:44)
[2022-03-29] MEDS: Folic Acid 1 MG TAB PO SCH (12:44)
[2022-03-29] MEDS: Rifaximin 550 MG TAB PO SCH ×2 (12:44→21:02)
[2022-03-29 14:04] LABS: Bilirubin Negative (Negative); Blood, Urine 3+ (Negative); Glucose, Urine (Dipstick) Normal (Negative); Ketone, Urine Trace mg/dL (Negative); Leukocyte 25 Leu/uL (Negative); Nitrite Negative (Negative); Protein, Urine (Dipstick) 300 mg/dL (Neg-Trace); Specific Gravity, Urine 1.018 (1.002-1.036); Urobilinogen Normal mg/dL (Less than 2); pH, Urine 5.5 (5.0-9.0)
[2022-03-29 14:05] LABS: Clarity Cloudy (Clear)
[2022-03-29 15:40] LABS: Lactic Acid 3.1 mmol/L (0.5-2.2)
[2022-03-29] MEDS: Piperacillin/Tazobactam 3.375 GM in Sodium Chloride 0.9% 100 ML IVPB SCH (17:31)
[2022-03-29] MEDS: Atorvastatin Calcium 40 MG TAB PO SCH (21:02)
[2022-03-30] MEDS: Piperacillin/Tazobactam 3.375 GM in Sodium Chloride 0.9% 100 ML IVPB SCH ×2 (03:22→15:01)
[2022-03-30] MEDS: Rifaximin 550 MG TAB PO SCH ×2 (10:24→20:06)
[2022-03-30] MEDS: Folic Acid 1 MG TAB PO SCH (10:24)
[2022-03-30] MEDS: Aspirin 81 mg Enteric Coated Tablet PO SCH (10:25)
[2022-03-30] MEDS: Thiamine 100 MG TAB PO SCH (10:25)
[2022-03-30] MEDS: Amlodipine 10 MG TAB PO SCH (10:25)
[2022-03-30] MEDS: Carvedilol 3.125 MG TAB PO SCH (10:26)
[2022-03-30 11:18] LABS: Mean Corpuscular HGB CONC 32.3 g/dL (32.0-36.0); Mean Corpuscular Hemoglobin 30.5 pg (27.0-31.0); Mean Corpuscular Volume 94.3 fl (78.0-98.0); Mean Platelet Volume 9.8 fL (7.4-10.4); Platelet Count 109 10x3/uL (130-400); RBC Distribution Width 15.5 % (11.5-14.5); Red Blood Cell (RBC) Count 2.96 mill/uL (4.70-6.10); White Blood Cell (WBC) Count 9.6 10x3/uL (4.8-10.8)
[2022-03-30 11:34] LABS: Anion Gap 12 mmol/L (10-20); BUN (Urea Nitrogen) 32 mg/dL (8.4-25.7); Calc. Creatinine Clearance 16 mL/min (70-130); Calcium 8.2 mg/dL (7.8-10.44); Carbon Dioxide 27 mmol/L (23-31); Chloride 101 mmol/L (98-107); Estimated GFR 12; Glucose 92 mg/dL (80-115); Potassium 3.9 mmol/L (3.5-5.1); Sodium 136 mmol/L (136-145)
[2022-03-30 11:51] LABS: Band 37 % (5-11); Eosinophils 1 % (0-10); Lymphocytes 6 % (21-51); MDiff Complete? YES; Monocytes 4 % (0-10); Neutrophil 51 % (42-75); Platelet Morphology Comment Appears Decreased; Polychromasia SLIGHT = 2-3 cells (100X) (0-2/hpf); Reactive Lymphocytes 1 % (0-10)
[2022-03-30] MEDS: Carvedilol 6.25 MG TAB PO SCH (18:04)
[2022-03-30] MEDS: Atorvastatin Calcium 40 MG TAB PO SCH (20:06)
[2022-03-30] MEDS: Acetaminophen 500 MG TAB PO PRN (20:12)
[2022-03-31] MEDS: Acetaminophen 500 MG TAB PO PRN (02:22)
[2022-03-31 03:56] LABS: #Eosinphils 0.3 thou/uL (0.0-0.7); #Lymphocytes 0.8 thou/uL (1.20-3.40); #Neutrophils 5.8 thou/uL (1.40-6.50); %Basophils 0.5 % (0.0-1.0); %Eosinophils 3.4 % (0.0-10.0); %Lymphocytes 10.4 % (21.0-51.0); %Monocytes 12.3 % (0.0-10.0); %Neutrophils 73.5 % (42.0-75.0); Hemoglobin 7.7 g/dL (14.0-18.0); Mean Corpuscular HGB CONC 34.7 g/dL (32.0-36.0); Mean Corpuscular Hemoglobin 32.5 pg (27.0-31.0); Mean Corpuscular Volume 93.6 fl (78.0-98.0); Mean Platelet Volume 10.1 fL (7.4-10.4); Platelet Count 80 10x3/uL (130-400); RBC Distribution Width 15.5 % (11.5-14.5); Red Blood Cell (RBC) Count 2.36 mill/uL (4.70-6.10); White Blood Cell (WBC) Count 7.9 10x3/uL (4.8-10.8)
[2022-03-31 04:18] LABS: Anion Gap 12 mmol/L (10-20); BUN (Urea Nitrogen) 50 mg/dL (8.4-25.7); Calc. Creatinine Clearance 12 mL/min (70-130); Calcium 7.3 mg/dL (7.8-10.44); Carbon Dioxide 26 mmol/L (23-31); Chloride 98 mmol/L (98-107); Estimated GFR 8; Glucose 151 mg/dL (80-115); Potassium 3.7 mmol/L (3.5-5.1); Sodium 132 mmol/L (136-145)
[2022-03-31 07:38] LABS: Vancomycin, Random 9.7 ug/mL (See Comment)
[2022-03-31] MEDS ORDERED: Heparin 10,000 UNITS/ 10 ML VIAL ONE (07:42)
[2022-03-31] MEDS ORDERED: Lidocaine 1% w/Epinephrine 1:200K 30 ML VIAL FS SCH (08:45)
[2022-03-31] MEDS: Carvedilol 6.25 MG TAB PO SCH ×2 (14:57→15:45)
[2022-03-31] MEDS: Aspirin 81 mg Enteric Coated Tablet PO SCH (15:45)
[2022-03-31] MEDS: Folic Acid 1 MG TAB PO SCH (15:46)
[2022-03-31] MEDS: Rifaximin 550 MG TAB PO SCH ×2 (15:46→20:10)
[2022-03-31] MEDS: Thiamine 100 MG TAB PO SCH (15:46)
[2022-03-31] MEDS: Amlodipine 10 MG TAB PO SCH (15:46)
[2022-03-31] MEDS ORDERED: VANCOMYCIN 1.25 GM/250 ML BAG 1.25 GM in Premix Bag 1 BAG IVPB SCH (17:00)
[2022-03-31] MEDS: Atorvastatin Calcium 40 MG TAB PO SCH (20:10)
[2022-04-01] MEDS: Acetaminophen 500 MG TAB PO PRN ×2 (02:23→10:13)
[2022-04-01] MEDS: Aspirin 81 mg Enteric Coated Tablet PO SCH (09:59)
[2022-04-01] MEDS: Rifaximin 550 MG TAB PO SCH ×2 (09:59→20:18)
[2022-04-01] MEDS: Amlodipine 10 MG TAB PO SCH (09:59)
[2022-04-01] MEDS: Folic Acid 1 MG TAB PO SCH (09:59)
[2022-04-01] MEDS: Thiamine 100 MG TAB PO SCH (10:00)
[2022-04-01] MEDS: Carvedilol 6.25 MG TAB PO SCH ×2 (10:00→16:32)
[2022-04-01] MEDS: Ergocalciferol 1.25 MG(50,000 UNITS) CAP PO SCH (15:56)
[2022-04-01] MEDS: Atorvastatin Calcium 40 MG TAB PO SCH (20:18)
[2022-04-02 07:46] LABS: Albumin 2.1 g/dL (3.4-4.8); Anion Gap 13 mmol/L (10-20); BUN (Urea Nitrogen) 54 mg/dL (8.4-25.7); BUN/Creatinine Ratio 6.84; Calc. Creatinine Clearance 11 mL/min (70-130); Carbon Dioxide 23 mmol/L (23-31); Chloride 101 mmol/L (98-107); Estimated GFR 7; Glucose 145 mg/dL (80-115); Phosphorus 5.5 mg/dL (2.3-4.7); Potassium 4.6 mmol/L (3.5-5.1); Sodium 132 mmol/L (136-145)
[2022-04-02 07:47] LABS: Vancomycin, Random 17.4 ug/mL (See Comment)
[2022-04-02 08:42] LABS: Anisocytosis SLIGHT = 6-15 cells (100X) (0-5/hpf); Eosinophils 10 % (0-10); Hemoglobin 7.1 g/dL (14.0-18.0); Lymphocytes 20 % (21-51); MDiff Complete? YES; Mean Corpuscular HGB CONC 33.2 g/dL (32.0-36.0); Mean Corpuscular Hemoglobin 30.9 pg (27.0-31.0); Mean Corpuscular Volume 93.1 fl (78.0-98.0); Mean Platelet Volume 10.4 fL (7.4-10.4); Monocytes 16 % (0-10); Neutrophil 54 % (42-75); Platelet Count 76 10x3/uL (130-400); Platelet Morphology Comment Appears Decreased; RBC Distribution Width 15.4 % (11.5-14.5); White Blood Cell (WBC) Count 4.2 10x3/uL (4.8-10.8)
[2022-04-02] MEDS: Aspirin 81 mg Enteric Coated Tablet PO SCH ×2 (08:53→09:27)
[2022-04-02] MEDS: Folic Acid 1 MG TAB PO SCH ×2 (08:53→09:27)
[2022-04-02] MEDS: Rifaximin 550 MG TAB PO SCH ×3 (08:53→21:50)
[2022-04-02] MEDS: Thiamine 100 MG TAB PO SCH ×2 (08:54→09:27)
[2022-04-02] MEDS: Carvedilol 6.25 MG TAB PO SCH ×2 (09:27→19:26)
[2022-04-02] MEDS: Amlodipine 10 MG TAB PO SCH (09:27)
[2022-04-02] MEDS ORDERED: HOLD VANCOMYCIN FOR LEVEL >25 IVP SCH (10:00)
[2022-04-02 15:02] LABS: HBSAg Index 0.49 S/CO (0-0.99); Hep B Surf Ag Non-Reactive S/CO (NonReactive)
[2022-04-02] MEDS ORDERED: Vancomycin HCl 750 MG in Sodium Chloride 0.9% 250 ML 250 ML IVPB SCH (17:00)
[2022-04-02 18:44] LABS: Hep B Core Total Ab Non-Reactive (NonReactive); Hep B Core Total Index 0.13 S/CO (0-0.79)
[2022-04-02 18:45] LABS: HBSAB Concentration Less than 8.00 mIU/mL; Hep B Surf AB Non-Reactive (NonReactive); Hep C IgG Ab Non-Reactive (NonReactive); Hep C Index 0.26 S/CO (0-0.79)
[2022-04-02] MEDS: Epoetin (ESRD) 10,000 UNITS/ML VIAL SC SCH (21:46)
[2022-04-02] MEDS: Atorvastatin Calcium 40 MG TAB PO SCH (21:49)
[2022-04-03 03:04] LABS: Hep B Surf Ag Non-Reactive S/CO (NonReactive)
[2022-04-03 03:05] LABS: HBSAg Index 0.33 S/CO (0-0.99)
[2022-04-03] MEDS: Folic Acid 1 MG TAB PO SCH (08:59)
[2022-04-03] MEDS: Rifaximin 550 MG TAB PO SCH ×2 (08:59→21:52)
[2022-04-03] MEDS: Aspirin 81 mg Enteric Coated Tablet PO SCH (08:59)
[2022-04-03] MEDS: Thiamine 100 MG TAB PO SCH (09:00)
[2022-04-03] MEDS: Carvedilol 6.25 MG TAB PO SCH ×2 (09:03→16:45)
[2022-04-03] MEDS: Amlodipine 10 MG TAB PO SCH (09:03)
[2022-04-03] MEDS: Atorvastatin Calcium 40 MG TAB PO SCH (21:52)
[2022-04-04] MEDS: Acetaminophen 500 MG TAB PO PRN (01:07)
[2022-04-04 07:30] LABS: Mean Corpuscular HGB CONC 33.5 g/dL (32.0-36.0); Mean Corpuscular Hemoglobin 31.1 pg (27.0-31.0); Mean Corpuscular Volume 92.8 fl (78.0-98.0); Mean Platelet Volume 9.2 fL (7.4-10.4); Platelet Count 82 10x3/uL (130-400); RBC Distribution Width 15.4 % (11.5-14.5); Red Blood Cell (RBC) Count 2.25 mill/uL (4.70-6.10); White Blood Cell (WBC) Count 4.2 10x3/uL (4.8-10.8)
[2022-04-04 07:43] LABS: Albumin 2.1 g/dL (3.4-4.8); Anion Gap 12 mmol/L (10-20); BUN (Urea Nitrogen) 51 mg/dL (8.4-25.7); BUN/Creatinine Ratio 6.75; Calc. Creatinine Clearance 11 mL/min (70-130); Carbon Dioxide 26 mmol/L (23-31); Chloride 101 mmol/L (98-107); Estimated GFR 7; Glucose 123 mg/dL (80-115); Phosphorus 5.8 mg/dL (2.3-4.7); Potassium 4.5 mmol/L (3.5-5.1); Sodium 134 mmol/L (136-145)
[2022-04-04 07:53] LABS: Calcium 6.8 mg/dL (7.8-10.44)
[2022-04-04 08:43] LABS: Band 5 % (5-11); Eosinophils 5 % (0-10); Lymphocytes 26 % (21-51); MDiff Complete? YES; Monocytes 16 % (0-10); Neutrophil 46 % (42-75); Platelet Morphology Comment Appears Decreased; Polychromasia SLIGHT = 2-3 cells (100X) (0-2/hpf); Reactive Lymphocytes 2 % (0-10); Target Cells SLIGHT = 2-5 cells (100X) (0-1/hpf)
[2022-04-04] MEDS ORDERED: Calcium Chloride 13.6 MEQ in Sodium Chloride 0.9% 100 ML IVPB SCH (09:00)
[2022-04-04] MEDS: Aspirin 81 mg Enteric Coated Tablet PO SCH (09:38)
[2022-04-04] MEDS: Folic Acid 1 MG TAB PO SCH (09:38)
[2022-04-04] MEDS: Thiamine 100 MG TAB PO SCH (09:40)
[2022-04-04] MEDS: Rifaximin 550 MG TAB PO SCH (09:40)
[2022-04-04] MEDS: Amlodipine 10 MG TAB PO SCH (09:40)
[2022-04-04] MEDS: Carvedilol 6.25 MG TAB PO SCH (09:40)
[2022-04-04 14:48] VITALS: BP 127/66; TEMP 97.8
== END 2022-04-04 13:47 | DRG 441 ==
LOC: ERS 15:56 → ERHOLD 17:56 → 2NO 03-11 11:30 → T4-A 03-16 21:43 → NEURO 03-24 16:47 → IMCU/EMU 03-29 10:42 → T4-B 03-31 18:02
PROVIDERS: ADMIT Internal Medicine; ATTEND Family Medicine
PROC: 5A1D70Z Performance of Urinary Filtration, Intermittent, Less than 6 Hours Per Day (ICD-10-PCS; 2022-03-10)
PROC: 0JPT3XZ Removal of Tunneled Vascular Access Device from Trunk Subcutaneous Tissue and Fascia, Percutaneous Approach (ICD-10-PCS; 2022-03-31)
PROC: 30233N1 Transfusion of Nonautologous Red Blood Cells into Peripheral Vein, Percutaneous Approach (ICD-10-PCS; principal; 2022-04-02)
DX: K72.00 Acute and subacute hepatic failure without coma (principal); A41.02 Sepsis due to Methicillin resistant Staphylococcus aureus; T80.211A Bloodstream infection due to central venous catheter, initial encounter; G93.41 Metabolic encephalopathy; N18.6 End stage renal disease; I63.89 Other cerebral infarction; K76.7 Hepatorenal syndrome; I50.32 Chronic diastolic (congestive) heart failure; I13.2 Hypertensive heart and chronic kidney disease with heart failure and with stage 5 chronic kidney disease, or end stage renal disease; E87.20 Acidosis, unspecified; D61.818 Other pancytopenia; J90 Pleural effusion, not elsewhere classified; K76.6 Portal hypertension; E87.1 Hypo-osmolality and hyponatremia; Z66 Do not resuscitate; K70.31 Alcoholic cirrhosis of liver with ascites; D63.1 Anemia in chronic kidney disease; Z51.5 Encounter for palliative care; Z20.822 Contact with and (suspected) exposure to COVID-19; E88.09 Other disorders of plasma-protein metabolism, not elsewhere classified; I65.21 Occlusion and stenosis of right carotid artery; F10.20 Alcohol dependence, uncomplicated; F15.10 Other stimulant abuse, uncomplicated; F14.10 Cocaine abuse, uncomplicated; R00.1 Bradycardia, unspecified; Y84.1 Kidney dialysis as the cause of abnormal reaction of the patient, or of later complication, without mention of misadventure at the time of the procedure; E87.6 Hypokalemia; E83.51 Hypocalcemia; Z79.899 Other long term (current) drug therapy; Z91.14 Patient's other noncompliance with medication regimen; Z99.2 Dependence on renal dialysis
CPT/HCPCS: 36415; 36416; 36430; 36600; 51701; 70450; 70496; 70498; 70551; 71045; 74018; 76705; 80048; 80053; 80061; 80069; 80076; 80202; 80306; 81003; 81015; 82140; 82805; 83605; 83735; 83880; 83970; 84484; 85025; 85610; 85730; 86593; 86704; 86780; 86850; 86900; 86901; 87040; 87077; 87149; 87186; 87340; 87811; 90935; 93005; 93306; 93880; 94760; 95816; 95819; 95957; G0257; J1644; J1756; J2543; J3370; J3490; J7050; P9016; P9047; Q4081; Q9967; U0003; U0005

== ENCOUNTER 2022-04-07 17:22 | Inpatient (IN) | payer MEDICARE ==
[2022-04-07] MEDS ORDERED: LORazepam 2 MG/ML SYR.(CARPUJECT) ONE (17:48)
[2022-04-07] MEDS ORDERED: Magnesium 2 GM/50 ML BAG (IN WATER) ONE (17:58)
[2022-04-07] MEDS ORDERED: Calcium Chloride 1 GM/10 ML Abboject SYRINGE ONE (17:58)
[2022-04-07 18:16] LABS: #Eosinphils 0.1 thou/uL (0.0-0.7); #Lymphocytes 0.6 thou/uL (1.20-3.40); #Monocytes 0.4 thou/uL (0.11-0.59); %Basophils 0.5 % (0.0-1.0); %Eosinophils 3.4 % (0.0-10.0); %Lymphocytes 20.4 % (21.0-51.0); %Monocytes 11.5 % (0.0-10.0); %Neutrophils 64.2 % (42.0-75.0); Hemoglobin 6.6 g/dL (14.0-18.0); Mean Corpuscular HGB CONC 33.7 g/dL (32.0-36.0); Mean Corpuscular Hemoglobin 31.6 pg (27.0-31.0); Mean Corpuscular Volume 93.8 fl (78.0-98.0); Mean Platelet Volume 9.4 fL (7.4-10.4); Platelet Count 122 10x3/uL (130-400); RBC Distribution Width 16.7 % (11.5-14.5); Red Blood Cell (RBC) Count 2.08 mill/uL (4.70-6.10)
[2022-04-07 18:19] LABS: Actual Bicarbonate (HCO3a) 27.8 mEq/L (22-28); Analyzer IN Cardio ER; Base Excess (BEa) 4.7 mEq/L (-2.0 to +3.0); Calcium, Ionized (arterial) 1.12 mmol/L (1.12-1.30); Carboxyhemoglobin (COHb) 0.3 gm% (0.0-3.0); O2 Tension (PaO2), arterial 73.5 mmHg (> 80.0); Potassium - ABG Lab 4.45 mmol/L (3.70-5.30); pH, Arterial 7.52 (7.35-7.45)
[2022-04-07 18:28] LABS: Bilirubin Negative (Negative); Blood, Urine 3+ (Negative); Clarity Clear (Clear); Glucose, Urine (Dipstick) Normal (Negative); Ketone, Urine Negative (Negative); Leukocyte Negative Leu/uL (Negative); Nitrite Negative (Negative); Protein, Urine (Dipstick) 200 mg/dL (Neg-Trace); RBC/HPF 21-50 HPF (0-3); Specific Gravity, Urine 1.015 (1.002-1.036); Squamous Epithelial 0-3 HPF (0-3); Urobilinogen Normal mg/dL (Less than 2); pH, Urine 7.5 (5.0-9.0)
[2022-04-07 18:29] LABS: Puncture Site LBA
[2022-04-07 18:33] LABS: Bacteria/HPF None Seen HPF (None Seen)
[2022-04-07 18:38] LABS: Acetaminophen Less than 10.0 mcg/mL (10.0-30.0); Alcohol Less than 10 mg/dL (Less than 10); Salicylate Less than 8.0 mg/dL (15.0-30.0)
[2022-04-07 18:40] LABS: ALT (SGPT) 13 U/L (8-55); AST (SGOT) 41 U/L (5-34); Albumin 1.8 g/dL (3.4-4.8); Alkaline Phosphatase 200 U/L (40-110); Anion Gap 14 mmol/L (10-20); BUN (Urea Nitrogen) 43 mg/dL (8.4-25.7); Bilirubin, Total 0.7 mg/dL (0.2-1.2); Calc. Creatinine Clearance 0 mL/min (70-130); Carbon Dioxide 21 mmol/L (23-31); Chloride 110 mmol/L (98-107); Estimated GFR 9; Globulin 3.4 g/dL (2.4-3.5); Glucose 118 mg/dL (80-115); Lipase 32 U/L (8-78); Potassium 4.3 mmol/L (3.5-5.1); Protein, Total 5.2 g/dL (5.8-8.1); Sodium 141 mmol/L (136-145)
[2022-04-07 18:53] LABS: Calcium 6.3 mg/dL (7.8-10.44)
[2022-04-07 20:38] LABS: Magnesium 3.1 mg/dL (1.6-2.6)
[2022-04-07] MEDS ORDERED: Acetaminophen 650 MG Suppository PR PRN (21:23)
[2022-04-07] MEDS ORDERED: Ondansetron ODT 4 MG TAB PO PRN (21:23)
[2022-04-07] MEDS ORDERED: Ondansetron PF 4 MG/2 ML Vial IVP PRN (21:23)
[2022-04-07] MEDS ORDERED: VANCOMYCIN 1.25 GM/250 ML BAG IVPB SCH (21:44)
[2022-04-07] MEDS ORDERED: Piperacillin/Tazobactam 3.375 GM in Sodium Chloride 0.9% 100 ML IVPB SCH (21:45)
[2022-04-07] MEDS ORDERED: Vancomycin Diaylsis Sliding Scale (Wt 71-99) FS SCH (22:15)
[2022-04-07] MEDS ORDERED: Vancomycin HCl 750 MG in Sodium Chloride 0.9% 250 ML 250 ML IVPB SCH (22:15)
[2022-04-07] MEDS ORDERED: Piperacillin/Tazobactam 3.375 GM VIAL ONE (22:16)
[2022-04-07] MEDS ORDERED: Rifaximin 550 MG TAB PO SCH (22:45)
[2022-04-07] MEDS ORDERED: Pantoprazole 40 MG VIAL IVP SCH (22:45)
[2022-04-07] MEDS ORDERED: Pantoprazole 40 MG VIAL ONE (23:16)
[2022-04-07 23:37] LABS: Lactic Acid 1.9 mmol/L (0.5-2.2)
[2022-04-08] MEDS: Piperacillin/Tazobactam 3.375 GM in Sodium Chloride 0.9% 100 ML IVPB SCH ×2 (05:12→12:28)
[2022-04-08] MEDS ORDERED: Piperacillin/Tazobactam 3.375 GM VIAL ONE (05:12)
[2022-04-08 07:37] LABS: #Eosinphils 0.1 thou/uL (0.0-0.7); #Lymphocytes 0.8 thou/uL (1.20-3.40); #Monocytes 0.5 thou/uL (0.11-0.59); #Neutrophils 3.5 thou/uL (1.40-6.50); %Basophils 0.7 % (0.0-1.0); %Eosinophils 1.6 % (0.0-10.0); %Lymphocytes 16.3 % (21.0-51.0); %Monocytes 9.5 % (0.0-10.0); Hemoglobin 8.2 g/dL (14.0-18.0); Mean Corpuscular HGB CONC 33.5 g/dL (32.0-36.0); Mean Corpuscular Hemoglobin 30.9 pg (27.0-31.0); Mean Corpuscular Volume 92.2 fl (78.0-98.0); Mean Platelet Volume 8.6 fL (7.4-10.4); Platelet Count 149 10x3/uL (130-400); RBC Distribution Width 16.9 % (11.5-14.5); Red Blood Cell (RBC) Count 2.64 mill/uL (4.70-6.10); White Blood Cell (WBC) Count 4.9 10x3/uL (4.8-10.8)
[2022-04-08 07:55] LABS: Vancomycin, Random 26.1 ug/mL (See Comment)
[2022-04-08 08:38] LABS: SARS-CoV-2 NAA Rapid Test Not Detected (NotDetected)
[2022-04-08 08:55] LABS: Albumin 2.3 g/dL (3.4-4.8); Anion Gap 18 mmol/L (10-20); BUN (Urea Nitrogen) 59 mg/dL (8.4-25.7); BUN/Creatinine Ratio 7.13; Calc. Creatinine Clearance 11 mL/min (70-130); Calcium 7.7 mg/dL (7.8-10.44); Carbon Dioxide 22 mmol/L (23-31); Chloride 102 mmol/L (98-107); Estimated GFR 7; Glucose 145 mg/dL (80-115); Phosphorus 6.6 mg/dL (2.3-4.7); Potassium 4.6 mmol/L (3.5-5.1); Sodium 137 mmol/L (136-145)
[2022-04-08 09:04] LABS: Anion Gap 17 mmol/L (10-20); BUN (Urea Nitrogen) 59 mg/dL (8.4-25.7); Calc. Creatinine Clearance 11 mL/min (70-130); Calcium 7.7 mg/dL (7.8-10.44); Carbon Dioxide 23 mmol/L (23-31); Chloride 104 mmol/L (98-107); Estimated GFR 7; Glucose 145 mg/dL (80-115); Potassium 4.6 mmol/L (3.5-5.1); Sodium 139 mmol/L (136-145)
[2022-04-08 11:43] LABS: INR-International Normal Ratio 1.2; Prothrombin Time 15.4 sec (12.0-14.7)
[2022-04-08] MEDS: Pantoprazole 40 MG VIAL IVP SCH (12:29)
[2022-04-08] MEDS: Rifaximin 550 MG TAB PO SCH ×2 (13:56→20:32)
[2022-04-08] MEDS: Thiamine 100 MG TAB PO SCH (13:56)
[2022-04-08] MEDS: Lactulose 10 GM/15 ML Oral Solution PR SCH (14:11)
[2022-04-08] MEDS ORDERED: FLU VACC QS2022-23(6MOS UP)/PF 60 MCG/0.5 ML SYRINGE IM ONE (18:00)
[2022-04-08 18:10] LABS: Hemoglobin 8.6 g/dL (14.0-18.0)
[2022-04-09 02:17] LABS: #Basophils 0.1 thou/uL (0.0-0.2); #Eosinphils 0.2 thou/uL (0.0-0.7); #Lymphocytes 1.1 thou/uL (1.20-3.40); #Monocytes 0.6 thou/uL (0.11-0.59); #Neutrophils 3.3 thou/uL (1.40-6.50); %Basophils 1.2 % (0.0-1.0); %Eosinophils 4.3 % (0.0-10.0); %Lymphocytes 20.5 % (21.0-51.0); %Monocytes 10.5 % (0.0-10.0); %Neutrophils 63.4 % (42.0-75.0); Hemoglobin 8.4 g/dL (14.0-18.0); Mean Corpuscular HGB CONC 34.4 g/dL (32.0-36.0); Mean Corpuscular Hemoglobin 31.7 pg (27.0-31.0); Mean Corpuscular Volume 92.1 fl (78.0-98.0); Mean Platelet Volume 8.2 fL (7.4-10.4); Platelet Count 143 10x3/uL (130-400); RBC Distribution Width 16.9 % (11.5-14.5); Red Blood Cell (RBC) Count 2.65 mill/uL (4.70-6.10); White Blood Cell (WBC) Count 5.2 10x3/uL (4.8-10.8)
[2022-04-09 02:50] LABS: ALT (SGPT) 18 U/L (8-55); AST (SGOT) 31 U/L (5-34); Albumin 2.1 g/dL (3.4-4.8); Alkaline Phosphatase 220 U/L (40-110); Anion Gap 19 mmol/L (10-20); BUN (Urea Nitrogen) 64 mg/dL (8.4-25.7); Bilirubin, Total 1.5 mg/dL (0.2-1.2); Calc. Creatinine Clearance 9 mL/min (70-130); Calcium 7.8 mg/dL (7.8-10.44); Carbon Dioxide 21 mmol/L (23-31); Chloride 107 mmol/L (98-107); Estimated GFR 6; Globulin 4.1 g/dL (2.4-3.5); Glucose 110 mg/dL (80-115); Magnesium 3.2 mg/dL (1.6-2.6); Phosphorus 7.8 mg/dL (2.3-4.7); Potassium 4.2 mmol/L (3.5-5.1); Protein, Total 6.2 g/dL (5.8-8.1); Sodium 143 mmol/L (136-145)
[2022-04-09] MEDS: Lactulose 10 GM/15 ML Oral Solution PR SCH (03:11)
[2022-04-09 07:25] LABS: Hemoglobin 7.9 g/dL (14.0-18.0)
[2022-04-09] MEDS: Pantoprazole 40 MG VIAL IVP SCH (09:49)
[2022-04-09] MEDS: Thiamine 100 MG TAB PO SCH (09:50)
[2022-04-09] MEDS: Rifaximin 550 MG TAB PO SCH ×2 (09:51→20:51)
[2022-04-09 12:45] LABS: HBSAB Concentration Less than 8.00 mIU/mL; HBSAg Index 0.38 S/CO (0-0.99); Hep B Core Total Ab Non-Reactive (NonReactive); Hep B Core Total Index 0.15 S/CO (0-0.79); Hep B Surf AB Non-Reactive (NonReactive); Hep B Surf Ag Non-Reactive S/CO (NonReactive); Hep C IgG Ab Non-Reactive (NonReactive); Hep C Index 0.17 S/CO (0-0.79)
[2022-04-09] MEDS ORDERED: Vancomycin HCl 250 MG in Sodium Chloride 0.9% 100 ML IVPB SCH (17:00)
[2022-04-09 18:12] LABS: Hemoglobin 7.9 g/dL (14.0-18.0)
[2022-04-10 04:27] LABS: #Basophils 0.1 thou/uL (0.0-0.2); #Eosinphils 0.2 thou/uL (0.0-0.7); #Lymphocytes 1.1 thou/uL (1.20-3.40); #Monocytes 0.6 thou/uL (0.11-0.59); #Neutrophils 3.6 thou/uL (1.40-6.50); %Basophils 1.1 % (0.0-1.0); %Eosinophils 3.8 % (0.0-10.0); %Lymphocytes 20.1 % (21.0-51.0); Hemoglobin 7.3 g/dL (14.0-18.0); Mean Corpuscular HGB CONC 33.4 g/dL (32.0-36.0); Mean Corpuscular Hemoglobin 31.4 pg (27.0-31.0); Mean Corpuscular Volume 94.1 fl (78.0-98.0); Mean Platelet Volume 8.2 fL (7.4-10.4); Platelet Count 134 10x3/uL (130-400); RBC Distribution Width 16.5 % (11.5-14.5); Red Blood Cell (RBC) Count 2.31 mill/uL (4.70-6.10); White Blood Cell (WBC) Count 5.7 10x3/uL (4.8-10.8)
[2022-04-10 04:49] LABS: ALT (SGPT) 16 U/L (8-55); AST (SGOT) 28 U/L (5-34); Alkaline Phosphatase 209 U/L (40-110); Anion Gap 15 mmol/L (10-20); BUN (Urea Nitrogen) 42 mg/dL (8.4-25.7); Bilirubin, Total 1.2 mg/dL (0.2-1.2); Calc. Creatinine Clearance 13 mL/min (70-130); Calcium 7.6 mg/dL (7.8-10.44); Carbon Dioxide 23 mmol/L (23-31); Chloride 104 mmol/L (98-107); Estimated GFR 8; Globulin 3.9 g/dL (2.4-3.5); Glucose 114 mg/dL (80-115); Potassium 4.1 mmol/L (3.5-5.1); Protein, Total 5.9 g/dL (5.8-8.1); Sodium 138 mmol/L (136-145)
[2022-04-10 07:58] LABS: Amphetamine Not Detected (NotDetected); Barbiturates Screen Not Detected (NotDetected); Benzodiazepine Screen Not Detected (NotDetected); Cocaine Metabolite Screen Not Detected (NotDetected); Methadone Not Detected (NotDetected); Methamphetamine Not Detected (NotDetected); Opiate Screen Not Detected (NotDetected); Oxycodone Screen Not Detected (NotDetected); Phencyclidine (PCP) Not Detected (NotDetected); THC/Cannabinoid Screen Not Detected (NotDetected); Tricyclic Screen Not Detected (NotDetected)
[2022-04-10] MEDS: Rifaximin 550 MG TAB PO SCH ×2 (09:35→21:07)
[2022-04-10] MEDS: Pantoprazole 40 MG VIAL IVP SCH (09:35)
[2022-04-10] MEDS: Thiamine 100 MG TAB PO SCH (09:35)
[2022-04-10] MEDS ORDERED: Vancomycin Diaylsis Sliding Scale (Wt 71-99) FS SCH (13:00)
[2022-04-10] MEDS ORDERED: Vancomycin HCl 250 MG in Sodium Chloride 0.9% 100 ML IVPB SCH (17:00)
[2022-04-10] MEDS: Acetaminophen 325 MG TAB PO PRN (19:38)
[2022-04-11] MEDS: Acetaminophen 325 MG TAB PO PRN (06:46)
[2022-04-11] MEDS: Pantoprazole 40 MG VIAL IVP SCH (09:17)
[2022-04-11] MEDS: Thiamine 100 MG TAB PO SCH (09:18)
[2022-04-11] MEDS: Rifaximin 550 MG TAB PO SCH ×2 (09:18→21:18)
[2022-04-12] MEDS: Acetaminophen 325 MG TAB PO PRN (01:03)
[2022-04-12 07:23] LABS: Vancomycin, Random 16.8 ug/mL (See Comment)
[2022-04-12 07:35] LABS: Albumin 2.1 g/dL (3.4-4.8); Anion Gap 17 mmol/L (10-20); BUN (Urea Nitrogen) 58 mg/dL (8.4-25.7); BUN/Creatinine Ratio 6.48; Calc. Creatinine Clearance 10 mL/min (70-130); Calcium 7.3 mg/dL (7.8-10.44); Carbon Dioxide 20 mmol/L (23-31); Chloride 103 mmol/L (98-107); Estimated GFR 6; Glucose 128 mg/dL (80-115); Phosphorus 7.7 mg/dL (2.3-4.7); Potassium 4.7 mmol/L (3.5-5.1); Sodium 135 mmol/L (136-145)
[2022-04-12 07:35] LABS: #Eosinphils 0.3 thou/uL (0.0-0.7); #Lymphocytes 0.9 thou/uL (1.20-3.40); #Monocytes 0.8 thou/uL (0.11-0.59); #Neutrophils 3.1 thou/uL (1.40-6.50); %Basophils 0.9 % (0.0-1.0); %Eosinophils 5.6 % (0.0-10.0); %Lymphocytes 17.8 % (21.0-51.0); %Monocytes 14.7 % (0.0-10.0); %Neutrophils 61.1 % (42.0-75.0); Hemoglobin 6.7 g/dL (14.0-18.0); Mean Corpuscular HGB CONC 33.4 g/dL (32.0-36.0); Mean Corpuscular Hemoglobin 31.4 pg (27.0-31.0); Mean Corpuscular Volume 94.1 fl (78.0-98.0); Mean Platelet Volume 8.7 fL (7.4-10.4); Platelet Count 110 10x3/uL (130-400); RBC Distribution Width 15.8 % (11.5-14.5); Red Blood Cell (RBC) Count 2.14 mill/uL (4.70-6.10); White Blood Cell (WBC) Count 5.1 10x3/uL (4.8-10.8)
[2022-04-12] MEDS: Rifaximin 550 MG TAB PO SCH ×2 (09:43→21:09)
[2022-04-12] MEDS: Thiamine 100 MG TAB PO SCH (09:43)
[2022-04-12] MEDS: Pantoprazole 40 MG VIAL IVP SCH (09:44)
[2022-04-12] MEDS ORDERED: Vancomycin HCl 750 MG in Sodium Chloride 0.9% 250 ML 250 ML IVPB SCH (17:00)
[2022-04-12 17:19] LABS: Hemoglobin 6.8 g/dL (14.0-18.0)
[2022-04-13 05:42] LABS: ALT (SGPT) 15 U/L (8-55); AST (SGOT) 24 U/L (5-34); Alkaline Phosphatase 216 U/L (40-110); Anion Gap 18 mmol/L (10-20); BUN (Urea Nitrogen) 66 mg/dL (8.4-25.7); Bilirubin, Total 0.9 mg/dL (0.2-1.2); Calc. Creatinine Clearance 9 mL/min (70-130); Calcium 7.5 mg/dL (7.8-10.44); Carbon Dioxide 19 mmol/L (23-31); Chloride 105 mmol/L (98-107); Estimated GFR 5; Globulin 4.1 g/dL (2.4-3.5); Glucose 144 mg/dL (80-115); Magnesium 2.9 mg/dL (1.6-2.6); Potassium 4.5 mmol/L (3.5-5.1); Protein, Total 6.1 g/dL (5.8-8.1); Sodium 137 mmol/L (136-145)
[2022-04-13 06:13] LABS: Anisocytosis SLIGHT = 6-15 cells (100X) (0-5/hpf); Band 2 % (5-11); Eosinophils 5 % (0-10); Hemoglobin 6.8 g/dL (14.0-18.0); Lymphocytes 21 % (21-51); MDiff Complete? YES; Mean Corpuscular HGB CONC 33.5 g/dL (32.0-36.0); Mean Corpuscular Hemoglobin 31.4 pg (27.0-31.0); Mean Corpuscular Volume 93.5 fl (78.0-98.0); Mean Platelet Volume 8.7 fL (7.4-10.4); Monocytes 13 % (0-10); Neutrophil 59 % (42-75); Ovalocytes SLIGHT = 2-5 cells (100X) (0-1/hpf); Platelet Count 106 10x3/uL (130-400); Platelet Morphology Comment Appears Decreased; Polychromasia SLIGHT = 2-3 cells (100X) (0-2/hpf); RBC Distribution Width 15.8 % (11.5-14.5); Red Blood Cell (RBC) Count 2.18 mill/uL (4.70-6.10); White Blood Cell (WBC) Count 3.3 10x3/uL (4.8-10.8)
[2022-04-13] MEDS: Rifaximin 550 MG TAB PO SCH ×2 (08:24→20:49)
[2022-04-13] MEDS: Thiamine 100 MG TAB PO SCH (08:24)
[2022-04-13] MEDS: Pantoprazole 40 MG VIAL IVP SCH (08:25)
[2022-04-13] MEDS ORDERED: Lactulose 10 GM/15 ML Oral Solution PR PRN (11:37)
[2022-04-13 14:27] LABS: Actual Bicarbonate (HCO3a) 26.2 mEq/L (22-28); Base Excess (BEa) 4.5 mEq/L (-2.0 to +3.0); CO2 Tension 28.6 mmHg (35.0-45.0); Hemoglobin (Hb) 9.7 g/dL (14.0-18.0); O2 Tension (PaO2), arterial 89.8 mmHg (> 80.0); pH, Arterial 7.58 (7.35-7.45)
[2022-04-13 14:28] LABS: Calcium, Ionized (arterial) 1.04 mmol/L (1.12-1.30); Carboxyhemoglobin (COHb) 0.5 gm% (0.0-3.0)
[2022-04-13 14:29] LABS: Puncture Site LBA
[2022-04-13 16:58] LABS: ALT (SGPT) 14 U/L (8-55); AST (SGOT) 23 U/L (5-34); Albumin 2.4 g/dL (3.4-4.8); Alkaline Phosphatase 214 U/L (40-110); Anion Gap 12 mmol/L (10-20); BUN (Urea Nitrogen) 31 mg/dL (8.4-25.7); Bilirubin, Total 3.3 mg/dL (0.2-1.2); Calc. Creatinine Clearance 16 mL/min (70-130); Calcium 7.9 mg/dL (7.8-10.44); Carbon Dioxide 25 mmol/L (23-31); Chloride 104 mmol/L (98-107); Estimated GFR 11; Globulin 4.2 g/dL (2.4-3.5); Glucose 103 mg/dL (80-115); Potassium 4.2 mmol/L (3.5-5.1); Protein, Total 6.6 g/dL (5.8-8.1); Sodium 137 mmol/L (136-145)
[2022-04-13] MEDS: cefTRIAXone\\ROCEPHIN 1 GM in Sodium Chloride 0.9% 100 ML IVPB SCH (18:01)
[2022-04-14 03:35] LABS: #Basophils 0.1 thou/uL (0.0-0.2); #Eosinphils 0.2 thou/uL (0.0-0.7); #Lymphocytes 0.7 thou/uL (1.20-3.40); #Monocytes 0.5 thou/uL (0.11-0.59); #Neutrophils 1.9 thou/uL (1.40-6.50); %Basophils 1.7 % (0.0-1.0); %Eosinophils 4.7 % (0.0-10.0); %Lymphocytes 21.9 % (21.0-51.0); %Monocytes 14.3 % (0.0-10.0); %Neutrophils 57.4 % (42.0-75.0); Hemoglobin 7.8 g/dL (14.0-18.0); Mean Corpuscular HGB CONC 34.3 g/dL (32.0-36.0); Mean Corpuscular Hemoglobin 32.3 pg (27.0-31.0); Mean Corpuscular Volume 94.2 fl (78.0-98.0); Mean Platelet Volume 8.1 fL (7.4-10.4); Platelet Count 115 10x3/uL (130-400); RBC Distribution Width 15.7 % (11.5-14.5); Red Blood Cell (RBC) Count 2.42 mill/uL (4.70-6.10); White Blood Cell (WBC) Count 3.2 10x3/uL (4.8-10.8)
[2022-04-14 04:25] LABS: Calcium 7.7 mg/dL (7.8-10.44); Chloride 106 mmol/L (98-107); Glucose 88 mg/dL (80-115); Potassium 4.1 mmol/L (3.5-5.1); Sodium 138 mmol/L (136-145)
[2022-04-14 04:27] LABS: Anion Gap 13 mmol/L (10-20); Carbon Dioxide 23 mmol/L (23-31)
[2022-04-14 04:29] LABS: BUN (Urea Nitrogen) 39 mg/dL (8.4-25.7); Calc. Creatinine Clearance 14 mL/min (70-130); Estimated GFR 9
[2022-04-14 06:25] LABS: Albumin 1.9 g/dL (3.4-4.8)
[2022-04-14 06:27] LABS: Globulin 3.9 g/dL (2.4-3.5); Protein, Total 5.8 g/dL (5.8-8.1)
[2022-04-14 06:29] LABS: Bilirubin, Total 1.6 mg/dL (0.2-1.2)
[2022-04-14 06:30] LABS: Alkaline Phosphatase 193 U/L (40-110)
[2022-04-14 06:32] LABS: AST (SGOT) 21 U/L (5-34)
[2022-04-14 06:33] LABS: ALT (SGPT) 14 U/L (8-55)
[2022-04-14 07:02] LABS: Vancomycin, Random 15.3 ug/mL (See Comment)
[2022-04-14] MEDS: Pantoprazole 40 MG VIAL IVP SCH (07:54)
[2022-04-14] MEDS: Thiamine 100 MG TAB PO SCH (07:55)
[2022-04-14] MEDS: Rifaximin 550 MG TAB PO SCH ×2 (07:55→20:53)
[2022-04-14] MEDS: cefTRIAXone\\ROCEPHIN 1 GM in Sodium Chloride 0.9% 100 ML IVPB SCH (12:28)
[2022-04-14] MEDS ORDERED: Vancomycin HCl 750 MG in Sodium Chloride 0.9% 250 ML 250 ML IVPB SCH ×2 (17:00→21:15)
[2022-04-15 04:04] LABS: ALT (SGPT) 17 U/L (8-55); AST (SGOT) 35 U/L (5-34); Alkaline Phosphatase 226 U/L (40-110); Anion Gap 13 mmol/L (10-20); BUN (Urea Nitrogen) 21 mg/dL (8.4-25.7); Calc. Creatinine Clearance 20 mL/min (70-130); Calcium 8.3 mg/dL (7.8-10.44); Carbon Dioxide 26 mmol/L (23-31); Chloride 103 mmol/L (98-107); Estimated GFR 14; Globulin 4.2 g/dL (2.4-3.5); Glucose 95 mg/dL (80-115); Potassium 3.8 mmol/L (3.5-5.1); Protein, Total 6.2 g/dL (5.8-8.1); Sodium 138 mmol/L (136-145)
[2022-04-15 04:15] LABS: Anisocytosis SLIGHT = 6-15 cells (100X) (0-5/hpf); Eosinophils 7 % (0-10); Hemoglobin 8.4 g/dL (14.0-18.0); Lymphocytes 24 % (21-51); MDiff Complete? YES; Mean Corpuscular HGB CONC 33.4 g/dL (32.0-36.0); Mean Corpuscular Hemoglobin 31.6 pg (27.0-31.0); Mean Corpuscular Volume 94.7 fl (78.0-98.0); Mean Platelet Volume 8.2 fL (7.4-10.4); Monocytes 15 % (0-10); Neutrophil 55 % (42-75); Platelet Count 139 10x3/uL (130-400); Platelet Morphology Comment Appears Adequate; RBC Distribution Width 15.7 % (11.5-14.5); Red Blood Cell (RBC) Count 2.66 mill/uL (4.70-6.10); White Blood Cell (WBC) Count 3.2 10x3/uL (4.8-10.8)
[2022-04-15] MEDS: Thiamine 100 MG TAB PO SCH (08:05)
[2022-04-15] MEDS: Rifaximin 550 MG TAB PO SCH ×2 (08:05→20:53)
[2022-04-15] MEDS: Pantoprazole 40 MG VIAL IVP SCH (08:12)
[2022-04-15] MEDS: Acetaminophen 325 MG TAB PO PRN (12:52)
[2022-04-15] MEDS: cefTRIAXone\\ROCEPHIN 1 GM in Sodium Chloride 0.9% 100 ML IVPB SCH (12:53)
[2022-04-15] MEDS ORDERED: Vancomycin HCl 750 MG in Sodium Chloride 0.9% 250 ML 250 ML IVPB SCH (21:00)
[2022-04-16 07:44] LABS: Vancomycin, Random 19.2 ug/mL (See Comment)
[2022-04-16 07:48] LABS: ALT (SGPT) 19 U/L (8-55); AST (SGOT) 36 U/L (5-34); Alkaline Phosphatase 250 U/L (40-110); Anion Gap 13 mmol/L (10-20); BUN (Urea Nitrogen) 32 mg/dL (8.4-25.7); Bilirubin, Total 0.8 mg/dL (0.2-1.2); Calc. Creatinine Clearance 14 mL/min (70-130); Calcium 7.7 mg/dL (7.8-10.44); Carbon Dioxide 25 mmol/L (23-31); Chloride 103 mmol/L (98-107); Estimated GFR 9; Globulin 4.2 g/dL (2.4-3.5); Glucose 93 mg/dL (80-115); Potassium 4.1 mmol/L (3.5-5.1); Protein, Total 6.2 g/dL (5.8-8.1); Sodium 137 mmol/L (136-145)
[2022-04-16] MEDS: Pantoprazole 40 MG VIAL IVP SCH (08:40)
[2022-04-16] MEDS: Thiamine 100 MG TAB PO SCH (08:41)
[2022-04-16] MEDS: Rifaximin 550 MG TAB PO SCH ×2 (08:41→20:46)
[2022-04-16 08:54] LABS: Anisocytosis SLIGHT = 6-15 cells (100X) (0-5/hpf); Band 3 % (5-11); Eosinophils 5 % (0-10); Hemoglobin 7.9 g/dL (14.0-18.0); Lymphocytes 26 % (21-51); MDiff Complete? YES; Mean Corpuscular HGB CONC 32.8 g/dL (32.0-36.0); Mean Corpuscular Hemoglobin 30.8 pg (27.0-31.0); Mean Corpuscular Volume 93.9 fl (78.0-98.0); Mean Platelet Volume 8.2 fL (7.4-10.4); Monocytes 9 % (0-10); Neutrophil 54 % (42-75); Ovalocytes SLIGHT = 2-5 cells (100X) (0-1/hpf); Platelet Count 124 10x3/uL (130-400); Platelet Morphology Comment Appears Decreased; Red Blood Cell (RBC) Count 2.56 mill/uL (4.70-6.10); White Blood Cell (WBC) Count 3.3 10x3/uL (4.8-10.8)
[2022-04-16] MEDS: cefTRIAXone\\ROCEPHIN 1 GM in Sodium Chloride 0.9% 100 ML IVPB SCH (16:21)
[2022-04-16] MEDS ORDERED: Vancomycin HCl 750 MG in Sodium Chloride 0.9% 250 ML 250 ML IVPB SCH (17:00)
[2022-04-17] MEDS: Pantoprazole 40 MG VIAL IVP SCH (08:14)
[2022-04-17] MEDS: Thiamine 100 MG TAB PO SCH (08:15)
[2022-04-17] MEDS: Rifaximin 550 MG TAB PO SCH ×2 (08:15→20:53)
[2022-04-17] MEDS: cefTRIAXone\\ROCEPHIN 1 GM in Sodium Chloride 0.9% 100 ML IVPB SCH (13:01)
[2022-04-18 05:47] LABS: Hemoglobin 7.5 g/dL (14.0-18.0); Mean Corpuscular HGB CONC 33.2 g/dL (32.0-36.0); Mean Corpuscular Hemoglobin 31.3 pg (27.0-31.0); Mean Corpuscular Volume 94.1 fl (78.0-98.0); Mean Platelet Volume 8.3 fL (7.4-10.4); Platelet Count 101 10x3/uL (130-400); RBC Distribution Width 15.8 % (11.5-14.5); Red Blood Cell (RBC) Count 2.39 mill/uL (4.70-6.10)
[2022-04-18 05:57] LABS: ALT (SGPT) 17 U/L (8-55); AST (SGOT) 28 U/L (5-34); Albumin 2.1 g/dL (3.4-4.8); Alkaline Phosphatase 211 U/L (40-110); Anion Gap 12 mmol/L (10-20); BUN (Urea Nitrogen) 34 mg/dL (8.4-25.7); Bilirubin, Total 1.1 mg/dL (0.2-1.2); Calc. Creatinine Clearance 14 mL/min (70-130); Calcium 7.7 mg/dL (7.8-10.44); Carbon Dioxide 25 mmol/L (23-31); Chloride 107 mmol/L (98-107); Estimated GFR 9; Globulin 3.8 g/dL (2.4-3.5); Glucose 90 mg/dL (80-115); Potassium 3.6 mmol/L (3.5-5.1); Protein, Total 5.9 g/dL (5.8-8.1); Sodium 140 mmol/L (136-145)
[2022-04-18 06:11] LABS: Band 1 % (5-11); Eosinophils 7 % (0-10); Lymphocytes 34 % (21-51); MDiff Complete? YES; Monocytes 11 % (0-10); Neutrophil 46 % (42-75); Platelet Morphology Comment Appears Decreased
[2022-04-18] MEDS: Rifaximin 550 MG TAB PO SCH (09:12)
[2022-04-18] MEDS: Pantoprazole 40 MG VIAL IVP SCH (09:12)
[2022-04-18] MEDS: Thiamine 100 MG TAB PO SCH (09:12)
[2022-04-18] MEDS ORDERED: cefTRIAXone\\ROCEPHIN 1 GM in Sodium Chloride 0.9% 100 ML IVPB SCH (13:00)
[2022-04-19 07:08] LABS: Vancomycin, Random 16.8 ug/mL (See Comment)
[2022-04-19] MEDS: Pantoprazole 40 MG VIAL IVP SCH (09:15)
[2022-04-19 14:10] VITALS: BMI 24.9
[2022-04-19] MEDS ORDERED: Vancomycin HCl 750 MG in Sodium Chloride 0.9% 250 ML 250 ML IVPB SCH (17:00)
[2022-04-19] MEDS: Rifaximin 550 MG TAB PO SCH (20:06)
[2022-04-20] MEDS: Rifaximin 550 MG TAB PO SCH ×2 (09:40→20:10)
[2022-04-20] MEDS: Thiamine 100 MG TAB PO SCH (09:41)
[2022-04-20] MEDS: Pantoprazole 40 MG VIAL IVP SCH (09:42)
[2022-04-20] MEDS ORDERED: Vancomycin Diaylsis Sliding Scale (Wt 71-99) FS SCH (14:00)
[2022-04-21 07:23] LABS: Vancomycin, Random 18.6 ug/mL (See Comment)
[2022-04-21 09:44] LABS: #Basophils 0.1 thou/uL (0.0-0.2); #Eosinphils 0.3 thou/uL (0.0-0.7); #Lymphocytes 1.1 thou/uL (1.20-3.40); #Monocytes 0.6 thou/uL (0.11-0.59); #Neutrophils 1.9 thou/uL (1.40-6.50); %Basophils 1.7 % (0.0-1.0); %Eosinophils 6.8 % (0.0-10.0); %Lymphocytes 28.9 % (21.0-51.0); %Neutrophils 48.6 % (42.0-75.0); Hemoglobin 8.2 g/dL (14.0-18.0); Mean Corpuscular HGB CONC 32.4 g/dL (32.0-36.0); Mean Corpuscular Hemoglobin 30.7 pg (27.0-31.0); Mean Corpuscular Volume 94.8 fl (78.0-98.0); Mean Platelet Volume 8.5 fL (7.4-10.4); Platelet Count 118 10x3/uL (130-400); RBC Distribution Width 15.3 % (11.5-14.5); Red Blood Cell (RBC) Count 2.68 mill/uL (4.70-6.10); White Blood Cell (WBC) Count 3.9 10x3/uL (4.8-10.8)
[2022-04-21 09:50] LABS: Albumin 2.1 g/dL (3.4-4.8); Anion Gap 16 mmol/L (10-20); BUN (Urea Nitrogen) 40 mg/dL (8.4-25.7); BUN/Creatinine Ratio 5.66; Calc. Creatinine Clearance 13 mL/min (70-130); Calcium 7.9 mg/dL (7.8-10.44); Carbon Dioxide 19 mmol/L (23-31); Chloride 111 mmol/L (98-107); Estimated GFR 8; Glucose 102 mg/dL (80-115); Phosphorus 5.6 mg/dL (2.3-4.7); Potassium 4.1 mmol/L (3.5-5.1); Sodium 142 mmol/L (136-145)
[2022-04-21] MEDS: Pantoprazole 40 MG VIAL IVP SCH (14:13)
[2022-04-21] MEDS: Rifaximin 550 MG TAB PO SCH ×2 (14:13→20:26)
[2022-04-21] MEDS: Thiamine 100 MG TAB PO SCH (14:14)
[2022-04-21] MEDS ORDERED: Vancomycin HCl 750 MG in Sodium Chloride 0.9% 250 ML 250 ML IVPB SCH (17:00)
[2022-04-22] MEDS: Thiamine 100 MG TAB PO SCH (08:44)
[2022-04-22] MEDS: Rifaximin 550 MG TAB PO SCH ×2 (08:44→20:04)
[2022-04-22] MEDS: Pantoprazole 40 MG VIAL IVP SCH (08:44)
[2022-04-22 18:13] LABS: #Basophils 0.1 thou/uL (0.0-0.2); #Eosinphils 0.3 thou/uL (0.0-0.7); #Lymphocytes 1.2 thou/uL (1.20-3.40); #Monocytes 0.5 thou/uL (0.11-0.59); #Neutrophils 1.7 thou/uL (1.40-6.50); %Basophils 1.7 % (0.0-1.0); %Eosinophils 6.7 % (0.0-10.0); %Lymphocytes 32.6 % (21.0-51.0); %Monocytes 13.4 % (0.0-10.0); %Neutrophils 45.7 % (42.0-75.0); Hemoglobin 8.2 g/dL (14.0-18.0); Mean Corpuscular HGB CONC 32.5 g/dL (32.0-36.0); Mean Corpuscular Hemoglobin 30.6 pg (27.0-31.0); Mean Platelet Volume 8.8 fL (7.4-10.4); Platelet Count 113 10x3/uL (130-400); RBC Distribution Width 15.3 % (11.5-14.5); Red Blood Cell (RBC) Count 2.68 mill/uL (4.70-6.10); White Blood Cell (WBC) Count 3.8 10x3/uL (4.8-10.8)
[2022-04-22 18:32] LABS: Anion Gap 11 mmol/L (10-20); BUN (Urea Nitrogen) 31 mg/dL (8.4-25.7); Calc. Creatinine Clearance 16 mL/min (70-130); Carbon Dioxide 25 mmol/L (23-31); Chloride 109 mmol/L (98-107); Estimated GFR 10; Glucose 135 mg/dL (80-115); Potassium 4.2 mmol/L (3.5-5.1); Sodium 141 mmol/L (136-145)
[2022-04-23 04:43] LABS: #Basophils 0.1 thou/uL (0.0-0.2); #Eosinphils 0.3 thou/uL (0.0-0.7); #Lymphocytes 1.1 thou/uL (1.20-3.40); #Monocytes 0.5 thou/uL (0.11-0.59); #Neutrophils 1.6 thou/uL (1.40-6.50); %Basophils 1.5 % (0.0-1.0); %Eosinophils 7.6 % (0.0-10.0); %Lymphocytes 32.1 % (21.0-51.0); %Monocytes 12.7 % (0.0-10.0); %Neutrophils 46.2 % (42.0-75.0); Hemoglobin 7.6 g/dL (14.0-18.0); Mean Corpuscular HGB CONC 32.5 g/dL (32.0-36.0); Mean Corpuscular Hemoglobin 30.5 pg (27.0-31.0); Mean Corpuscular Volume 93.8 fl (78.0-98.0); Mean Platelet Volume 8.3 fL (7.4-10.4); Platelet Count 106 10x3/uL (130-400); RBC Distribution Width 15.2 % (11.5-14.5); Red Blood Cell (RBC) Count 2.48 mill/uL (4.70-6.10); White Blood Cell (WBC) Count 3.6 10x3/uL (4.8-10.8)
[2022-04-23 04:55] LABS: Anion Gap 15 mmol/L (10-20); BUN (Urea Nitrogen) 37 mg/dL (8.4-25.7); Calc. Creatinine Clearance 14 mL/min (70-130); Calcium 8.1 mg/dL (7.8-10.44); Carbon Dioxide 21 mmol/L (23-31); Chloride 108 mmol/L (98-107); Estimated GFR 9; Glucose 98 mg/dL (80-115); Sodium 140 mmol/L (136-145)
[2022-04-23 07:38] LABS: Vancomycin, Random 17.7 ug/mL (See Comment)
[2022-04-23] MEDS: Rifaximin 550 MG TAB PO SCH ×2 (13:34→19:49)
[2022-04-23] MEDS: Thiamine 100 MG TAB PO SCH (13:34)
[2022-04-23] MEDS ORDERED: Vancomycin HCl 750 MG in Sodium Chloride 0.9% 250 ML 250 ML IVPB SCH (17:00)
[2022-04-24 06:16] LABS: Anion Gap 12 mmol/L (10-20); BUN (Urea Nitrogen) 27 mg/dL (8.4-25.7); Calc. Creatinine Clearance 19 mL/min (70-130); Calcium 7.8 mg/dL (7.8-10.44); Carbon Dioxide 26 mmol/L (23-31); Chloride 105 mmol/L (98-107); Estimated GFR 13; Glucose 111 mg/dL (80-115); Sodium 139 mmol/L (136-145)
[2022-04-24 06:56] LABS: Anisocytosis SLIGHT = 6-15 cells (100X) (0-5/hpf); Band 4 % (5-11); Eosinophils 2 % (0-10); Hemoglobin 8.1 g/dL (14.0-18.0); Lymphocytes 22 % (21-51); MDiff Complete? YES; Mean Corpuscular HGB CONC 33.5 g/dL (32.0-36.0); Mean Corpuscular Hemoglobin 31.5 pg (27.0-31.0); Mean Platelet Volume 8.6 fL (7.4-10.4); Monocytes 8 % (0-10); Neutrophil 62 % (42-75); Platelet Count 116 10x3/uL (130-400); Platelet Morphology Comment Appears Decreased; RBC Distribution Width 15.2 % (11.5-14.5); Red Blood Cell (RBC) Count 2.56 mill/uL (4.70-6.10)
[2022-04-24] MEDS: Rifaximin 550 MG TAB PO SCH ×2 (08:48→21:05)
[2022-04-24] MEDS: Thiamine 100 MG TAB PO SCH (08:48)
[2022-04-25 05:26] LABS: #Basophils 0.1 thou/uL (0.0-0.2); #Eosinphils 0.2 thou/uL (0.0-0.7); #Lymphocytes 1.1 thou/uL (1.20-3.40); #Monocytes 0.5 thou/uL (0.11-0.59); #Neutrophils 1.7 thou/uL (1.40-6.50); %Basophils 1.9 % (0.0-1.0); %Eosinophils 5.6 % (0.0-10.0); %Lymphocytes 30.8 % (21.0-51.0); %Monocytes 14.3 % (0.0-10.0); %Neutrophils 47.3 % (42.0-75.0); Hemoglobin 8.1 g/dL (14.0-18.0); Mean Corpuscular HGB CONC 33.8 g/dL (32.0-36.0); Mean Corpuscular Hemoglobin 31.8 pg (27.0-31.0); Mean Platelet Volume 8.7 fL (7.4-10.4); Platelet Count 105 10x3/uL (130-400); RBC Distribution Width 15.2 % (11.5-14.5); Red Blood Cell (RBC) Count 2.54 mill/uL (4.70-6.10); White Blood Cell (WBC) Count 3.7 10x3/uL (4.8-10.8)
[2022-04-25 05:39] LABS: Anion Gap 16 mmol/L (10-20); BUN (Urea Nitrogen) 35 mg/dL (8.4-25.7); Calc. Creatinine Clearance 14 mL/min (70-130); Calcium 8.2 mg/dL (7.8-10.44); Carbon Dioxide 20 mmol/L (23-31); Chloride 108 mmol/L (98-107); Estimated GFR 9; Glucose 119 mg/dL (80-115); Potassium 3.8 mmol/L (3.5-5.1); Sodium 140 mmol/L (136-145)
[2022-04-25] MEDS: Rifaximin 550 MG TAB PO SCH ×2 (09:16→21:28)
[2022-04-25] MEDS: Thiamine 100 MG TAB PO SCH (09:16)
[2022-04-25 10:35] LABS: INR-International Normal Ratio 1.3; PTT 30.9 sec (22.9-36.1); Prothrombin Time 16.3 sec (12.0-14.7)
[2022-04-25 13:27] LABS: #Eosinphils 0.2 thou/uL (0.0-0.7); #Monocytes 0.5 thou/uL (0.11-0.59); #Neutrophils 1.9 thou/uL (1.40-6.50); %Eosinophils 5.6 % (0.0-10.0); %Lymphocytes 26.7 % (21.0-51.0); %Monocytes 14.3 % (0.0-10.0); %Neutrophils 52.5 % (42.0-75.0); Hemoglobin 8.3 g/dL (14.0-18.0); Mean Corpuscular HGB CONC 32.6 g/dL (32.0-36.0); Mean Corpuscular Hemoglobin 31.1 pg (27.0-31.0); Mean Corpuscular Volume 95.5 fl (78.0-98.0); Mean Platelet Volume 8.6 fL (7.4-10.4); Platelet Count 99 10x3/uL (130-400); RBC Distribution Width 15.1 % (11.5-14.5); Red Blood Cell (RBC) Count 2.66 mill/uL (4.70-6.10); White Blood Cell (WBC) Count 3.6 10x3/uL (4.8-10.8)
[2022-04-25 13:40] LABS: Anion Gap 16 mmol/L (10-20); BUN (Urea Nitrogen) 39 mg/dL (8.4-25.7); Calc. Creatinine Clearance 13 mL/min (70-130); Calcium 8.2 mg/dL (7.8-10.44); Carbon Dioxide 20 mmol/L (23-31); Chloride 107 mmol/L (98-107); Estimated GFR 8; Glucose 165 mg/dL (80-115); Potassium 3.9 mmol/L (3.5-5.1); Sodium 139 mmol/L (136-145)
[2022-04-26 05:12] LABS: #Basophils 0.1 thou/uL (0.0-0.2); #Eosinphils 0.2 thou/uL (0.0-0.7); #Lymphocytes 1.3 thou/uL (1.20-3.40); #Monocytes 0.6 thou/uL (0.11-0.59); #Neutrophils 2.2 thou/uL (1.40-6.50); %Basophils 1.2 % (0.0-1.0); %Eosinophils 5.5 % (0.0-10.0); %Lymphocytes 28.6 % (21.0-51.0); %Monocytes 13.6 % (0.0-10.0); %Neutrophils 51.2 % (42.0-75.0); Hemoglobin 7.8 g/dL (14.0-18.0); Mean Corpuscular HGB CONC 33.5 g/dL (32.0-36.0); Mean Corpuscular Hemoglobin 31.2 pg (27.0-31.0); Mean Platelet Volume 8.6 fL (7.4-10.4); Platelet Count 104 10x3/uL (130-400); RBC Distribution Width 15.1 % (11.5-14.5); Red Blood Cell (RBC) Count 2.48 mill/uL (4.70-6.10); White Blood Cell (WBC) Count 4.4 10x3/uL (4.8-10.8)
[2022-04-26 05:24] LABS: Anion Gap 16 mmol/L (10-20); BUN (Urea Nitrogen) 45 mg/dL (8.4-25.7); Calc. Creatinine Clearance 12 mL/min (70-130); Carbon Dioxide 20 mmol/L (23-31); Chloride 107 mmol/L (98-107); Potassium 3.8 mmol/L (3.5-5.1); Sodium 139 mmol/L (136-145)
[2022-04-26 05:25] LABS: Calcium 7.9 mg/dL (7.8-10.44); Estimated GFR 7; Glucose 105 mg/dL (80-115)
[2022-04-26 07:36] LABS: Vancomycin, Random 16.4 ug/mL (See Comment)
[2022-04-26] MEDS: Rifaximin 550 MG TAB PO SCH ×2 (08:36→20:15)
[2022-04-26] MEDS: Thiamine 100 MG TAB PO SCH (08:36)
[2022-04-26] MEDS ORDERED: Vancomycin HCl 750 MG in Sodium Chloride 0.9% 250 ML 250 ML IVPB SCH (17:00)
[2022-04-27] MEDS: Rifaximin 550 MG TAB PO SCH (09:56)
[2022-04-27] MEDS: Thiamine 100 MG TAB PO SCH (09:57)
[2022-04-27 15:58] VITALS: BP 156/74; TEMP 97.7
== END 2022-04-27 18:44 | disposition home or self-care (01) | DRG 441 ==
LOC: ERS 17:22 → ERHOLD 19:33 → 2NO 20:05 → CCU 04-13 15:39 → IMCU/EMU 04-13 18:39 → MSONC 04-15 08:58
PROVIDERS: ADMIT Student in an Organized Health Care Education/Training Program; ATTEND Hospitalist
PROC: 30233N1 Transfusion of Nonautologous Red Blood Cells into Peripheral Vein, Percutaneous Approach (ICD-10-PCS; principal; 2022-04-07)
PROC: 5A1D70Z Performance of Urinary Filtration, Intermittent, Less than 6 Hours Per Day (ICD-10-PCS; 2022-04-14)
DX: K76.7 Hepatorenal syndrome (principal); A41.02 Sepsis due to Methicillin resistant Staphylococcus aureus; K72.00 Acute and subacute hepatic failure without coma; J18.9 Pneumonia, unspecified organism; N18.6 End stage renal disease; G93.41 Metabolic encephalopathy; E87.20 Acidosis, unspecified; J94.8 Other specified pleural conditions; K76.6 Portal hypertension; J98.11 Atelectasis; D61.818 Other pancytopenia; D63.1 Anemia in chronic kidney disease; E83.51 Hypocalcemia; E88.09 Other disorders of plasma-protein metabolism, not elsewhere classified; K70.31 Alcoholic cirrhosis of liver with ascites; Z99.2 Dependence on renal dialysis; Z79.82 Long term (current) use of aspirin; Z79.899 Other long term (current) drug therapy; Z91.14 Patient's other noncompliance with medication regimen; Z20.822 Contact with and (suspected) exposure to COVID-19
CPT/HCPCS: 36415; 36416; 36430; 36600; 51701; 70450; 71045; 74018; 74176; 76705; 80048; 80053; 80069; 80202; 80306; 80307; 81003; 81015; 82105; 82140; 82274; 82805; 83605; 83690; 83735; 84100; 84145; 84439; 84443; 84484; 85025; 85610; 85730; 86704; 86850; 86900; 86901; 87040; 87086; 87811; 90935; 93005; 96365; 96375; C9113; G0257; J0696; J1650; J2060; J2543; J3370; J3371; J3475; J3490; J7050; P9016; U0002

== ENCOUNTER 2022-04-30 10:44 | Inpatient (IN) | payer MEDICARE ==
[2022-04-30 11:30] LABS: Bacteria/HPF None Seen HPF (None Seen); Bilirubin Negative (Negative); Blood, Urine 2+ (Negative); Clarity Clear (Clear); Glucose, Urine (Dipstick) 30 mg/dL (Negative); Ketone, Urine Negative (Negative); Leukocyte Negative Leu/uL (Negative); Nitrite Negative (Negative); Protein, Urine (Dipstick) 300 mg/dL (Neg-Trace); Specific Gravity, Urine 1.015 (1.002-1.036); Squamous Epithelial 0-3 HPF (0-3); Urobilinogen Normal mg/dL (Less than 2); WBC/HPF 0-3 HPF (0-3)
[2022-04-30 11:34] LABS: #Basophils 0.1 thou/uL (0.0-0.2); #Eosinphils 0.1 thou/uL (0.0-0.7); #Lymphocytes 1.1 thou/uL (1.20-3.40); #Monocytes 0.5 thou/uL (0.11-0.59); #Neutrophils 1.5 thou/uL (1.40-6.50); %Basophils 1.9 % (0.0-1.0); %Eosinophils 4.1 % (0.0-10.0); %Lymphocytes 34.6 % (21.0-51.0); %Monocytes 13.8 % (0.0-10.0); %Neutrophils 45.5 % (42.0-75.0); Hemoglobin 8.9 g/dL (14.0-18.0); Mean Corpuscular HGB CONC 33.1 g/dL (32.0-36.0); Mean Corpuscular Hemoglobin 30.4 pg (27.0-31.0); Mean Corpuscular Volume 91.7 fl (78.0-98.0); Platelet Count 133 10x3/uL (130-400); RBC Distribution Width 14.8 % (11.5-14.5); Red Blood Cell (RBC) Count 2.92 mill/uL (4.70-6.10); White Blood Cell (WBC) Count 3.2 10x3/uL (4.8-10.8)
[2022-04-30 11:37] LABS: Amphetamine Not Detected (NotDetected); Barbiturates Screen Not Detected (NotDetected); Benzodiazepine Screen Not Detected (NotDetected); Cocaine Metabolite Screen Not Detected (NotDetected); Methadone Not Detected (NotDetected); Methamphetamine Not Detected (NotDetected); Opiate Screen Not Detected (NotDetected); Oxycodone Screen Not Detected (NotDetected); Phencyclidine (PCP) Not Detected (NotDetected); THC/Cannabinoid Screen Not Detected (NotDetected); Tricyclic Screen Not Detected (NotDetected)
[2022-04-30 11:44] LABS: ALT (SGPT) 21 U/L (8-55); AST (SGOT) 30 U/L (5-34); Albumin 2.3 g/dL (3.4-4.8); Alkaline Phosphatase 225 U/L (40-110); Anion Gap 12 mmol/L (10-20); BUN (Urea Nitrogen) 37 mg/dL (8.4-25.7); Bilirubin, Total 1.1 mg/dL (0.2-1.2); Calc. Creatinine Clearance 0 mL/min (70-130); Carbon Dioxide 27 mmol/L (23-31); Chloride 101 mmol/L (98-107); Estimated GFR 8; Globulin 4.5 g/dL (2.4-3.5); Glucose 125 mg/dL (80-115); Lipase 30 U/L (8-78); Potassium 4.3 mmol/L (3.5-5.1); Protein, Total 6.8 g/dL (5.8-8.1); Sodium 136 mmol/L (136-145)
[2022-04-30 12:10] LABS: Acetaminophen Less than 10.0 mcg/mL (10.0-30.0); Alcohol Less than 10 mg/dL (Less than 10); Salicylate Less than 8.0 mg/dL (15.0-30.0)
[2022-04-30] MEDS ORDERED: Acetaminophen 650 MG Suppository PR PRN (13:12)
[2022-04-30] MEDS ORDERED: Calcium Carbonate 500 MG ChewTAB PO PRN (13:12)
[2022-04-30] MEDS ORDERED: Ondansetron PF 4 MG/2 ML Vial IVP PRN (13:12)
[2022-04-30] MEDS ORDERED: Senokot S 8.6-50 MG TAB PO PRN (13:12)
[2022-04-30] MEDS ORDERED: Acetaminophen 325 MG TAB PO PRN (13:12)
[2022-04-30] MEDS ORDERED: Lactulose 10 GM/15 ML Oral Solution PR PRN (13:22)
[2022-04-30] MEDS ORDERED: Cholecalciferol 1,000 UNITS (25 MCG) TAB PO SCH (13:45)
[2022-04-30] MEDS ORDERED: Heparin 10,000 UNITS/ 10 ML VIAL ONE (13:48)
[2022-04-30 15:32] LABS: HBSAB Concentration Less than 8.00 mIU/mL; HBSAg Index 0.23 S/CO (0-0.99); Hep B Core Total Ab Non-Reactive (NonReactive); Hep B Core Total Index 0.15 S/CO (0-0.79); Hep B Surf AB Non-Reactive (NonReactive); Hep B Surf Ag Non-Reactive S/CO (NonReactive); Hep C IgG Ab Non-Reactive (NonReactive); Hep C Index 0.32 S/CO (0-0.79)
[2022-04-30] MEDS: Calcium Acetate 667 MG CAP PO SCH (16:59)
[2022-04-30] MEDS: Carvedilol 6.25 MG TAB PO SCH (16:59)
[2022-04-30] MEDS ORDERED: Lactulose 10 GM/15 ML Oral Solution PR SCH (17:00)
[2022-04-30] MEDS ORDERED: Vancomycin Diaylsis Sliding Scale (Wt 71-99) FS SCH (18:00)
[2022-04-30] MEDS ORDERED: HOLD VANCOMYCIN FOR LEVEL >25 IVP SCH (18:00)
[2022-04-30 18:49] LABS: Vancomycin, Random 11.3 ug/mL (See Comment)
[2022-04-30] MEDS ORDERED: Vancomycin 1 GM in Premix Bag 1 BAG IVPB SCH (19:30)
[2022-04-30] MEDS: Rifaximin 550 MG TAB PO SCH (21:54)
[2022-04-30] MEDS: Famotidine/PF 20 mg/2ml Vial SLOW IVP SCH (22:27)
[2022-04-30 23:08] LABS: Anion Gap 11 mmol/L (10-20); BUN (Urea Nitrogen) 17 mg/dL (8.4-25.7); Calc. Creatinine Clearance 21 mL/min (70-130); Calcium 8.2 mg/dL (7.8-10.44); Carbon Dioxide 28 mmol/L (23-31); Chloride 98 mmol/L (98-107); Estimated GFR 16; Glucose 144 mg/dL (80-115); Magnesium 1.8 mg/dL (1.6-2.6); Potassium 3.5 mmol/L (3.5-5.1); Sodium 133 mmol/L (136-145)
[2022-05-01 05:38] LABS: #Basophils 0.1 thou/uL (0.0-0.2); #Eosinphils 0.1 thou/uL (0.0-0.7); #Lymphocytes 1.3 thou/uL (1.20-3.40); #Monocytes 1.1 thou/uL (0.11-0.59); #Neutrophils 9.4 thou/uL (1.40-6.50); %Basophils 0.7 % (0.0-1.0); %Eosinophils 1.2 % (0.0-10.0); %Lymphocytes 11.2 % (21.0-51.0); %Monocytes 8.8 % (0.0-10.0); %Neutrophils 78.2 % (42.0-75.0); Hemoglobin 10.3 g/dL (14.0-18.0); Mean Corpuscular HGB CONC 34.3 g/dL (32.0-36.0); Mean Corpuscular Hemoglobin 31.2 pg (27.0-31.0); Mean Corpuscular Volume 91.1 fl (78.0-98.0); Mean Platelet Volume 8.2 fL (7.4-10.4); Platelet Count 161 10x3/uL (130-400); RBC Distribution Width 14.9 % (11.5-14.5); Red Blood Cell (RBC) Count 3.28 mill/uL (4.70-6.10)
[2022-05-01] MEDS ORDERED: Heparin 5,000 UNITS/ML VIAL SC SCH (06:00)
[2022-05-01 06:10] LABS: ALT (SGPT) 20 U/L (8-55); AST (SGOT) 31 U/L (5-34); Albumin 2.1 g/dL (3.4-4.8); Alkaline Phosphatase 216 U/L (40-110); Anion Gap 16 mmol/L (10-20); BUN (Urea Nitrogen) 21 mg/dL (8.4-25.7); Bilirubin, Total 1.5 mg/dL (0.2-1.2); Calc. Creatinine Clearance 16 mL/min (70-130); Calcium 8.6 mg/dL (7.8-10.44); Carbon Dioxide 23 mmol/L (23-31); Chloride 98 mmol/L (98-107); Estimated GFR 13; Globulin 4.9 g/dL (2.4-3.5); Glucose 106 mg/dL (80-115); Magnesium 1.8 mg/dL (1.6-2.6); Phosphorus 4.2 mg/dL (2.3-4.7); Potassium 3.8 mmol/L (3.5-5.1); Sodium 133 mmol/L (136-145)
[2022-05-01] MEDS: Folic Acid 1 MG TAB PO SCH (08:37)
[2022-05-01] MEDS: Calcium Acetate 667 MG CAP PO SCH ×3 (08:37→16:52)
[2022-05-01] MEDS: Carvedilol 6.25 MG TAB PO SCH (08:37)
[2022-05-01] MEDS: Multivit, Therapeutic 1 TAB PO SCH (08:38)
[2022-05-01] MEDS: Thiamine 100 MG TAB PO SCH (08:38)
[2022-05-01] MEDS: Rifaximin 550 MG TAB PO SCH ×2 (08:38→21:01)
[2022-05-01] MEDS ORDERED: FLU VACC QS2022-23(6MOS UP)/PF 60 MCG/0.5 ML SYRINGE IM ONE (09:00)
[2022-05-01] MEDS: Heparin 5,000 UNITS/ML VIAL SC SCH ×2 (15:02→21:02)
[2022-05-01] MEDS: Famotidine/PF 20 mg/2ml Vial SLOW IVP SCH (21:01)
[2022-05-02 04:16] LABS: #Basophils 0.1 thou/uL (0.0-0.2); #Eosinphils 0.2 thou/uL (0.0-0.7); #Lymphocytes 2.2 thou/uL (1.20-3.40); #Monocytes 0.7 thou/uL (0.11-0.59); %Basophils 1.2 % (0.0-1.0); %Eosinophils 3.4 % (0.0-10.0); %Monocytes 10.8 % (0.0-10.0); %Neutrophils 49.6 % (42.0-75.0); Hemoglobin 8.4 g/dL (14.0-18.0); Mean Corpuscular HGB CONC 34.5 g/dL (32.0-36.0); Mean Corpuscular Hemoglobin 31.4 pg (27.0-31.0); Mean Corpuscular Volume 91.1 fl (78.0-98.0); Mean Platelet Volume 8.5 fL (7.4-10.4); Platelet Count 143 10x3/uL (130-400); RBC Distribution Width 14.9 % (11.5-14.5); Red Blood Cell (RBC) Count 2.69 mill/uL (4.70-6.10); White Blood Cell (WBC) Count 6.1 10x3/uL (4.8-10.8)
[2022-05-02 04:28] LABS: ALT (SGPT) 17 U/L (8-55); AST (SGOT) 35 U/L (5-34); Albumin 2.1 g/dL (3.4-4.8); Alkaline Phosphatase 198 U/L (40-110); Anion Gap 17 mmol/L (10-20); BUN (Urea Nitrogen) 34 mg/dL (8.4-25.7); Bilirubin, Total 1.1 mg/dL (0.2-1.2); Calc. Creatinine Clearance 11 mL/min (70-130); Calcium 8.1 mg/dL (7.8-10.44); Carbon Dioxide 21 mmol/L (23-31); Chloride 99 mmol/L (98-107); Estimated GFR 9; Globulin 4.4 g/dL (2.4-3.5); Glucose 135 mg/dL (80-115); Protein, Total 6.5 g/dL (5.8-8.1); Sodium 133 mmol/L (136-145)
[2022-05-02] MEDS: Calcium Acetate 667 MG CAP PO SCH ×3 (10:09→18:30)
[2022-05-02] MEDS: Multivit, Therapeutic 1 TAB PO SCH (10:10)
[2022-05-02] MEDS: Thiamine 100 MG TAB PO SCH (10:10)
[2022-05-02] MEDS: Rifaximin 550 MG TAB PO SCH ×2 (10:10→20:40)
[2022-05-02] MEDS: Heparin 5,000 UNITS/ML VIAL SC SCH ×3 (10:10→20:38)
[2022-05-02] MEDS: Folic Acid 1 MG TAB PO SCH (10:10)
[2022-05-02] MEDS: Famotidine/PF 20 mg/2ml Vial SLOW IVP SCH (20:39)
[2022-05-02] MEDS ORDERED: Polyethylene Glycol 3350 17 GM Packet PO SCH (20:45)
[2022-05-03 05:05] LABS: #Basophils 0.1 thou/uL (0.0-0.2); #Eosinphils 0.3 thou/uL (0.0-0.7); #Lymphocytes 1.4 thou/uL (1.20-3.40); #Monocytes 0.5 thou/uL (0.11-0.59); #Neutrophils 1.9 thou/uL (1.40-6.50); %Basophils 1.5 % (0.0-1.0); %Eosinophils 7.1 % (0.0-10.0); %Lymphocytes 32.7 % (21.0-51.0); %Monocytes 12.9 % (0.0-10.0); %Neutrophils 45.9 % (42.0-75.0); Hemoglobin 8.1 g/dL (14.0-18.0); Mean Corpuscular HGB CONC 34.9 g/dL (32.0-36.0); Mean Corpuscular Hemoglobin 32.1 pg (27.0-31.0); Mean Corpuscular Volume 92.1 fl (78.0-98.0); Mean Platelet Volume 7.7 fL (7.4-10.4); Platelet Count 128 10x3/uL (130-400); RBC Distribution Width 14.9 % (11.5-14.5); Red Blood Cell (RBC) Count 2.52 mill/uL (4.70-6.10); White Blood Cell (WBC) Count 4.2 10x3/uL (4.8-10.8)
[2022-05-03 05:14] LABS: INR-International Normal Ratio 1.3; PTT 39.7 sec (22.9-36.1); Prothrombin Time 16.6 sec (12.0-14.7)
[2022-05-03 05:37] LABS: ALT (SGPT) 17 U/L (8-55); AST (SGOT) 28 U/L (5-34); Albumin 1.9 g/dL (3.4-4.8); Alkaline Phosphatase 203 U/L (40-110); Anion Gap 15 mmol/L (10-20); BUN (Urea Nitrogen) 47 mg/dL (8.4-25.7); Bilirubin, Total 0.9 mg/dL (0.2-1.2); Calc. Creatinine Clearance 9 mL/min (70-130); Calcium 8.6 mg/dL (7.8-10.44); Carbon Dioxide 25 mmol/L (23-31); Chloride 100 mmol/L (98-107); Estimated GFR 6; Globulin 4.3 g/dL (2.4-3.5); Glucose 117 mg/dL (80-115); Potassium 3.7 mmol/L (3.5-5.1); Protein, Total 6.2 g/dL (5.8-8.1); Sodium 136 mmol/L (136-145)
[2022-05-03 07:09] LABS: Vancomycin, Random 23.9 ug/mL (See Comment)
[2022-05-03] MEDS: Heparin 5,000 UNITS/ML VIAL SC SCH ×3 (08:12→21:46)
[2022-05-03] MEDS: Calcium Acetate 667 MG CAP PO SCH ×3 (08:16→17:55)
[2022-05-03] MEDS ORDERED: Heparin 10,000 UNITS/ 10 ML VIAL ONE (08:30)
[2022-05-03] MEDS: Folic Acid 1 MG TAB PO SCH (14:26)
[2022-05-03] MEDS: Rifaximin 550 MG TAB PO SCH ×2 (14:26→21:45)
[2022-05-03] MEDS: Multivit, Therapeutic 1 TAB PO SCH (14:26)
[2022-05-03] MEDS: Thiamine 100 MG TAB PO SCH (14:26)
[2022-05-03] MEDS: Polyethylene Glycol 3350 17 GM Packet PO SCH (14:26)
[2022-05-03] MEDS ORDERED: Vancomycin HCl 250 MG in Sodium Chloride 0.9% 100 ML IVPB SCH (17:00)
[2022-05-03] MEDS: Famotidine/PF 20 mg/2ml Vial SLOW IVP SCH (21:45)
[2022-05-04] MEDS: Melatonin 3 MG TAB PO PRN ×2 (00:59→21:59)
[2022-05-04 06:14] LABS: ALT (SGPT) 16 U/L (8-55); AST (SGOT) 32 U/L (5-34); Albumin 2.2 g/dL (3.4-4.8); Alkaline Phosphatase 207 U/L (40-110); Anion Gap 11 mmol/L (10-20); BUN (Urea Nitrogen) 21 mg/dL (8.4-25.7); Bilirubin, Total 0.9 mg/dL (0.2-1.2); Calc. Creatinine Clearance 14 mL/min (70-130); Calcium 8.9 mg/dL (7.8-10.44); Carbon Dioxide 27 mmol/L (23-31); Chloride 102 mmol/L (98-107); Estimated GFR 11; Globulin 4.2 g/dL (2.4-3.5); Glucose 90 mg/dL (80-115); Protein, Total 6.4 g/dL (5.8-8.1); Sodium 136 mmol/L (136-145)
[2022-05-04 06:16] LABS: Anisocytosis SLIGHT = 6-15 cells (100X) (0-5/hpf); Eosinophils 12 % (0-10); Hemoglobin 8.6 g/dL (14.0-18.0); Lymphocytes 32 % (21-51); MDiff Complete? YES; Mean Corpuscular HGB CONC 34.6 g/dL (32.0-36.0); Mean Corpuscular Hemoglobin 31.6 pg (27.0-31.0); Mean Corpuscular Volume 91.2 fl (78.0-98.0); Mean Platelet Volume 7.7 fL (7.4-10.4); Monocytes 8 % (0-10); Neutrophil 48 % (42-75); Ovalocytes SLIGHT = 2-5 cells (100X) (0-1/hpf); Platelet Count 115 10x3/uL (130-400); Platelet Morphology Comment Appears Decreased; Polychromasia SLIGHT = 2-3 cells (100X) (0-2/hpf); RBC Distribution Width 15.2 % (11.5-14.5); Red Blood Cell (RBC) Count 2.73 mill/uL (4.70-6.10); White Blood Cell (WBC) Count 4.8 10x3/uL (4.8-10.8)
[2022-05-04] MEDS: Polyethylene Glycol 3350 17 GM Packet PO SCH (10:25)
[2022-05-04] MEDS: Thiamine 100 MG TAB PO SCH (10:28)
[2022-05-04] MEDS: Heparin 5,000 UNITS/ML VIAL SC SCH ×3 (10:28→22:04)
[2022-05-04] MEDS: Folic Acid 1 MG TAB PO SCH (10:28)
[2022-05-04] MEDS: Multivit, Therapeutic 1 TAB PO SCH (10:28)
[2022-05-04] MEDS: Calcium Acetate 667 MG CAP PO SCH ×3 (10:28→18:31)
[2022-05-04] MEDS: Rifaximin 550 MG TAB PO SCH ×2 (10:28→21:59)
[2022-05-04] MEDS ORDERED: Ergocalciferol 1.25 MG(50,000 UNITS) CAP PO SCH (12:30)
[2022-05-04] MEDS: Carvedilol 3.125 MG TAB PO SCH (18:31)
[2022-05-04] MEDS: Famotidine/PF 20 mg/2ml Vial SLOW IVP SCH (22:04)
[2022-05-04] MEDS: Lactulose 10 GM/15 ML Oral Solution PR SCH (23:01)
[2022-05-05 07:38] LABS: #Basophils 0.1 thou/uL (0.0-0.2); #Eosinphils 0.3 thou/uL (0.0-0.7); #Lymphocytes 1.9 thou/uL (1.20-3.40); #Monocytes 0.7 thou/uL (0.11-0.59); #Neutrophils 1.5 thou/uL (1.40-6.50); %Basophils 1.3 % (0.0-1.0); %Eosinophils 7.8 % (0.0-10.0); %Lymphocytes 41.6 % (21.0-51.0); %Monocytes 14.6 % (0.0-10.0); %Neutrophils 34.6 % (42.0-75.0); Hemoglobin 8.4 g/dL (14.0-18.0); Mean Corpuscular HGB CONC 34.2 g/dL (32.0-36.0); Mean Corpuscular Hemoglobin 31.4 pg (27.0-31.0); Mean Corpuscular Volume 91.8 fl (78.0-98.0); Mean Platelet Volume 7.2 fL (7.4-10.4); Platelet Count 129 10x3/uL (130-400); RBC Distribution Width 15.1 % (11.5-14.5); Red Blood Cell (RBC) Count 2.68 mill/uL (4.70-6.10); White Blood Cell (WBC) Count 4.5 10x3/uL (4.8-10.8)
[2022-05-05 07:45] LABS: Vancomycin, Random 17.6 ug/mL (See Comment)
[2022-05-05 07:47] LABS: ALT (SGPT) 17 U/L (8-55); AST (SGOT) 30 U/L (5-34); Albumin 2.1 g/dL (3.4-4.8); Alkaline Phosphatase 221 U/L (40-110); Anion Gap 13 mmol/L (10-20); BUN (Urea Nitrogen) 31 mg/dL (8.4-25.7); Bilirubin, Total 0.8 mg/dL (0.2-1.2); Calc. Creatinine Clearance 10 mL/min (70-130); Calcium 9.2 mg/dL (7.8-10.44); Carbon Dioxide 26 mmol/L (23-31); Chloride 101 mmol/L (98-107); Estimated GFR 8; Globulin 4.1 g/dL (2.4-3.5); Glucose 101 mg/dL (80-115); Magnesium 2.3 mg/dL (1.6-2.6); Potassium 4.3 mmol/L (3.5-5.1); Protein, Total 6.2 g/dL (5.8-8.1); Sodium 136 mmol/L (136-145)
[2022-05-05] MEDS ORDERED: Heparin 10,000 UNITS/ 10 ML VIAL ONE (08:46)
[2022-05-05] MEDS ORDERED: Lactulose 10 GM/15 ML Oral Solution PR PRN (14:04)
[2022-05-05] MEDS: Calcium Acetate 667 MG CAP PO SCH ×3 (14:08→17:49)
[2022-05-05] MEDS: Folic Acid 1 MG TAB PO SCH (14:09)
[2022-05-05] MEDS: Carvedilol 3.125 MG TAB PO SCH ×2 (14:09→17:49)
[2022-05-05] MEDS: Heparin 5,000 UNITS/ML VIAL SC SCH ×3 (14:09→20:48)
[2022-05-05] MEDS: Polyethylene Glycol 3350 17 GM Packet PO SCH (14:11)
[2022-05-05] MEDS: Multivit, Therapeutic 1 TAB PO SCH (14:11)
[2022-05-05] MEDS: Thiamine 100 MG TAB PO SCH (14:11)
[2022-05-05] MEDS: Lactulose 10 GM/15 ML Oral Solution PR SCH (14:13)
[2022-05-05] MEDS: Rifaximin 550 MG TAB PO SCH ×2 (14:17→20:48)
[2022-05-05] MEDS: EPOETIN ALFA-EPBX (ESRD) 10,000 UNIT/ML VIAL SC SCH (14:18)
[2022-05-05] MEDS ORDERED: Vancomycin HCl 750 MG in Sodium Chloride 0.9% 250 ML 250 ML IVPB SCH (17:00)
[2022-05-05] MEDS: Famotidine/PF 20 mg/2ml Vial SLOW IVP SCH (20:48)
[2022-05-06 05:48] LABS: Hemoglobin 8.5 g/dL (14.0-18.0); Mean Corpuscular Hemoglobin 31.4 pg (27.0-31.0); Mean Corpuscular Volume 92.3 fl (78.0-98.0); Mean Platelet Volume 7.6 fL (7.4-10.4); Platelet Count 98 10x3/uL (130-400); White Blood Cell (WBC) Count 3.7 10x3/uL (4.8-10.8)
[2022-05-06 06:06] LABS: ALT (SGPT) 19 U/L (8-55); AST (SGOT) 34 U/L (5-34); Alkaline Phosphatase 227 U/L (40-110); Anion Gap 15 mmol/L (10-20); BUN (Urea Nitrogen) 21 mg/dL (8.4-25.7); Bilirubin, Total 0.9 mg/dL (0.2-1.2); Calc. Creatinine Clearance 14 mL/min (70-130); Calcium 9.3 mg/dL (7.8-10.44); Carbon Dioxide 24 mmol/L (23-31); Chloride 104 mmol/L (98-107); Estimated GFR 11; Globulin 4.4 g/dL (2.4-3.5); Glucose 150 mg/dL (80-115); Potassium 3.6 mmol/L (3.5-5.1); Protein, Total 6.4 g/dL (5.8-8.1); Sodium 139 mmol/L (136-145)
[2022-05-06 06:15] LABS: Anisocytosis SLIGHT = 6-15 cells (100X) (0-5/hpf); Eosinophils 5 % (0-10); Lymphocytes 38 % (21-51); MDiff Complete? YES; Monocytes 13 % (0-10); Neutrophil 44 % (42-75); Ovalocytes SLIGHT = 2-5 cells (100X) (0-1/hpf); Platelet Morphology Comment Appears Decreased
[2022-05-06] MEDS: Polyethylene Glycol 3350 17 GM Packet PO SCH (09:00)
[2022-05-06] MEDS: Multivit, Therapeutic 1 TAB PO SCH (09:02)
[2022-05-06] MEDS: Thiamine 100 MG TAB PO SCH (09:02)
[2022-05-06] MEDS: Calcium Acetate 667 MG CAP PO SCH ×3 (09:02→18:37)
[2022-05-06] MEDS: Rifaximin 550 MG TAB PO SCH ×2 (09:02→20:57)
[2022-05-06] MEDS: Folic Acid 1 MG TAB PO SCH (09:03)
[2022-05-06] MEDS: Carvedilol 3.125 MG TAB PO SCH ×2 (09:03→18:37)
[2022-05-06] MEDS: Heparin 5,000 UNITS/ML VIAL SC SCH (11:00)
[2022-05-06] MEDS: Famotidine/PF 20 mg/2ml Vial SLOW IVP SCH (20:57)
[2022-05-07 06:30] LABS: #Eosinphils 0.3 thou/uL (0.0-0.7); #Lymphocytes 1.4 thou/uL (1.20-3.40); #Monocytes 0.6 thou/uL (0.11-0.59); #Neutrophils 1.9 thou/uL (1.40-6.50); %Eosinophils 6.7 % (0.0-10.0); %Lymphocytes 33.6 % (21.0-51.0); %Monocytes 13.3 % (0.0-10.0); %Neutrophils 45.4 % (42.0-75.0); Hemoglobin 7.8 g/dL (14.0-18.0); Mean Corpuscular HGB CONC 34.2 g/dL (32.0-36.0); Mean Corpuscular Hemoglobin 31.5 pg (27.0-31.0); Mean Corpuscular Volume 92.1 fl (78.0-98.0); Mean Platelet Volume 8.1 fL (7.4-10.4); Platelet Count 79 10x3/uL (130-400); RBC Distribution Width 15.2 % (11.5-14.5); Red Blood Cell (RBC) Count 2.46 mill/uL (4.70-6.10); White Blood Cell (WBC) Count 4.2 10x3/uL (4.8-10.8)
[2022-05-07 06:52] LABS: ALT (SGPT) 19 U/L (8-55); AST (SGOT) 32 U/L (5-34); Albumin 1.8 g/dL (3.4-4.8); Alkaline Phosphatase 224 U/L (40-110); Anion Gap 13 mmol/L (10-20); BUN (Urea Nitrogen) 29 mg/dL (8.4-25.7); Bilirubin, Total 0.7 mg/dL (0.2-1.2); Calc. Creatinine Clearance 10 mL/min (70-130); Calcium 9.4 mg/dL (7.8-10.44); Carbon Dioxide 25 mmol/L (23-31); Chloride 103 mmol/L (98-107); Estimated GFR 8; Glucose 118 mg/dL (80-115); Magnesium 2.1 mg/dL (1.6-2.6); Potassium 3.6 mmol/L (3.5-5.1); Protein, Total 5.8 g/dL (5.8-8.1); Sodium 137 mmol/L (136-145)
[2022-05-07 07:35] LABS: Vancomycin, Random 22.7 ug/mL (See Comment)
[2022-05-07] MEDS: Calcium Acetate 667 MG CAP PO SCH ×3 (08:20→19:20)
[2022-05-07] MEDS: Zinc Sulfate 220 MG CAP PO SCH (08:20)
[2022-05-07] MEDS: Carvedilol 3.125 MG TAB PO SCH ×2 (08:20→19:20)
[2022-05-07] MEDS: EPOETIN ALFA-EPBX (ESRD) 10,000 UNIT/ML VIAL SC SCH ×2 (08:20→19:22)
[2022-05-07] MEDS: Thiamine 100 MG TAB PO SCH (08:20)
[2022-05-07] MEDS: Multivit, Therapeutic 1 TAB PO SCH (08:20)
[2022-05-07] MEDS: Rifaximin 550 MG TAB PO SCH ×2 (08:20→20:26)
[2022-05-07] MEDS: Folic Acid 1 MG TAB PO SCH (08:20)
[2022-05-07] MEDS: Polyethylene Glycol 3350 17 GM Packet PO SCH (08:20)
[2022-05-07] MEDS ORDERED: Heparin 10,000 UNITS/ 10 ML VIAL ONE (10:15)
[2022-05-07] MEDS: Heparin 5,000 UNITS/ML VIAL SC SCH ×2 (15:17→20:33)
[2022-05-07] MEDS ORDERED: Vancomycin HCl 250 MG in Sodium Chloride 0.9% 100 ML IVPB SCH (17:00)
[2022-05-07] MEDS: Famotidine/PF 20 mg/2ml Vial SLOW IVP SCH (20:29)
[2022-05-08] MEDS: Thiamine 100 MG TAB PO SCH (08:28)
[2022-05-08] MEDS: Calcium Acetate 667 MG CAP PO SCH ×3 (08:28→17:39)
[2022-05-08] MEDS: Zinc Sulfate 220 MG CAP PO SCH (08:29)
[2022-05-08] MEDS: Rifaximin 550 MG TAB PO SCH ×2 (08:29→21:10)
[2022-05-08] MEDS: Folic Acid 1 MG TAB PO SCH (08:29)
[2022-05-08] MEDS: Carvedilol 3.125 MG TAB PO SCH ×2 (08:29→17:40)
[2022-05-08] MEDS: Heparin 5,000 UNITS/ML VIAL SC SCH ×4 (08:29→21:20)
[2022-05-08] MEDS: Polyethylene Glycol 3350 17 GM Packet PO SCH (08:29)
[2022-05-08] MEDS: Multivit, Therapeutic 1 TAB PO SCH (08:29)
[2022-05-08 09:12] LABS: #Basophils 0.1 thou/uL (0.0-0.2); #Eosinphils 0.3 thou/uL (0.0-0.7); #Lymphocytes 1.3 thou/uL (1.20-3.40); #Monocytes 0.6 thou/uL (0.11-0.59); #Neutrophils 1.9 thou/uL (1.40-6.50); %Basophils 1.2 % (0.0-1.0); %Eosinophils 7.3 % (0.0-10.0); %Lymphocytes 31.1 % (21.0-51.0); %Monocytes 14.7 % (0.0-10.0); %Neutrophils 45.7 % (42.0-75.0); Hemoglobin 7.5 g/dL (14.0-18.0); Mean Corpuscular HGB CONC 32.8 g/dL (32.0-36.0); Mean Corpuscular Hemoglobin 30.7 pg (27.0-31.0); Mean Corpuscular Volume 93.6 fl (78.0-98.0); Platelet Count 87 10x3/uL (130-400); RBC Distribution Width 15.1 % (11.5-14.5); Red Blood Cell (RBC) Count 2.45 mill/uL (4.70-6.10); White Blood Cell (WBC) Count 4.1 10x3/uL (4.8-10.8)
[2022-05-08 09:37] LABS: ALT (SGPT) 18 U/L (8-55); AST (SGOT) 30 U/L (5-34); Albumin 1.8 g/dL (3.4-4.8); Alkaline Phosphatase 226 U/L (40-110); Anion Gap 10 mmol/L (10-20); BUN (Urea Nitrogen) 26 mg/dL (8.4-25.7); Bilirubin, Total 0.7 mg/dL (0.2-1.2); Calc. Creatinine Clearance 13 mL/min (70-130); Carbon Dioxide 29 mmol/L (23-31); Chloride 100 mmol/L (98-107); Estimated GFR 10; Globulin 3.9 g/dL (2.4-3.5); Glucose 139 mg/dL (80-115); Magnesium 1.9 mg/dL (1.6-2.6); Potassium 3.8 mmol/L (3.5-5.1); Protein, Total 5.7 g/dL (5.8-8.1); Sodium 135 mmol/L (136-145)
[2022-05-08] MEDS: Famotidine/PF 20 mg/2ml Vial SLOW IVP SCH (21:20)
[2022-05-09 06:24] LABS: #Eosinphils 0.2 thou/uL (0.0-0.7); #Lymphocytes 1.5 thou/uL (1.20-3.40); #Monocytes 0.5 thou/uL (0.11-0.59); #Neutrophils 1.9 thou/uL (1.40-6.50); %Basophils 0.6 % (0.0-1.0); %Eosinophils 5.3 % (0.0-10.0); %Lymphocytes 36.6 % (21.0-51.0); %Monocytes 12.1 % (0.0-10.0); %Neutrophils 45.4 % (42.0-75.0); Hemoglobin 7.7 g/dL (14.0-18.0); Mean Corpuscular HGB CONC 33.9 g/dL (32.0-36.0); Mean Corpuscular Hemoglobin 31.4 pg (27.0-31.0); Mean Corpuscular Volume 92.6 fl (78.0-98.0); Mean Platelet Volume 7.9 fL (7.4-10.4); Platelet Count 84 10x3/uL (130-400); RBC Distribution Width 15.4 % (11.5-14.5); Red Blood Cell (RBC) Count 2.44 mill/uL (4.70-6.10); White Blood Cell (WBC) Count 4.2 10x3/uL (4.8-10.8)
[2022-05-09 06:34] LABS: ALT (SGPT) 13 U/L (8-55); AST (SGOT) 23 U/L (5-34); Albumin 1.9 g/dL (3.4-4.8); Alkaline Phosphatase 176 U/L (40-110); Anion Gap 11 mmol/L (10-20); BUN (Urea Nitrogen) 35 mg/dL (8.4-25.7); Bilirubin, Total 0.7 mg/dL (0.2-1.2); Calc. Creatinine Clearance 10 mL/min (70-130); Calcium 7.7 mg/dL (7.8-10.44); Carbon Dioxide 27 mmol/L (23-31); Chloride 103 mmol/L (98-107); Estimated GFR 8; Globulin 3.7 g/dL (2.4-3.5); Glucose 122 mg/dL (80-115); Magnesium 2.1 mg/dL (1.6-2.6); Potassium 4.3 mmol/L (3.5-5.1); Protein, Total 5.6 g/dL (5.8-8.1); Sodium 137 mmol/L (136-145)
[2022-05-09] MEDS ORDERED: Morphine 2 MG/ML VIAL SLOW IVP PRN (11:03)
[2022-05-09] MEDS: Carvedilol 3.125 MG TAB PO SCH (12:13)
[2022-05-09] MEDS: Calcium Acetate 667 MG CAP PO SCH (12:13)
[2022-05-09] MEDS: Folic Acid 1 MG TAB PO SCH (12:13)
[2022-05-09] MEDS: Rifaximin 550 MG TAB PO SCH (12:14)
[2022-05-09] MEDS: Multivit, Therapeutic 1 TAB PO SCH (12:14)
[2022-05-09] MEDS: Heparin 5,000 UNITS/ML VIAL SC SCH (12:14)
[2022-05-09] MEDS: Polyethylene Glycol 3350 17 GM Packet PO SCH (12:14)
[2022-05-09] MEDS: Zinc Sulfate 220 MG CAP PO SCH (12:14)
[2022-05-09] MEDS: Thiamine 100 MG TAB PO SCH (12:14)
[2022-05-09] MEDS ORDERED: Lorazepam 2 MG/ML VIAL SLOW IVP SCH (14:00)
[2022-05-09] MEDS ORDERED: Lorazepam 2 MG/ML VIAL SLOW IVP PRN (14:32)
[2022-05-09 16:42] VITALS: BP 122/62
[2022-05-09 20:58] VITALS: TEMP 97.8
[2022-05-11] MEDS ORDERED: Ergocalciferol 1.25 MG(50,000 UNITS) CAP PO SCH (09:00)
== END 2022-05-10 04:43 | disposition expired | DRG 441 ==
LOC: SUATTDRO 10:44 → ERS 10:44 → T4-B 13:06 → NEURO 23:55 → T4-A 05-09 16:04
PROVIDERS: ADMIT Internal Medicine; ATTEND Family Medicine
PROC: 5A1D70Z Performance of Urinary Filtration, Intermittent, Less than 6 Hours Per Day (ICD-10-PCS; principal; 2022-04-30)
DX: K76.82 Hepatic encephalopathy (principal); G93.41 Metabolic encephalopathy; N18.6 End stage renal disease; K76.7 Hepatorenal syndrome; E87.20 Acidosis, unspecified; R78.81 Bacteremia; J94.8 Other specified pleural conditions; I12.0 Hypertensive chronic kidney disease with stage 5 chronic kidney disease or end stage renal disease; D61.818 Other pancytopenia; I38 Endocarditis, valve unspecified; K70.31 Alcoholic cirrhosis of liver with ascites; Z51.5 Encounter for palliative care; Z66 Do not resuscitate; I35.0 Nonrheumatic aortic (valve) stenosis; D63.1 Anemia in chronic kidney disease; Z79.899 Other long term (current) drug therapy; Z98.890 Other specified postprocedural states; Z99.2 Dependence on renal dialysis; Z91.14 Patient's other noncompliance with medication regimen; Z20.822 Contact with and (suspected) exposure to COVID-19; E03.9 Hypothyroidism, unspecified; R00.1 Bradycardia, unspecified; I95.9 Hypotension, unspecified
CPT/HCPCS: 36415; 36416; 51701; 70450; 76705; 80053; 80202; 80306; 80307; 81003; 81015; 82140; 83605; 83690; 83735; 84100; 84443; 84484; 85025; 85610; 85730; 86704; 87040; 87086; 90471; 90686; 90935; 93005; 93010; G0008; G0257; J1644; J3370; J3370-JW; J3371; J3490; J7050; Q5105; S0028